=== PATIENT | female | born 1960 | race African-American/Black ===

== ENCOUNTER → 2019-06-18 | Outpatient (CLI) | payer BC ==
--- NOTE | 2019-06-18 14:02 | XCELERA REPORT ---
[address] [place] [facility] [address] Lower Extremity Venous Evaluation Procedure: Color flow and duplex imaging of the veins of the left lower extremity as well as the right Common Femoral vein. Right Sided Venous Evaluation The right common femoral vein is fully compressible. Normal vessel filling wall to wall, compression and augmentation as well as Colour flow down to the infrageniculate veins. Left Sided Venous Evaluation Normal vessel filling wall to wall, compression and augmentation as well as Colour flow down to the infrageniculate veins. Interpretation Summary No duplex evidence of DVT or obstruction in the left lower extremity nor in the right Common Femoral vein. Name: DEANGELO PETERSON Age: 59 yrs Gender: Female : 1960 Patient Status: Outpatient Patient Location: Study Date: 06/18/2019 01:06 PM Reason For Study: LLE PAIN Ordering Physician: ISAIAS WU Performed By: Penny Moncada : ISAIAS WU > Estuardo Price
== END ==
LOC: SP 12:42
PROVIDERS: ATTEND Physician Assistant
DX: M79.605 Pain in left leg (principal); M79.89 Other specified soft tissue disorders
CPT/HCPCS: 93971

== ENCOUNTER 2019-07-30 06:29 | Inpatient (IN) | payer BC ==
[2019-07-30] MEDS ORDERED: METOPROLOL TARTRATE PF/INJ 5 MG/5 ML SDV IV ONE ×2 (06:46→06:48)
[2019-07-30] MEDS ORDERED: ASPIRIN 81 MG TABLET, CHEWABLE PO ONE (06:48)
--- NOTE | 2019-07-30 06:56 | ER Document Report ---
ED General - General Chief Complaint: Breathing Difficulty Stated Complaint: CHEST PAIN Time Seen by Provider: 07/30/19 06:41 Primary Care Provider: ISAIAS WU PA [PHYSICIAN BUSINESS PERFORMANCE SPECIALIST] - Follow up as needed TRAVEL OUTSIDE OF THE [place] IN LAST 30 DAYS: No - HPI Notes: Mrs. Aleman is a 59-year-old female presenting with a chief complaint of palpitations, rapid heart rate shortness of breath and minimal tightness in central chest area without radiation. Patient awakened with symptoms this morning and they are persistent. This lady has a history of hypertension and is followed by Dr. Ramos. She had a previous hospitalization in 2010 for paroxysmal atrial fibrillation. She says she is not taking aspirin or any type of anticoagulant. Non-smoker. No known history of hyperlipidemia. Denies diabetes. Family history negative for CAD. Denies use of alcohol or drugs. Pertinent prior history: Surgery for fibroid uterus about 10 years ago. Postmenopausal. Allergy to penicillin. - Related Data Allergies/Adverse Reactions: Penicillins Allergy (Intermediate, Verified 08/06/11 09:38) Swelling, itching Past Medical History - General Information source: Patient, Relative - Social History Smoking Status: Never Smoker Family History: Reviewed & Not Pertinent Patient has suicidal ideation: No Patient has homicidal ideation: No - Past Medical History Cardiac Medical History: Reports: Hx Hypertension - Controlled with meds Denies: Hx Coronary Artery Disease, Hx Heart Attack Pulmonary Medical History: Denies: Hx Asthma, Hx Bronchitis, Hx COPD, Hx Pneumonia Neurological Medical History: Denies: Hx Cerebrovascular Accident, Hx Seizures Musculoskeletal Medical History: Denies Hx Arthritis Past Surgical History: Reports: Hx Gynecologic Surgery - Uterine fibroids removed - Immunizations Hx Diphtheria, Pertussis, Tetanus Vaccination: Yes Review of Systems - Review of Systems Notes: Constitutional: Negative for fever. HENT: Negative for sore throat. Eyes: Negative for visual changes. Cardiovascular: As per HPI. Respiratory: As per HPI. Gastrointestinal: Negative for abdominal pain, vomiting or diarrhea. Genitourinary: Negative for dysuria. Musculoskeletal: Negative for back pain. Skin: Negative for rash. Neurological: Negative for headaches, weakness or numbness. 10 point ROS negative except as marked above and in HPI. Physical Exam - Vital signs Vitals: Temp Pulse Resp BP Pulse Ox 97.7 F 70 18 114/75 95 07/30/19 06:41 07/30/19 06:41 07/30/19 06:41 07/30/19 06:41 07/30/19 06:41 - Notes Notes: GENERAL: Well-developed well-nourished female approximately stated age who appears anxious. SKIN: Warm and dry. Good turgor no rashes. HEAD: Normocephalic atraumatic. EYES: PERRLA. EOMI. Conjunctivae and sclerae clear. EARS: CANALS AND TMS CLEAR. NOSE: CLEAR. MOUTH: Moist mucosa. Good dentition. No stridor or edema. No drooling. Throat: Clear. NECK: Supple. No masses or thyromegaly. No adenopathy. Carotids 2+ without bruits. No JVD. BACK: Symmetrical without tenderness. CHEST: Respirations unlabored. Breath sounds clear and symmetrical. HEART: Rhythm is rapid and irregularly irregular. No murmur gallop or rub. ABDOMEN: Soft nontender without masses, organomegaly or rebound. Bowel sounds normally active. No bruits. GENITALIA: Deferred. EXTREMITIES: Trace ankle edema bilaterally. No calf tenderness. Cap refill less than 1.5 seconds. Dorsalis pedis and posterior tibial pulses 3+ and symmetrical. NEUROLOGICAL: GCS 15. Alert and oriented x3. Normal gait. Fluent speech. Cranial nerves II through XII intact. Sensorimotor and cerebellar normal. Normal tone. Psychiatric: Anxious. Course - Re-evaluation Re-evalutation: 07/30/19 07:33 Patient was initially given a total of 15 mg of metoprolol and 5 mg increments. Rate came down to about 140. Symptoms unchanged. Chest remains clear. Blood pressure 114/70. I am going to give her 500 cc bolus of normal saline and also 20 mg of diltiazem bolus and a continuous IV infusion of diltiazem 5 mg/h. 07/30/19 08:31 Heart rate is still around 150 with blood pressure 104/65. Patient has had a 20 mg IV bolus of diltiazem about 30 minutes ago and she is now up to 15 mg/h on diltiazem drip. I am going to give her an additional 20 mg of diltiazem IV at this time. 07/30/19 09:15 Patient has received maximal therapy with diltiazem and still has a heart rate of around 140. We are going to give this patient a dose of IV digoxin. Also note that her potassium is marginal at 3.5. I am going to give her some additional potassium IV and also check a magnesium level. 07/30/19 10:39 Mag level is below 2. We will give some supplemental magnesium. Her right is basically unchanged. She no longer has any chest pain or pressure. Generally feels better. Chest is clear. Because of the persistent high heart rate she is going to need ICU admission. This is been discussed with the employment program representative on-call Dr. Wild Ramírez who will evaluate the patient for admission to ICU at this time. Findings and te mmendations are discussed with patient and her family in detail. - Vital Signs Vital signs: Temp Pulse Resp BP Pulse Ox 98.4 F 70 13 111/73 99 07/30/19 07:23 07/30/19 06:41 07/30/19 10:31 07/30/19 10:31 07/30/19 10:31 - Laboratory Result Diagrams: 07/30/19 06:40 07/30/19 06:40 Laboratory results interpreted by me: 07/30/19 07/30/19 07/30/19 06:40 06:40 06:40 WBC 13.5 H RDW 14.2 H Absolute Neuts (auto) 9.8 H Sodium 136.0 L Potassium 3.5 L Glucose 115 H AST 41 H NT-Pro-B Natriuret Pep 3780 H - Diagnostic Test Radiology reviewed: Image reviewed - Portable chest x-ray shows cardiomegaly with no focal infiltrate, pleural effusion or pneumothorax, Reports reviewed Critical Care Note - Critical Care Note Total time excluding time spent on procedures (mins): 105 Comments: Recurrent paroxysmal atrial fibrillation. No acute ST changes noted on EKG. monitor tech. Cardiac labs and chest x-ray requested. TSH requested. Will administer IV beta-jessica for rate control. Anticipate admission. Multiple subsequent interventions including multiple doses of metoprolol, mul tiple doses of diltiazem. IV diltiazem drip with titration. IV digoxin. Supplemental potassium and magnesium IV. ICU admission. Discharge - Discharge Clinical Impression: Atrial fibrillation with rapid ventricular response, Chest pain, Hypokalemia Condition: Fair Disposition: ADMITTED INPATIENT Admitting Provider: Desiree (Camera Repairman) Unit Admitted: ICU Referrals: ISAIAS WU PA [PHYSICIAN BUSINESS PERFORMANCE SPECIALIST] - Follow up as needed
[2019-07-30] MEDS ORDERED: NORMAL SALINE 500 ML IV ONE (07:06)
[2019-07-30 07:12] LABS: ALBUMIN 3.8 g/dL (3.5-5.0); ALKALINE PHOSPHATASE 64 U/L (38-126); ANION GAP 10 (5-19); ASPARTATE AMINO TRANSFERASE 41 U/L (14-36); BILIRUBIN,DIRECT 0.1 mg/dL (0.0-0.4); BILIRUBIN,TOTAL 0.8 mg/dL (0.2-1.3); BLOOD UREA NITROGEN 17 mg/dL (7-20); CALCIUM 9.5 mg/dL (8.4-10.2); CARBON DIOXIDE 25 mmol/L (22-30); CHLORIDE 101 mmol/L (98-107); GLUCOSE 115 mg/dL (75-110); POTASSIUM 3.5 mmol/L (3.6-5.0); TOTAL PROTEIN 6.8 g/dL (6.3-8.2)
[2019-07-30 07:14] LABS: ABSOLUTE BASOPHILS # (AUTO) 0.1 10^3/uL (0.0-0.2); ABSOLUTE EOSINOPHILS # (AUTO) 0.1 10^3/uL (0.0-0.6); ABSOLUTE LYMPHOCYTES (AUTO) 2.3 10^3/uL (0.5-4.7); ABSOLUTE MONOCYTES (AUTO) 1.2 10^3/uL (0.1-1.4); ABSOLUTE NEUT (AUTO) 9.8 10^3/uL (1.7-8.2); BASOPHILS % (AUTO) 0.5 % (0-2); EOSINOPHILS % (AUTO) 0.5 % (0-6); HEMATOCRIT 39.3 % (36.0-47.0); HEMOGLOBIN 13.1 g/dL (12.0-15.5); LYMPHOCYTES % (AUTO) 17.3 % (13-45); MEAN CORPUSCULAR HEMOGLOBIN 30.8 pg (27.0-33.4); MEAN CORPUSCULAR HGB CONC 33.3 g/dL (32.0-36.0); MEAN CORPUSCULAR VOLUME 92 fl (80-97); MONOCYTES % (AUTO) 9.3 % (3-13); PLATELET COUNT 231 10^3/uL (150-450); RED BLOOD COUNT 4.25 10^6/uL (3.72-5.28); RED CELL DISTRIBUTION WIDTH 14.2 % (11.5-14.0); SEGMENTED NEUTROPHILS % (AUTO) 72.4 % (42-78); TOTAL CELLS COUNTED % (AUTO) 100 %; WHITE BLOOD COUNT 13.5 10^3/uL (4.0-10.5)
[2019-07-30 07:24] LABS: NT PRO BNP 3780 pg/mL (<125)
[2019-07-30 07:25] LABS: TROPONIN I < 0.012 ng/mL
[2019-07-30] MEDS ORDERED: DILTIAZEM HCL INJ 25 MG/5 ML VIAL IV ONE ×2 (07:31→08:30)
[2019-07-30] MEDS ORDERED: DILTIAZEM HCL/D5W 125 MG/125 ML RTUINJ IV PRN (07:32)
--- NOTE | 2019-07-30 08:18 | RADIOLOGY REPORT (SQ) ---
EXAM DESCRIPTION: CHEST SINGLE VIEW COMPLETED DATE/TIME: 07/30/2019 7:20 am REASON FOR STUDY: Chest pain COMPARISON: 05/06/2015 EXAM PARAMETERS: NUMBER OF VIEWS: One view. TECHNIQUE: Single frontal radiographic view of the chest acquired. RADIATION DOSE: NA LIMITATIONS: None. FINDINGS: LUNGS AND PLEURA: Bibasilar focal patchy areas of increased parenchymal density, may be o n the basis of infiltrate/atelectasis. No pneumothorax or pleural effusion. MEDIASTINUM AND HILAR STRUCTURES: No masses. Contour normal. HEART AND VASCULAR STRUCTURES: Borderline cardiomegaly, may be in part related to patient positionin g. Normal vasculature. BONES: No acute findings. HARDWARE: None in the chest. OTHER: No other significant finding. IMPRESSION: 1. Bibasilar focal patchy areas increased parenchymal density, may be on the basis of i nfiltrate/atelectasis. 2. Borderline cardiomegaly, may be in part related to patient positioning. TECHNICAL DOCUMENTATION: JOB ID: [id number] [employer]- All Rights Reserved Reading location - IP/workstation name: [email or web address]
[2019-07-30] MEDS ORDERED: DIGOXIN INJ 0.5 MG/2 ML AMPULE IV ONE (09:13)
[2019-07-30] MEDS ORDERED: 1/2 NORMAL SALINE 1,000 ML IV ONE (09:16)
[2019-07-30] MEDS ORDERED: POTASSI CL 20 MEQ/50 ML RIDER 20 MEQ/50 ML RTUPB IV ONE (09:17)
--- NOTE | 2019-07-30 09:43 | EKG REPORT ---
SEVERITY:- ABNORMAL ECG - ATRIAL FIBRILLATION WITH RAPID V-RATE NONSPECIFIC T ABNORMALITIES, DIFFUSE LEADS : Confirmed by: Paul Cameron 30-Jul-2019 09:42:10
[2019-07-30] MEDS ORDERED: MAGNESIUM SULFATE INJ 8 MEQ/2 ML IV ONE (10:30)
[2019-07-30 11:48] LABS: PHOSPHORUS 4.3 mg/dL (2.5-4.5)
[2019-07-30] MEDS: HEPARIN SODIUM,PORCINE/D5W 25,000 UNIT/250 ML RTUINJ IV PRN (11:49)
[2019-07-30 11:57] LABS: INTERNATIONAL RATION (INR) 1.07; PROTHROMBIN TIME 13.9 SEC (11.4-15.4)
[2019-07-30 11:58] LABS: PARTIAL THROMBOPLASTIN TIME 25.2 SEC (23.5-35.8)
[2019-07-30] MEDS ORDERED: HEPARIN SOD (PORCINE) 1,000 UNIT/ML 10 ML VIAL IV ONE (12:30)
--- NOTE | 2019-07-30 12:37 | RADIOLOGY REPORT (SQ) ---
EXAM DESCRIPTION: CT CHEST WITH COMPLETED DATE/TIME: 07/30/2019 12:23 pm REASON FOR STUDY: atrial fibrillation and shortness of breath COMPARISON: Same day radiograph TECHNIQUE: CT scan of the chest performed using helical scanning technique with dynamic intravenous contrast injection. Images reviewed with lung, soft tissue and bone windows. Reconstructed coronal and sagittal MPR and MIP images reviewed. All images stored on PACS. All CT scanners at this facility use dose modulation, iterative reconstruction, and/or weight based d osing when appropriate to reduce radiation dose to as low as reasonably achievable (ALARA). [facility]: Dose Right [facility]: CareDose [facility]: Dose Right [facility]: Teradose 4D [facility]: Fishin' Glue CONTRAST TYPE AND DOSE: contrast/concentration: Isovue 350.00 mg/ml; Total Contrast Delivered: 72.7 ml; Total Saline Delivered: 15.0 ml RENAL FUNCTION: Creatinine 0.75 RADIATION DOSE: CT Rad equipment meets quality standard of care and radiation dose reduction techniq ues were employed. CTDIvol: 21.1 mGy. DLP: 786 mGy-cm. . LIMITATIONS: None. FINDINGS: LUNGS AND PLEURA: Small right pleural effusion. Minimal right lower lobe ground-glass att enuation, likely atelectatic change. No pneumothorax. No suspicious nodules or masses. HILAR AND MEDIASTINAL STRUCTURES: No identified masses or abnormal nodes. HEART AND VASCULAR STRUCTURES: Cardiomegaly. No pericardial effusion. Scattered coronary atheroscle rosis. HARDWARE: None in the chest. UPPER ABDOMEN: Moderate size hiatal hernia. THYROID AND OTHER SOFT TISSUES: No masses. No adenopathy. BONES: No significant finding. OTHER: No other significant finding. IMPRESSION: 1. Trace right pleural effusion with minimal right lower lobe ground-glass opacities, l ikely atelectasis although infectious/ inflammatory component not entirely excluded. 2. Cardiomegaly. 3. Moderate hiatal hernia. TECHNICAL DOCUMENTATION: JOB ID: [id number] Quality ID # [id number]: Final reports with documentation of one or more dose reduction techniques (e.g., Au tomated exposure control, adjustment of the mA and/or kV according to patient size, use of iterative reconstruction technique) 2010 [employer]- All Rights Reserved Reading location - IP/workstation name: [email or web address]
[2019-07-30] MEDS: RINGERS SOLUTION,LACTATED 1,000 ML IV PRN ×2 (13:00→23:30)
--- NOTE | 2019-07-30 13:18 | CRITICAL CARE ADMISSION REPORT ---
HPI Date:: 07/30/19 Time:: 11:16 Reason for ICU Reason:: Atrial fibrillation, rapid ventricular rate, shortness of breath HPI: 59-year-old black female with a history of atrial fibrillation presented to the emergency room with a feeling of fullness in her chest with dyspnea on exertion. In the emergency department she was found to have atrial fibrillation with rapid ventricular response not associated with any hypotension. The emergency room attempted to control the rate at first with a beta-jessica which was not successful. She was given 3 doses without any changes. She then was given 2 boluses of diltiazem and started on a diltiazem drip which she is currently on. This did not control her heart rate as well. She was also given a bolus of digoxin 0.25. She denies overt chest pain. She says she feels weak. She has had no nausea vomiting or diarrhea. She has had no fever cough or sputum production. She denies dysuria, hematuria, melena or hematochezia. He has had no abdominal discomfort. She has had no heat or cold intolerance and no history of thyroid disease. She denies hemoptysis. No use of recreational drugs nor binging of alcohol. This occurred while she was at work. She states she has 1 cup of coffee. She denies any [id number] medications except for Robitussin which she took for congestion in her chest No use of high energy caffeinated drinks She did have some wine but does not endorse an excess amount. Work-up in the emergency room revealed a TSH of approximately 2.6 CBC was unremarkable urinalysis was pending. - Diagnosis/Plan (1) Persistent atrial fibrillation with rapid ventricular response Is this a current diagnosis for this admission?: Yes (2) Paroxysmal atrial fibrillation with rapid ventricular response Is this a current diagnosis for this admission?: Yes (3) Atrial enlargement, bilateral Is this a current diagnosis for this admission?: Yes (4) Atrial fibrillation with rapid ventricular response Is this a current diagnosis for this admission?: Yes (5) Leukocytosis, unspecified Qualifiers: Leukocytosis type: leukemoid reaction Qualified Code(s): D72.823 - Leukemoid reaction Is this a current diagnosis for this admission?: Yes (6) Edema, lower extremity Is this a current diagnosis for this admission?: Yes Plan: Has been ongoing. Suspect right heart failure. Await echo - . Plan Summary: Patient will be admitted to the ICU with continuous hemodynamic monitoring. Will start patient on heparin drip. Patient sent for stat CT scan of chest to rule out PE. None seen. There were mild effusions but no significant findings. If atrial fibrillation is persistent we will reload with digoxin. Obtain official echocardiogram when patient's heart rate has improved. [id number] is: 2 Will determine if there is an infectious cause as well. Obtain urinalysis and urine drug screen. Cardiology consult especially with the refractory atrial fibrillation. Follow-up labs, ABG and response to digoxin loading Past Medical History Cardiac Medical History: Reports: Atrial Fibrillation, Hypertension - Controlled with meds Denies: Congestive Heart Failure, Coronary Artery Disease, DVT, Myocardial Infarction, Peripheral Vascular Disease, Pulmonary Embolism Pulmonary Medical History: Denies: Asthma, Bronchitis, Chronic Obstructive Pulmonary Disease (COPD), Pneumonia, Respiratory Failure, Sleep Apnea EENT Medical History: Reports: None Neurological Medical History: Reports: None Denies: Hemorrhagic CVA, Ischemic CVA, Migraine, Seizures Endocrine Medical History: Reports: Obesity Denies: Diabetes Mellitus Type 1, Diabetes Mellitus Type 2, Hypothyroidism Renal/ Medical History: Reports: None Malignancy Medical History: Reports: None GI Medical History: Reports: None Musculoskeltal Medical History: Reports: Other - torn meniscus Denies: Arthritis Skin Medical History: Reports: None Psychiatric Medical History: Reports: None Traumatic Medical History: Reports: None Hematology: Reports: None Denies: Anemia Infectious Medical History: Reports: None Past Surgical History Past Surgical History: Reports: Other - Right knee meniscus repair Social/Family History - Social History Lives with: Spouse/Significant other Smoking Status: Never Smoker Frequency of Alcohol Use: Occasional Hx Recreational Drug Use: No Drugs: None Hx Prescription Drug Abuse: No - Family History Family History: Hypertension. denies: CAD, COPD, CVA, DM, Malignancy, Thyroid Disfunction - Medication/Allergies Home Medications: Atenolol [Tenormin] 25 mg PO DAILY 08/06/11 Claritin 25 mg PO DAILY 05/06/15 Fluticasone Propionate [Flonase Nasal Cardale 50 Mcg/Cardale 16 gm] 2 spray NASL DAILY 05/06/15 Lisinopril/Hydrochlorothiazide [Lisinopril-Hctz 20-25 mg Tab] 1 each PO DAILY 05/06/15 Vitamin D3 50,000 mg PO MO 05/06/15 Allergies/Adverse Reactions: Penicillins Allergy (Intermediate, Verified 08/06/11 09:38) Swelling, itching Review of Systems Constitutional: PRESENT: fatigue, weakness. ABSENT: anorexia, chills, fever(s), headache(s), night sweats, weight gain, weight loss Eyes: PRESENT: visual disturbances - Occassionally blurry vision. No loss Ears: ABSENT: hearing changes Nose, Mouth, and Throat: ABSENT: headache(s), sore throat Breasts: PRESENT: other - thanh discoloration Cardiovascular: PRESENT: as per HPI, chest pain, dyspnea on exertion, edema. ABSENT: orthropnea, palpitations Respiratory: PRESENT: cough, dyspnea. ABSENT: hemoptysis, sputum Gastrointestinal: ABSENT: abdominal pain, constipation, diarrhea, hematemesis, hematochezia, melena, nausea, vomiting Genitourinary: ABSENT: difficulty urinating, dysuria, hematuria Musculoskeletal: PRESENT: muscle weakness, other - Has bilateral leg edema. Had US of both extremities for DVT--negative. Placed on pressure stockings Integumentary: PRESENT: as per HPI. ABSENT: diaphoresis, rash, wounds Neurological: PRESENT: as per HPI. ABSENT: syncope, tremor(s) Psychiatric: ABSENT: anxiety, depression, homidical ideation, suicidal ideation Endocrine: ABSENT: cold intolerance, heat intolerance, polydipsia, polyuria Hematologic/Lymphatic: ABSENT: easy bleeding, easy bruising Allergic/Immunologic: PRESENT: seasonal rhinorrhea Physical Exam Vital Signs: Temp Pulse Resp BP Pulse Ox 98.4 F 70 13 111/73 99 07/30/19 07:23 07/30/19 06:41 07/30/19 10:31 07/30/19 10:31 07/30/19 10:31 Intake & Output 07/29/19 07/30/19 07/31/19 06:59 06:59 06:59 Intake Total 504 Balance 504 Weight 115.666 kg Weight/Height Weight 115.666 kg Height 5 ft 6 in General appearance: PRESENT: no acute distress, cooperative, morbidly obese, well-developed, well-nourished. ABSENT: mild distress, severe distress Exam: Obese, nontoxic, 59 yo black female, NAD Head exam: PRESENT: atraumatic, normocephalic Eye exam: PRESENT: conjunctiva pink, EOMI, PERRLA. ABSENT: conjunctival injection, nystagmus, scleral icterus Ear exam: PRESENT: normal external ear exam Mouth exam: PRESENT: moist, neck supple, tongue midline Neck exam: PRESENT: full ROM. ABSENT: carotid bruit, JVD, lymphadenopathy, thyromegaly, tracheal deviation Respiratory exam: PRESENT: clear to auscultation reina, unlabored. ABSENT: accessory muscle use, crackles, tachypnea, wheezes Cardiovascular exam: PRESENT: irregular rhythm, tachycardia, other - Bedside critical care echo shows intact EF, tachycardic, no effusion. RA enlargement, RV difficult to evaluate Pulses: PRESENT: +1 pedal pulses bilateral Vascular exam: PRESENT: normal capillary refill GI/Abdominal exam: PRESENT: normal bowel sounds, soft. ABSENT: ascites, distended, guarding, mass, organolmegaly, rebound, tenderness Rectal exam: PRESENT: deferred Extremities exam: PRESENT: pedal edema, +1 edema. ABSENT: calf tenderness Musculoskeletal exam: PRESENT: other - Has edema bilaterally. ABSENT: deformi ty, dislocation Neurological exam: PRESENT: alert, awake, oriented to person, oriented to place, oriented to time, oriented to situation, CN II-XII grossly intact. ABSENT: mo tor sensory deficit, aphasic Psychiatric exam: PRESENT: appropriate affect, normal mood Focused psych exam: ABSENT: pressured speech, psychomotor agitation, restlessness Skin exam: PRESENT: dry, intact, normal color. ABSENT: cyanosis, mottled, pallor, petechiae, rash, urticaria, vesicles Tubes/Lines: ABSENT: Endotracheal Tube, Chest Tube, Central Line, Arterial Catheter, Dialysis catheter, Peg Tube, Nasogastic Tube, Other Laboratory/Radiographs Laboratory Results: 07/30/19 06:40 07/30/19 06:40 07/30/19 07/30/19 07/30/19 06:40 06:40 06:40 WBC 13.5 H RBC 4.25 Hgb 13.1 Hct 39.3 MCV 92 MCH 30.8 MCHC 33.3 RDW 14.2 H Plt Count 231 Seg Neutrophils % 72.4 Sodium 136.0 L Potassium 3.5 L Chloride 101 Carbon Dioxide 25 Anion Gap 10 BUN 17 Creatinine 0.75 Est GFR ( Amer) > 60 Glucose 115 H Calcium 9.5 Magnesium Total Bilirubin 0.8 AST 41 H Alkaline Phosphatase 64 Total Protein 6.8 Albumin 3.8 TSH 2.17 07/30/19 06:40 WBC RBC Hgb Hct MCV MCH MCHC RDW Plt Count Seg Neutrophils % Sodium Potassium Chloride Carbon Dioxide Anion Gap BUN Creatinine Est GFR ( Amer) Glucose Calcium Magnesium 1.8 Total Bilirubin AST Alkaline Phosphatase Total Protein Albumin TSH 07/30/19 06:40 Troponin I < 0.012 NT-Pro-B Natriuret Pep 3780 H Impressions: Chest X-Ray 07/30/19 06:51 IMPRESSION: 1. Bibasilar focal patchy areas increased parenchymal density, may be on the basis of infiltrate/atelectasis. 2. Borderline cardiomegaly, may be in part related to patient positioning. All labs, radiographs, diagnostic studies and EKGs were personally reviewed: Yes In addition, reports of radiographic and diagnostic studies were read: Yes Critical Time Critical Time (minutes): 68 -: The care of a critically ill patient is dynamic. This note represents a static moment in the admission process. orders and treatments may be given simultaneo usly and urgentl, and time is not registration representative of the treatment process. This patient requires Critical Care secondary to life threatening organ or limb dysfunction. Without the need for Critical Care services, the patient is at risk for increased mortality and morbidity. MPOA: Code Status: Full
[2019-07-30] MEDS ORDERED: DEXTROSE 5%-WATER 500 ML with AMIODARONE HCL 900 MG IV PRN ×2 (13:44)
[2019-07-30 13:52] LABS: VENOUS BLOOD BASE EXCESS -0.7 mmol/L; VENOUS BLOOD HCO3 24.9 mmol/L (20-32); VENOUS BLOOD PCO2 44.4 mmHg (35-63); VENOUS BLOOD PH 7.37 (7.30-7.42)
[2019-07-30 14:10] LABS: APPEARANCE,URINE CLEAR; BILIRUBIN,URINE NEGATIVE (NEGATIVE); COLOR,URINE STRAW; GLUCOSE, URINE NEGATIVE (NEGATIVE); KETONES,URINE 20 mg/dL (NEGATIVE); LEUKOCYTE ESTERASE,URINE NEGATIVE (NEGATIVE); NITRITE,URINE NEGATIVE (NEGATIVE); PROTEIN,URINE NEGATIVE (NEGATIVE); URINE SPECIFIC GRAVITY 1.032; UROBILINOGEN,URINE NEGATIVE mg/dL (<2.0)
[2019-07-30] MEDS ORDERED: HEPARIN SOD (PORCINE) 1,000 UNIT/ML 10 ML VIAL IV PRN (14:13)
[2019-07-30] MEDS ORDERED: AMIODARONE HCL 150 MG in DEXTROSE 5%-WATER 100 ML IV ONE (14:30)
[2019-07-30 17:49] LABS: URINE AMPHETAMINES SCREEN NEGATIVE; URINE BARBITURATES SCREEN NEGATIVE; URINE BENZODIAZEPINES SCREEN NEGATIVE; URINE COCAINE SCREEN NEGATIVE; URINE MARIJUANA (THC) SCREEN NEGATIVE; URINE METHADONE SCREEN NEGATIVE; URINE PHENCYCLIDINE SCREEN NEGATIVE
[2019-07-30 18:44] LABS: ANION GAP 10 (5-19); BLOOD UREA NITROGEN 11 mg/dL (7-20); CALCIUM 9.6 mg/dL (8.4-10.2); CARBON DIOXIDE 24 mmol/L (22-30); CHLORIDE 103 mmol/L (98-107); GLUCOSE 89 mg/dL (75-110); POTASSIUM 3.5 mmol/L (3.6-5.0)
--- NOTE | 2019-07-30 22:09 | PDOC CONSULTATION ---
Consultation-Blank Consultation: CARDIOLOGY CONSULTATION by Dr. Charlotte Carpenter on 07/30/2019. REASON FOR CONSULTATION: Atrial fibrillation with uncontrolled ventricular response, rapid heart rate being very difficult to control. CONSULT REQUESTING PHYSICIAN: Dr. Ramírez, critical care courtroom clerk. HISTORY PRESENT ILLNESS: Patient is a 49-year-old Afro-[place] female with known history of hypertension and hyperlipidemia who states since the past 5 days has been having rapid palpitations. She also has been having dyspnea on exertion with shortness of breath at rest. She also has been having some fullness and pressure-like sensation in the chest. She does have a history of hiatal hernia and GERD. She was found to be in atrial fibrillation with rapid ventricular response in the emergency room and multiple medications has not controlled the patient's heart rate on the patient at present is on an amiodarone drip with still the blood pressure being stable with a heart rate still being elevated around 125 to 130 bpm. At present she denies any chest pain or discomfort. There is no shortness of breath on rest on the bed. There is no PND orthopnea. The patient has no prior history of atrial fibrillation. Past Medical History Cardiac Medical History: Reports: Atrial Fibrillation, Hypertension - Controlled with meds Denies: Congestive Heart Failure, Coronary Artery Disease, DVT, Myocardial Infarction, Peripheral Vascular Disease, Pulmonary Embolism Pulmonary Medical History: Denies: Asthma, Bronchitis, Chronic Obstructive Pulmonary Disease (COPD), Pneumonia, Respiratory Failure, Sleep Apnea. The patient states she has had to use sleep studies in the past the last of which was about a year ago and both of these were negative for sleep apnea. EENT Medical History: Reports: None Neurological Medical History: Reports: None Denies: Hemorrhagic CVA, Ischemic CVA, Migraine, Seizures Endocrine Medical History: Reports: Obesity Denies: Diabetes Mellitus Type 1, Diabetes Mellitus Type 2, Hypothyroidism Renal/ Medical History: Reports: None Malignancy Medical History: Reports: None GI Medical History: Reports: None Musculoskeltal Medical History: Reports: Other - torn meniscus Denies: Arthritis Skin Medical History: Reports: None Psychiatric Medical History: Reports: None Traumatic Medical History: Reports: None Hematology: Reports: None Denies: Anemia Infectious Medical History: Reports: None Past Surgical History Past Surgical History: Reports: Other - Right knee meniscus repair Social/Family History - Social History Lives with: Spouse/Significant other Smoking Status: Never Smoker Frequency of Alcohol Use: Occasional Hx Recreational Drug Use: No Drugs: None Hx Prescription Drug Abuse: No - Family History Family History: Hypertension. denies: CAD, COPD, CVA, DM, Malignancy, Thyroid Disfunction - Medication/Allergies Home Medications: Atenolol [Tenormin] 25 mg PO DAILY 08/06/11 Claritin 25 mg PO DAILY 05/06/15 Fluticasone Propionate [Flonase Nasal [place] 50 Mcg/[place] 16 gm] 2 spray NASL DAILY 05/06/15 Lisinopril/Hydrochlorothiazide [Lisinopril-Hctz 20-25 mg Tab] 1 each PO DAILY 05/06/15 Vitamin D3 50,000 mg PO MO 05/06/15 Allergies/Adverse Reactions: Penicillins Allergy (Intermediate, Verified 08/06/11 09:38) Swelling, itching RESUSCITATION STATUS: The patient is a full code. Her is her surrogate healthcare decision maker. Review of Systems Constitutional: PRESENT: fatigue, weakness. ABSENT: anorexia, chills, fever(s), headache(s), night sweats, weight gain, weight loss Eyes: PRESENT: visual disturbances - Occassionally blurry vision. No loss Ears: ABSENT: hearing changes Nose, Mouth, and Throat: ABSENT: headache(s), sore throat Breasts: PRESENT: other - thanh discoloration Cardiovascular: PRESENT: as per HPI, chest pain, dyspnea on exertion, edema. ABSENT: orthropnea, palpitations Respiratory: PRESENT: cough, dyspnea. ABSENT: hemoptysis, sputum Gastrointestinal: ABSENT: abdominal pain, constipation, diarrhea, hematemesis, hematochezia, melena, nausea, vomiting Genitourinary: ABSENT: difficulty urinating, dysuria, hematuria Musculoskeletal: PRESENT: muscle weakness, other - Has bilateral leg edema. Had US of both extremities for DVT--negative. Placed on pressure stockings Integumentary: PRESENT: as per HPI. ABSENT: diaphoresis, rash, wounds Neurological: PRESENT: as per HPI. ABSENT: syncope, tremor(s) Psychiatric: ABSENT: anxiety, depression, homidical ideation, suicidal ideation Endocrine: ABSENT: cold intolerance, heat intolerance, polydipsia, polyuria Hematologic/Lymphatic: ABSENT: easy bleeding, easy bruising Allergic/Immunologic: PRESENT: seasonal rhinorrhea Current Medications Heparin Sodium (Porcine) (Heparin Inj 1,000 Unit/Ml 10 Ml Vial) 0 - 12,000 unit IV .BOLUS PER PROTOCOL PRN; Protocol PRN Reason: RESPOND TO aPTT VALUE Stop: 08/29/19 14:12 Lactated Ringer's (Lactated Ringers 1000 Ml Iv Soln) 1,000 mls @ 100 mls/hr IV CONTINUOUS PRN PRN Reason: THIS MED IS NOT "PRN" Stop: 08/29/19 11:00 Last Admin: 07/30/19 13:00 Dose: 100 mls/hr Documented by: Heparin Sodium/Dextrose (Heparin Rtu 25,000 Unit/250 Ml D5w Premix) 25,000 unit in 250 mls @ 0 mls/hr IV CONTINUOUS PRN; Protocol PRN Reason: THIS MED IS NOT "PRN" Stop: 08/29/19 11:10 Last Admin: 07/30/19 11:49 Dose: 10 mls/hr Documented by: Amiodarone HCl 900 mg/ (Dextrose) 500 mls @ 0 mls/hr IV CONTINUOUS PRN; Protocol PRN Reason: THIS MED IS NOT "PRN" Stop: 08/02/19 13:43 Last Titration: 07/30/19 20:54 Dose: 0.5 mg/min, 16.67 mls/hr Documented by: Sodium Chloride (Saline Flush 2.5 Ml Monoject Prefil Syrin) 2.5 ml IV Q8 SUSIE Stop: 08/29/19 13:59 Last Admin: 07/30/19 14:53 Dose: Not Given Documented by: Discontinued Medications Aspirin (Aspirin 81 Mg Chewable Tablet) 324 mg PO NOW ONE Stop: 07/30/19 06:49 Last Admin: 07/30/19 07:09 Dose: 324 mg Documented by: Digoxin (Lanoxin Inj 0.5 Mg/2 Ml Ampule) 0.25 mg IV NOW ONE Stop: 07/30/19 09:14 Last Admin: 07/30/19 09:29 Dose: 0.25 mg Documented by: Diltiazem HCl (Cardizem Inj 25 Mg/5 Ml Vial) 20 mg IV NOW ONE Stop: 07/30/19 07:32 Last Admin: 07/30/19 07:35 Dose: 20 mg Documented by: Diltiazem HCl (Cardizem Inj 25 Mg/5 Ml Vial) 20 mg IV NOW ONE Stop: 07/30/19 08:31 Last Admin: 07/30/19 08:42 Dose: 20 mg Documented by: Heparin Sodium (Porcine) (Heparin Inj 1,000 Unit/Ml 10 Ml Vial) 4,000 unit IV NOW ONE Stop: 07/30/19 12:31 Last Admin: 07/30/19 11:44 Dose: 4,000 units Documented by: Sodium Chloride (Nacl 0.9% 500 Ml Iv Soln) 500 mls @ 0 mls/hr IV NOW ONE Stop: 07/30/19 07:07 Last Infusion: 07/30/19 08:00 Dose: Infused Documented by: Diltiazem HCl (Cardizem Rtu Inj 125 Mg-D5w 125 Ml Premix) 125 mg in 125 mls @ 0 mls/hr IV CONTINUOUS PRN; Protocol PRN Reason: THIS MED IS NOT "PRN" Stop: 08/29/19 07:31 Last Titration: 07/30/19 08:18 Dose: 15 mls/hr Documented by: Sodium Chloride (Nacl 0.45% 1000 Ml Iv Soln) 1,000 mls @ 125 mls/hr IV NOW ONE Stop: 07/30/19 17:15 Last Infusion: 07/30/19 11:56 Dose: 0 mls/hr Documented by: Potassium Chloride/Water (Potassium Chloride Luis Antonio 20 Meq/50 Ml) 20 meq in 50 mls @ 25 mls/hr IV NOW ONE Stop: 07/30/19 11:16 Last Infusion: 07/30/19 11:45 Dose: Infused Documented by: Amiodarone HCl 150 mg/ (Dextrose) 100 mls @ 600 mls/hr IV NOW ONE; Protocol Stop: 07/30/19 14:39 Last Admin: 07/30/19 14:30 Dose: 600 mls/hr Documented by: Magnesium Sulfate (Magnesium Sulfate Pf/Inj 8 Meq/2 Ml Sdv) 8 meq IV NOW ONE Stop: 07/30/19 10:31 Last Admin: 07/30/19 10:39 Dose: 8 meq Documented by: Metoprolol Tartrate (Lopressor Inj/Pf 5 Mg/5 Ml Sdv) Confirm Administered Dose 5 mg IV .STK-MED ONE Stop: 07/30/19 06:47 Last Admin: 07/30/19 07:05 Dose: Not Given Documented by: Metoprolol Tartrate (Lopressor Inj/Pf 5 Mg/5 Ml Sdv) 15 mg IV NOW ONE Stop: 07/30/19 06:49 Last Admin: 07/30/19 07:15 Dose: 15 mg Documented by: PHYSICAL EXAMINATION: The patient is morbidly obese. At present in no acute distress. Selected Entries 07/30/19 07/30/19 07/30/19 13:00 17:40 17:49 Temperature 98.5 F Temperature Oral Source Pulse Rate 139 H Heart Rate ( Monitors) Respiratory 17 Rate Blood Pressure 123/94 H Blood Pressure 113/88 H [Right Upper Arm] Blood Pressure 103 Mean Blood Pressure 96 Mean [Right Upper Arm] Blood Pressure Sitting Position [Right Upper Arm] O2 Sat by Pulse 99 100 Oximetry Oxygen Delivery Room Air Method ( includes room air) 07/30/19 17:50 Temperature Temperature Source Pulse Rate Heart Rate ( 133 Monitors) Respiratory 22 H Rate Blood Pressure Blood Pressure [Right Upper Arm] Blood Pressure Mean Blood Pressure Mean [Right Upper Arm] Blood Pressure Position [Right Upper Arm] O2 Sat by Pulse Oximetry Oxygen Delivery Method ( includes room air) HEAD: Is atraumatic normocephalic. EYES: Pupils are equal round regular reactive to light and accommodation. There is no clinical pallor. There is no scleral icterus. External ocular movements are normal. EARS: Tympanic membranes are intact. External auditory canals are clear. NOSE: Nasal mucous membranes are not inflamed. There is no deviated nasal septum. MOUTH: Mucous membranes of mouth are moist. Tongue is moist. There is no ulcers. There is no bleeding from the gums. THROAT: There is no redness of the oropharynx. There is no exudates in the throat. SKIN: There is no petechia or ecchymosis. There is no skin rashes or skin lesions. NECK: Is supple. There is no JVD. Carotids are equal there is no bruits. There is no lymphadenopathy. There is no goiter. There is no accessory muscles of respiration in use. Trachea central. LUNGS: There is diminished air entry and prolonged expiration. On percussion there is hyperresonance. There is scattered rhonchi present. There is no rales or wheezing. There is no chest wall tenderness on palpation. HEART: S1-S2 is heard. S1 is of variable intensity. There is no S3 gallop. There is no S4 gallop. There is systolic murmur left sternal border and the apex, without radiation. There is no murmur of aortic stenosis. There is no aortic regurgitation murmur.. There is no rub. ABDOMEN: Is Nontender. There is no hepatosplenomegaly. Bowel sounds are well heard. EXTREMITIES: Femorals are deep. Femorals are slightly diminished. There is no femoral bruits. There is no pedal edema. There is no DVT or cellulitis. Leg pulses are diminished. There is no cyanosis or clubbing. Capillary refill is normal. There is no calf tenderness. GIG TENDER: The patient is conscious awake alert oriented x3 with no focal deficits. PSYCHIATRIC: The patient judgment and insight are intact her affect is normal. Labs- All tests 24 hr 07/30/19 07/30/19 07/30/19 06:40 06:40 06:40 WBC 13.5 H RBC 4.25 Hgb 13.1 Hct 39.3 MCV 92 MCH 30.8 MCHC 33.3 RDW 14.2 H Plt Count 231 Lymph % (Auto) 17.3 [place] % (Auto) 9.3 Eos % (Auto) 0.5 Baso % (Auto) 0.5 Absolute Neuts (auto) 9.8 H Absolute Lymphs (auto) 2.3 Absolute Monos (auto) 1.2 Absolute Eos (auto) 0.1 Absolute Basos (auto) 0.1 Seg Neutrophils % 72.4 PT INR APTT Carbonic Acid HCO3/H2CO3 Ratio ABG pH ABG pCO2 ABG pO2 ABG HCO3 ABG Total CO2 ABG O2 Saturation ABG Base Excess VBG pH VBG pCO2 VBG HCO3 VBG Base Excess FiO2 Sodium 136.0 L Potassium 3.5 L Chloride 101 Carbon Dioxide 25 Anion Gap 10 BUN 17 Creatinine 0.75 Est GFR ( Amer) > 60 Est GFR (MDRD) Non-Af > 60 Glucose 115 H Hemoglobin A1c % Lactic Acid Calcium 9.5 Phosphorus Magnesium Total Bilirubin 0.8 Direct Bilirubin 0.1 Neonat Total Bilirubin Not Reportable Neonat Direct Bilirubin Not Reportable Neonat Indirect Bili Not Reportable AST 41 H ALT 29 Alkaline Phosphatase 64 Creatine Kinase CK-MB (CK-2) Troponin I < 0.012 NT-Pro-B Natriuret Pep 3780 H Total Protein 6.8 Albumin 3.8 TSH Urine Color Urine Appearance Urine pH Ur Specific [place] Urine Protein Urine Glucose (UA) Urine Ketones Urine Blood Urine Nitrite Urine Bilirubin Urine Urobilinogen Ur Leukocyte Esterase Urine WBC (Auto) Urine RBC (Auto) Squamous Epi Cells Auto Urine Mucus (Auto) Urine Ascorbic Acid Urine Opiates Screen Urine Methadone Screen Ur Barbiturates Screen Ur Phencyclidine Scrn Ur Amphetamines Screen U Benzodiazepines Scrn Urine Cocaine Screen U Marijuana (THC) Screen 07/30/19 07/30/19 07/30/19 06:40 06:40 06:40 WBC RBC Hgb Hct MCV MCH MCHC RDW Plt Count Lymph % (Auto) [place] % (Auto) Eos % (Auto) Baso % (Auto) Absolute Neuts (auto) Absolute Lymphs (auto) Absolute Monos (auto) Absolute Eos (auto) Absolute Basos (auto) Seg Neutrophils % PT INR APTT Carbonic Acid HCO3/H2CO3 Ratio ABG pH ABG pCO2 ABG pO2 ABG HCO3 ABG Total CO2 ABG O2 Saturation ABG Base Excess VBG pH VBG pCO2 VBG HCO3 VBG Base Excess FiO2 Sodium Potassium Chloride Carbon Dioxide Anion Gap BUN Creatinine Est GFR ( Amer) Est GFR (MDRD) Non-Af Glucose Hemoglobin A1c % 6.0 Lactic Acid Calcium Phosphorus Magnesium 1.8 Total Bilirubin Direct Bilirubin Neonat Total Bilirubin Neonat Direct Bilirubin Neonat Indirect Bili AST ALT Alkaline Phosphatase Creatine Kinase CK-MB (CK-2) Troponin I NT-Pro-B Natriuret Pep Total Protein Albumin TSH 2.17 Urine Color Urine Appearance Urine pH Ur Specific [place] Urine Protein Urine Glucose (UA) Urine Ketones Urine Blood Urine Nitrite Urine Bilirubin Urine Urobilinogen Ur Leukocyte Esterase Urine WBC (Auto) Urine RBC (Auto) Squamous Epi Cells Auto Urine Mucus (Auto) Urine Ascorbic Acid Urine Opiates Screen Urine Methadone Screen Ur Barbiturates Screen Ur Phencyclidine Scrn Ur Amphetamines Screen U Benzodiazepines Scrn Urine Cocaine Screen U Marijuana (THC) Screen 07/30/19 07/30/19 07/30/19 06:40 06:40 11:30 WBC RBC Hgb Hct MCV MCH MCHC RDW Plt Count Lymph % (Auto) [place] % (Auto) Eos % (Auto) Baso % (Auto) Absolute Neuts (auto) Absolute Lymphs (auto) Absolute Monos (auto) Absolute Eos (auto) Absolute Basos (auto) Seg Neutrophils % PT 13.9 INR 1.07 APTT 25.2 Carbonic Acid HCO3/H2CO3 Ratio ABG pH ABG pCO2 ABG pO2 ABG HCO3 ABG Total CO2 ABG O2 Saturation ABG Base Excess VBG pH VBG pCO2 VBG HCO3 VBG Base Excess FiO2 Sodium Potassium Chloride Carbon Dioxide Anion Gap BUN Creatinine Est GFR ( Amer) Est GFR (MDRD) Non-Af Glucose Hemoglobin A1c % Lactic Acid Calcium Phosphorus 4.3 Magnesium Total Bilirubin Direct Bilirubin Neonat Total Bilirubin Neonat Direct Bilirubin Neonat Indirect Bili AST ALT Alkaline Phosphatase Creatine Kinase 53 CK-MB (CK-2) 1.23 Troponin I NT-Pro-B Natriuret Pep Total Protein Albumin TSH Urine Color Urine Appearance Urine pH Ur Specific [place] Urine Protein Urine Glucose (UA) Urine Ketones Urine Blood Urine Nitrite Urine Bilirubin Urine Urobilinogen Ur Leukocyte Esterase Urine WBC (Auto) Urine RBC (Auto) Squamous Epi Cells Auto Urine Mucus (Auto) Urine Ascorbic Acid Urine Opiates Screen Urine Methadone Screen Ur Barbiturates Screen Ur Phencyclidine Scrn Ur Amphetamines Screen U Benzodiazepines Scrn Urine Cocaine Screen U Marijuana (THC) Screen 07/30/19 07/30/19 07/30/19 11:30 13:11 13:11 WBC RBC Hgb Hct MCV MCH MCHC RDW Plt Count Lymph % (Auto) [place] % (Auto) Eos % (Auto) Baso % (Auto) Absolute Neuts (auto) Absolute Lymphs (auto) Absolute Monos (auto) Absolute Eos (auto) Absolute Basos (auto) Seg Neutrophils % PT INR APTT Carbonic Acid Cancelled HCO3/H2CO3 Ratio Cancelled ABG pH Cancelled ABG pCO2 Cancelled ABG pO2 Cancelled ABG HCO3 Cancelled ABG Total CO2 Cancelled ABG O2 Saturation Cancelled ABG Base Excess Cancelled VBG pH 7.37 VBG pCO2 44.4 VBG HCO3 24.9 VBG Base Excess -0.7 FiO2 Cancelled Sodium Potassium Chloride Carbon Dioxide Anion Gap BUN Creatinine Est GFR ( Amer) Est GFR (MDRD) Non-Af Glucose Hemoglobin A1c % Lactic Acid Calcium Phosphorus Magnesium Total Bilirubin Direct Bilirubin Neonat Total Bilirubin Neonat Direct Bilirubin Neonat Indirect Bili AST ALT Alkaline Phosphatase Creatine Kinase CK-MB (CK-2) Troponin I < 0.012 NT-Pro-B Natriuret Pep Total Protein Albumin TSH Urine Color Urine Appearance Urine pH Ur Specific [place] Urine Protein Urine Glucose (UA) Urine Ketones Urine Blood Urine Nitrite Urine Bilirubin Urine Urobilinogen Ur Leukocyte Esterase Urine WBC (Auto) Urine RBC (Auto) Squamous Epi Cells Auto Urine Mucus (Auto) Urine Ascorbic Acid Urine Opiates Screen Urine Methadone Screen Ur Barbiturates Screen Ur Phencyclidine Scrn Ur Amphetamines Screen U Benzodiazepines Scrn Urine Cocaine Screen U Marijuana (THC) Screen 07/30/19 07/30/19 07/30/19 13:49 14:00 14:00 WBC RBC Hgb Hct MCV MCH MCHC RDW Plt Count Lymph % (Auto) [place] % (Auto) Eos % (Auto) Baso % (Auto) Absolute Neuts (auto) Absolute Lymphs (auto) Absolute Monos (auto) Absolute Eos (auto) Absolute Basos (auto) Seg Neutrophils % PT INR APTT Carbonic Acid HCO3/H2CO3 Ratio ABG pH ABG pCO2 ABG pO2 ABG HCO3 ABG Total CO2 ABG O2 Saturation ABG Base Excess VBG pH VBG pCO2 VBG HCO3 VBG Base Excess FiO2 Sodium Potassium Chloride Carbon Dioxide Anion Gap BUN Creatinine Est GFR ( Amer) Est GFR (MDRD) Non-Af Glucose Hemoglobin A1c % Lactic Acid 1.9 Calcium Phosphorus Magnesium Total Bilirubin Direct Bilirubin Neonat Total Bilirubin Neonat Direct Bilirubin Neonat Indirect Bili AST ALT Alkaline Phosphatase Creatine Kinase CK-MB (CK-2) Troponin I NT-Pro-B Natriuret Pep Total Protein Albumin TSH Urine Color STRAW Urine Appearance CLEAR Urine pH 6.0 Ur Specific [place] 1.032 Urine Protein NEGATIVE Urine Glucose (UA) NEGATIVE Urine Ketones 20 H Urine Blood NEGATIVE Urine Nitrite NEGATIVE Urine Bilirubin NEGATIVE Urine Urobilinogen NEGATIVE Ur Leukocyte Esterase NEGATIVE Urine WBC (Auto) 0 Urine RBC (Auto) 0 Squamous Epi Cells Auto <1 Urine Mucus (Auto) RARE Urine Ascorbic Acid NEGATIVE Urine Opiates Screen NEGATIVE Urine Methadone Screen NEGATIVE Ur Barbiturates Screen NEGATIVE Ur Phencyclidine Scrn NEGATIVE Ur Amphetamines Screen NEGATIVE U Benzodiazepines Scrn NEGATIVE Urine Cocaine Screen NEGATIVE U Marijuana (THC) Screen NEGATIVE 07/30/19 07/30/19 07/30/19 17:57 17:57 17:57 WBC RBC Hgb Hct MCV MCH MCHC RDW Plt Count Lymph % (Auto) [place] % (Auto) Eos % (Auto) Baso % (Auto) Absolute Neuts (auto) Absolute Lymphs (auto) Absolute Monos (auto) Absolute Eos (auto) Absolute Basos (auto) Seg Neutrophils % PT INR APTT Carbonic Acid HCO3/H2CO3 Ratio ABG pH ABG pCO2 ABG pO2 ABG HCO3 ABG Total CO2 ABG O2 Saturation ABG Base Excess VBG pH VBG pCO2 VBG HCO3 VBG Base Excess FiO2 Sodium 136.9 L Potassium 3.5 L Chloride 103 Carbon Dioxide 24 Anion Gap 10 BUN 11 Creatinine 0.56 Est GFR ( Amer) > 60 Est GFR (MDRD) Non-Af > 60 Glucose 89 Hemoglobin A1c % Lactic Acid 1.8 Calcium 9.6 Phosphorus Magnesium 2.1 Total Bilirubin Direct Bilirubin Neonat Total Bilirubin Neonat Direct Bilirubin Neonat Indirect Bili AST ALT Alkaline Phosphatase Creatine Kinase CK-MB (CK-2) Troponin I < 0.012 NT-Pro-B Natriuret Pep Total Protein Albumin TSH Urine Color Urine Appearance Urine pH Ur Specific [place] Urine Protein Urine Glucose (UA) Urine Ketones Urine Blood Urine Nitrite Urine Bilirubin Urine Urobilinogen Ur Leukocyte Esterase Urine WBC (Auto) Urine RBC (Auto) Squamous Epi Cells Auto Urine Mucus (Auto) Urine Ascorbic Acid Urine Opiates Screen Urine Methadone Screen Ur Barbiturates Screen Ur Phencyclidine Scrn Ur Amphetamines Screen U Benzodiazepines Scrn Urine Cocaine Screen U Marijuana (THC) Screen 07/30/19 19:00 WBC RBC Hgb Hct MCV MCH MCHC RDW Plt Count Lymph % (Auto) [place] % (Auto) Eos % (Auto) Baso % (Auto) Absolute Neuts (auto) Absolute Lymphs (auto) Absolute Monos (auto) Absolute Eos (auto) Absolute Basos (auto) Seg Neutrophils % PT INR APTT 60.6 H D Carbonic Acid HCO3/H2CO3 Ratio ABG pH ABG pCO2 ABG pO2 ABG HCO3 ABG Total CO2 ABG O2 Saturation ABG Base Excess VBG pH VBG pCO2 VBG HCO3 VBG Base Excess FiO2 Sodium Potassium Chloride Carbon Dioxide Anion Gap BUN Creatinine Est GFR ( Amer) Est GFR (MDRD) Non-Af Glucose Hemoglobin A1c % Lactic Acid Calcium Phosphorus Magnesium Total Bilirubin Direct Bilirubin Neonat Total Bilirubin Neonat Direct Bilirubin Neonat Indirect Bili AST ALT Alkaline Phosphatase Creatine Kinase CK-MB (CK-2) Troponin I NT-Pro-B Natriuret Pep Total Protein Albumin TSH Urine Color Urine Appearance Urine pH Ur Specific [place] Urine Protein Urine Glucose (UA) Urine Ketones Urine Blood Urine Nitrite Urine Bilirubin Urine Urobilinogen Ur Leukocyte Esterase Urine WBC (Auto) Urine RBC (Auto) Squamous Epi Cells Auto Urine Mucus (Auto) Urine Ascorbic Acid Urine Opiates Screen Urine Methadone Screen Ur Barbiturates Screen Ur Phencyclidine Scrn Ur Amphetamines Screen U Benzodiazepines Scrn Urine Cocaine Screen U Marijuana (THC) Screen Chest CT 07/30/19 00:00 IMPRESSION: 1. Trace right pleural effusion with minimal right lower lobe ground-glass opacities, likely atelectasis although infectious/ inflammatory component not entirely excluded. 2. Cardiomegaly. 3. Moderate hiatal hernia. Chest X-Ray 07/30/19 06:51 IMPRESSION: 1. Bibasilar focal patchy areas increased parenchymal density, may be on the basis of infiltrate/atelectasis. 2. Borderline cardiomegaly, may be in part related to patient positioning. IMPRESSION/RECOMMENDATION: 1. Recent onset of atrial fibrillation with rapid ventricular response. Unable to control with multiple medications. Hence recommend continue the patient on amiodarone, with intermittent IV Lopressor 5 mg every 4 hours as needed. 2. Hypertension 3. Hypokalemia: Mild. Replace potassium. 4. Hiatal hernia/GERD. 5. Morbid obesity. Medications reviewed medication regimen and management plan discussed with courtroom clerk. 60 minutes spent on this patient with more than 50% of time spent under patient care. Will follow with the courtroom clerk.
[2019-07-30] MEDS ORDERED: AMIODARONE HCL INJ 150 MG/3 ML VIAL IV ONE (23:25)
[2019-07-30] MEDS ORDERED: AMIODARONE HCL 300 MG in DEXTROSE 5%-WATER 100 ML IV ONE (23:30)
[2019-07-31 06:02] LABS: ABSOLUTE BASOPHILS # (AUTO) 0.1 10^3/uL (0.0-0.2); ABSOLUTE LYMPHOCYTES (AUTO) 1.9 10^3/uL (0.5-4.7); ABSOLUTE MONOCYTES (AUTO) 0.9 10^3/uL (0.1-1.4); ABSOLUTE NEUT (AUTO) 4.6 10^3/uL (1.7-8.2); BASOPHILS % (AUTO) 0.8 % (0-2); EOSINOPHILS % (AUTO) 0.6 % (0-6); HEMATOCRIT 38.2 % (36.0-47.0); LYMPHOCYTES % (AUTO) 25.5 % (13-45); MEAN CORPUSCULAR HEMOGLOBIN 31.4 pg (27.0-33.4); MEAN CORPUSCULAR HGB CONC 34.1 g/dL (32.0-36.0); MEAN CORPUSCULAR VOLUME 92 fl (80-97); MONOCYTES % (AUTO) 11.4 % (3-13); PLATELET COUNT 205 10^3/uL (150-450); RED BLOOD COUNT 4.15 10^6/uL (3.72-5.28); RED CELL DISTRIBUTION WIDTH 14.2 % (11.5-14.0); SEGMENTED NEUTROPHILS % (AUTO) 61.7 % (42-78); TOTAL CELLS COUNTED % (AUTO) 100 %; WHITE BLOOD COUNT 7.5 10^3/uL (4.0-10.5)
[2019-07-31 06:16] LABS: PROTHROMBIN TIME 14.2 SEC (11.4-15.4)
[2019-07-31 06:17] LABS: PARTIAL THROMBOPLASTIN TIME 65.6 SEC (23.5-35.8)
[2019-07-31 06:22] LABS: ALBUMIN 3.6 g/dL (3.5-5.0); ALKALINE PHOSPHATASE 64 U/L (38-126); ANION GAP 9 (5-19); ASPARTATE AMINO TRANSFERASE 32 U/L (14-36); BILIRUBIN,DIRECT 0.1 mg/dL (0.0-0.4); BILIRUBIN,TOTAL 0.9 mg/dL (0.2-1.3); BLOOD UREA NITROGEN 8 mg/dL (7-20); CALCIUM 9.2 mg/dL (8.4-10.2); CARBON DIOXIDE 26 mmol/L (22-30); CHLORIDE 104 mmol/L (98-107); CHOLESTEROL 158.02 mg/dL (0-200); GLUCOSE 97 mg/dL (75-110); PHOSPHORUS 3.7 mg/dL (2.5-4.5); POTASSIUM 3.4 mmol/L (3.6-5.0); TOTAL PROTEIN 6.5 g/dL (6.3-8.2); TRIGLYCERIDES 84 mg/dL (<150)
[2019-07-31 06:33] LABS: DIRECT LDL 114 mg/dL (<100)
[2019-07-31] MEDS: HEPARIN SODIUM,PORCINE/D5W 25,000 UNIT/250 ML RTUINJ IV PRN (09:35)
[2019-07-31] MEDS: RINGERS SOLUTION,LACTATED 1,000 ML IV PRN (09:36)
[2019-07-31] MEDS ORDERED: POTASSIUM CHLORIDE 10 MEQ TABLET.ER PO ONE (10:36)
[2019-07-31] MEDS ORDERED: APIXABAN 5 MG TABLET PO SCH ×2 (10:45→22:00)
[2019-07-31] MEDS: METOPROLOL TARTRATE 25 MG TABLET PO SCH ×2 (11:12→22:33)
--- NOTE | 2019-07-31 19:00 | Progress Note ---
Provider Note Provider Note: CARDIOLOGY PROGRESS NOTE by Dr. Charlotte Carpenter on 07/31/2019. SUBJECTIVE: The patient feels much better. She is converted to sinus rhythm. She is off amiodarone and is on oral metoprolol. She denies any chest pain or discomfort. There is no PND orthopnea. The patient's heparin has been stopped and the patient has been started on Eliquis 5 mg p.o. twice daily. There is no bleeding on anticoagulation. There is no TIA CVA symptoms. The patient denies any chest pain or discomfort. There is no shortness of breath. There is no PND orthopnea or leg edema. There is no ventricular arrhythmia seen on the monitor. PHYSICAL EXAMINATION: The patient is morbidly obese. In no acute distress she is well-groomed. Selected Entries 07/31/19 07/31/19 07/31/19 12:00 12:04 12:05 Temperature 98.0 F Temperature Oral Source Heart Rate ( 75 Monitors) Respiratory 21 H Rate Blood Pressure 134/79 H Blood Pressure 97 Mean O2 Sat by Pulse 99 Oximetry Room air HEAD: Is atraumatic normocephalic. EYES: Pupils are equal round regular reactive to light and accommodation. There is no clinical pallor. There is no scleral icterus. External ocular movements are normal. EARS: Tympanic membranes are intact. External auditory canals are clear. NOSE: Nasal mucous membranes are not inflamed. There is no deviated nasal septum. MOUTH: Mucous membranes of mouth are moist. Tongue is moist. There is no ulcers. There is no bleeding from the gums. THROAT: There is no redness of the oropharynx. There is no exudates in the throat. SKIN: There is no petechia or ecchymosis. There is no skin rashes or skin lesions. NECK: Is supple. There is no JVD. Carotids are equal there is no bruits. There is no lymphadenopathy. There is no goiter. There is no accessory muscles of respiration in use. Trachea central. LUNGS: There is diminished air entry and prolonged expiration. On percussion there is hyperresonance. There is scattered rhonchi present. There is no rales or wheezing. There is no chest wall tenderness on palpation. HEA RT: S1-S2 is heard. S1 is of v all of normal intensity. There is no S3 gallop. There is no S4 gallop. There is systolic murmur left sternal border and the apex, without radiation. There is no murmur of aortic stenosis. . There is no aortic regurgitation murmur.. There is no rub. ABDOMEN: Is Nontender. There is no hepatosplenomegaly. Bowel sounds are well heard. EXTREMITIES: Femorals are deep. Femorals are slightly diminished. There is no femoral bruits. There is no pedal edema. There is no DVT or cellulitis. Leg pulses are diminished. There is no cyanosis or clubbing. Capillary refill is normal. There is no calf tenderness. POLICE SERVICE TECHNICIAN: The patient is conscious awake alert oriented x3 with no focal deficits. PSYCHIATRIC: The patient judgment and insight are intact her affect is normal. The patient's echo shows normal left ventricular ejection fraction. There is no wall motion abnormality. There is no significant valvular disease. Labs- All tests 24 hr 07/30/19 07/30/19 07/31/19 17:57 19:00 00:42 WBC RBC Hgb Hct MCV MCH MCHC RDW Plt Count Lymph % (Auto) Cross % (Auto) Eos % (Auto) Baso % (Auto) Absolute Neuts (auto) Absolute Lymphs (auto) Absolute Monos (auto) Absolute Eos (auto) Absolute Basos (auto) Seg Neutrophils % PT INR APTT 60.6 H D Sodium Potassium Chloride Carbon Dioxide Anion Gap BUN Creatinine Est GFR ( Amer) Est GFR (MDRD) Non-Af Glucose Calcium Phosphorus Magnesium Total Bilirubin Direct Bilirubin Neonat Total Bilirubin Neonat Direct Bilirubin Neonat Indirect Bili AST ALT Alkaline Phosphatase Troponin I < 0.012 < 0.012 NT-Pro-B Natriuret Pep Total Protein Albumin Triglycerides Cholesterol LDL Cholesterol Direct VLDL Cholesterol HDL Cholesterol 07/31/19 07/31/19 07/31/19 05:42 05:42 05:42 WBC 7.5 RBC 4.15 Hgb 13.0 Hct 38.2 MCV 92 MCH 31.4 MCHC 34.1 RDW 14.2 H Plt Count 205 Lymph % (Auto) 25.5 Cross % (Auto) 11.4 Eos % (Auto) 0.6 Baso % (Auto) 0.8 Absolute Neuts (auto) 4.6 Absolute Lymphs (auto) 1.9 Absolute Monos (auto) 0.9 Absolute Eos (auto) 0.0 Absolute Basos (auto) 0.1 Seg Neutrophils % 61.7 PT 14.2 INR 1.10 APTT 65.6 H Sodium 138.8 Potassium 3.4 L Chloride 104 Carbon Dioxide 26 Anion Gap 9 BUN 8 Creatinine 0.59 Est GFR ( Amer) > 60 Est GFR (MDRD) Non-Af > 60 Glucose 97 Calcium 9.2 Phosphorus 3.7 Magnesium 1.9 Total Bilirubin 0.9 Direct Bilirubin 0.1 Neonat Total Bilirubin Not Reportable Neonat Direct Bilirubin Not Reportable Neonat Indirect Bili Not Reportable AST 32 ALT 27 Alkaline Phosphatase 64 Troponin I NT-Pro-B Natriuret Pep Total Protein 6.5 Albumin 3.6 Triglycerides 84 Cholesterol 158.02 LDL Cholesterol Direct 114 H VLDL Cholesterol 17.0 HDL Cholesterol 34 L 07/31/19 05:42 WBC RBC Hgb Hct MCV MCH MCHC RDW Plt Count Lymph % (Auto) Cross % (Auto) Eos % (Auto) Baso % (Auto) Absolute Neuts (auto) Absolute Lymphs (auto) Absolute Monos (auto) Absolute Eos (auto) Absolute Basos (auto) Seg Neutrophils % PT INR APTT Sodium Potassium Chloride Carbon Dioxide Anion Gap BUN Creatinine Est GFR ( Amer) Est GFR (MDRD) Non-Af Glucose Calcium Phosphorus Magnesium Total Bilirubin Direct Bilirubin Neonat Total Bilirubin Neonat Direct Bilirubin Neonat Indirect Bili AST ALT Alkaline Phosphatase Troponin I NT-Pro-B Natriuret Pep 1690 H Total Protein Albumin Triglycerides Cholesterol LDL Cholesterol Direct VLDL Cholesterol HDL Cholesterol Chest CT 07/30/19 00:00 IMPRESSION: 1. Trace right pleural effusion with minimal right lower lobe ground-glass opacities, likely atelectasis although infectious/ inflammatory component not entirely excluded. 2. Cardiomegaly. 3. Moderate hiatal hernia. Chest X-Ray 07/30/19 06:51 IMPRESSION: 1. Bibasilar focal patchy areas increased parenchymal density, may be on the basis of infiltrate/atelectasis. 2. Borderline cardiomegaly, may be in part related to patient positioning. IMPRESSION/RECOMMENDATION: 1. Paroxysmal atrial fibrillation: Patient now in sinus rhythm. Continue beta- jessica and Eliquis. Will increase beta-jessica as tolerated. 2. Hypertension 3. Hypokalemia: Mild. Replace potassium. In view of the patient's hypertension and low potassium recheck the patient's serum aldosterone levels. 4. Hiatal hernia/GERD. 5. Morbid obesity. Medications reviewed. Medication regimen and management plan discussed with the attending physician. Medical decision making is of moderate to high complexity in view of the need to change medications. 640 minutes spent on this patient more than 50% of time spent direct patient care. Will follow.
--- NOTE | 2019-07-31 21:11 | PDOC CRITICAL CARE PROG REPORT ---
General Date:: 07/31/19 ICU Day:: 2 Ventilator Day:: 0 Hospital Day:: 2 Events in the past 12 to 24 Hours:: Patient's tachycardia was initially difficult to control but is now improved and she has a rate less than 100. She has no neurological complaints, she does have a slight headache which is typical for her and notable at this time of year. Review of systems relevant to events:: Nursing has not noted any fever hypotension or neurological deficits. She is tolerating diet. Reason for ICU Addmission:: Atrial fibrillation, rapid ventricular rate, shortness of breath - Medications: Medications reviewed and adjusted accordingly: Yes Vasopressors:: None Sedation:: None Physical Exam Vital Signs: Temp Pulse Resp BP Pulse Ox 98.1 F 102 H 24 H 152/92 H 94 07/31/19 20:27 07/31/19 20:27 07/31/19 20:27 07/31/19 20:27 07/31/19 20:27 Intake & Output 07/30/19 07/31/19 08/01/19 06:59 06:59 06:59 Intake Total 2055 1513 Output Total 1450 200 Balance 605 1313 Weight 115.666 kg 122.2 kg Weight/Height Weight 122.2 kg Height 5 ft 6 in General appearance: PRESENT: no acute distress, cooperative, morbidly obese Exam: Pleasant nontoxic ill 59-year-old black female no active distress awake alert oriented x3 Eye exam: PRESENT: conjunctiva pink, EOMI, PERRLA. ABSENT: conjunctival injection, scleral icterus Ear exam: PRESENT: normal external ear exam Mouth exam: PRESENT: moist, neck supple Teeth exam: ABSENT: edentulous, poor dentation Neck exam: ABSENT: carotid bruit, JVD, lymphadenopathy, thyromegaly Respiratory exam: PRESENT: clear to auscultation reina, unlabored. ABSENT: accessory muscle use, rales, rhonchi, wheezes Cardiovascular exam: PRESENT: irregular rhythm, +S1, +S2. ABSENT: tachycardia Pulses: PRESENT: normal dorsalis pedis pul Vascular exam: PRESENT: normal capillary refill. ABSENT: pallor GI/Abdominal exam: PRESENT: normal bowel sounds, soft. ABSENT: ascites, distended, guarding, mass, organolmegaly, rebound, tenderness Rectal exam: PRESENT: deferred Extremities exam: PRESENT: pedal edema. ABSENT: tenderness Musculoskeletal exam: ABSENT: deformity, dislocation Neurological exam: PRESENT: alert, awake, oriented to person, oriented to place, oriented to time, oriented to situation, CN II-XII grossly intact. ABSENT: motor sensory deficit Psychiatric exam: PRESENT: appropriate affect, normal mood. ABSENT: homicidal ideation, suicidal ideation Skin exam: PRESENT: dry, intact, warm. ABSENT: cyanosis, rash Tubes/Lines: ABSENT: Endotracheal Tube, Chest Tube, Central Line, Arterial Catheter, Dialysis catheter, Peg Tube, Nasogastic Tube, Other Laboratory/Radiographs Laboratory Results: 07/31/19 05:42 07/31/19 05:42 07/31/19 07/31/19 05:42 05:42 WBC 7.5 RBC 4.15 Hgb 13.0 Hct 38.2 MCV 92 MCH 31.4 MCHC 34.1 RDW 14.2 H Plt Count 205 Seg Neutrophils % 61.7 Sodium 138.8 Potassium 3.4 L Chloride 104 Carbon Dioxide 26 Anion Gap 9 BUN 8 Creatinine 0.59 Est GFR ( Amer) > 60 Glucose 97 Calcium 9.2 Phosphorus 3.7 Magnesium 1.9 Total Bilirubin 0.9 AST 32 Alkaline Phosphatase 64 Total Protein 6.5 Albumin 3.6 Triglycerides 84 Cholesterol 158.02 LDL Cholesterol Direct 114 H VLDL Cholesterol 17.0 HDL Cholesterol 34 L 07/30/19 07/30/19 07/30/19 06:40 06:40 06:40 Creatine Kinase 53 CK-MB (CK-2) 1.23 Troponin I < 0.012 NT-Pro-B Natriuret Pep 3780 H 07/30/19 07/30/19 07/31/19 11:30 17:57 00:42 Creatine Kinase CK-MB (CK-2) Troponin I < 0.012 < 0.012 < 0.012 NT-Pro-B Natriuret Pep 07/31/19 05:42 Creatine Kinase CK-MB (CK-2) Troponin I NT-Pro-B Natriuret Pep 1690 H Impressions: Chest CT 07/30/19 00:00 IMPRESSION: 1. Trace right pleural effusion with minimal right lower lobe ground-glass opacities, likely atelectasis although infectious/ inflammatory component not entirely excluded. 2. Cardiomegaly. 3. Moderate hiatal hernia. Chest X-Ray 07/30/19 06:51 IMPRESSION: 1. Bibasilar focal patchy areas increased parenchymal density, may be on the basis of infiltrate/atelectasis. 2. Borderline cardiomegaly, may be in part related to patient positioning. All labs, radiographs, diagnostic studies and EKGs were personally reviewed: Yes In addition, reports of radiographic and diagnostic studies were read: Yes Assessment and Plan - Diagnosis (1) Persistent atrial fibrillation with rapid ventricular response Is this a current diagnosis for this admission?: Yes Plan: Improved. Will start beta jessica at higher dose. Discontinue amiodarone. Discussed with Cardiology Will need anticoagulation with [id number] score of 2 (2) Paroxysmal atrial fibrillation with rapid ventricular response Is this a current diagnosis for this admission?: Yes (3) Atrial enlargement, bilateral Is this a current diagnosis for this admission?: Yes (4) Atrial fibrillation with rapid ventricular response Is this a current diagnosis for this admission?: Yes (5) Leukocytosis, unspecified Qualifiers: Leukocytosis type: leukemoid reaction Qualified Code(s): D72.823 - Leukemo id reaction Is this a current diagnosis for this admission?: Yes (6) Edema, lower extremity Is this a current diagnosis for this admission?: Yes Plan Summary: Patient has improved and her heart rate is now controlled. She still has persistent atrial fibrillation and will require anticoagulation. She initially refused this however we discussed the risk based on her chads score. Discussed the case with cardiology as well and they are in agreement with us restarting her beta-jessica at a higher dose and discontinuing the amiodarone Patient is suitable for downgrade from the ICU and have discussed this with Dr. Ramos, her PCP who is gladly accepted follow-up care. Of note patient has chronic lymphedema of the lower extremities. A CT scan of the abdomen and pelvis may be warranted Critical Time Critical Time (minutes): 0 - 9923 Level of Care: MEDICAL Anticipated discharge: Home Within: within 48 hours -: 1. The care of a critical patient is a dynamic process. This note is a merchandising representative synopsis but static in nature. The timeframe for treatments given in order is not necessary the actual time these treatments may have been done. 2. This patient requires critical care secondary to ongoing requirements for therapy not offered or safe outside the critical care environment. Transfer to a lower level of care with altered life or limb morbidity and mortality. 3. Multidisciplinary rounds completed. 4. ABCDE bundle addressed. 5. MPOA:
[2019-07-31] MEDS: APIXABAN 5 MG TABLET PO SCH (22:33)
[2019-07-31] MEDS ORDERED: CETIRIZINE 10 MG TABLET PO ONE (23:00)
[2019-07-31] MEDS ORDERED: DEXTROSE 50%-WATER SYRINGE 25 GM/50 ML DOSE IV PRN (23:30)
[2019-07-31] MEDS ORDERED: DEXTROSE 40% GEL 15 GM TUBE PO PRN (23:30)
[2019-07-31] MEDS ORDERED: GLUCAGON,HUMAN RECOMB 1 MG INJ IM PRN (23:30)
[2019-07-31] MEDS ORDERED: DEXTROSE 50%-WATER SYRINGE 12.5 GM/25 ML DOSE IV PRN (23:30)
[2019-07-31] MEDS ORDERED: DEXTROSE 40% GEL 15 GM TUBE X 2 PO PRN (23:30)
[2019-07-31] MEDS ORDERED: INSULIN LISPRO 100 UNIT/ML 3 ML VIAL SUBCUT ONE (23:30)
--- NOTE | 2019-08-01 00:34 | EKG REPORT ---
SEVERITY:- OTHERWISE NORMAL ECG - SINUS RHYTHM ATRIAL PREMATURE COMPLEX : Confirmed by: Charlotte Carpenter MD 01-Aug-2019 00:33:37
--- NOTE | 2019-08-01 00:34 | EKG REPORT ---
SEVERITY:- ABNORMAL ECG - SINUS RHYTHM PROBABLE ANTEROSEPTAL INFARCT, AGE INDETERM BORDERLINE T ABNORMALITIES, INFERIOR LEADS LATERAL LEADS ARE ALSO INVOLVED : Confirmed by: Charlotte Carpenter MD 01-Aug-2019 00:33:43
[2019-08-01 06:22] LABS: ABSOLUTE LYMPHOCYTES (AUTO) 1.6 10^3/uL (0.5-4.7); ABSOLUTE MONOCYTES (AUTO) 1.1 10^3/uL (0.1-1.4); ABSOLUTE NEUT (AUTO) 6.2 10^3/uL (1.7-8.2); BASOPHILS % (AUTO) 0.5 % (0-2); EOSINOPHILS % (AUTO) 0.4 % (0-6); HEMATOCRIT 34.2 % (36.0-47.0); HEMOGLOBIN 11.8 g/dL (12.0-15.5); MEAN CORPUSCULAR HEMOGLOBIN 31.4 pg (27.0-33.4); MEAN CORPUSCULAR HGB CONC 34.5 g/dL (32.0-36.0); MEAN CORPUSCULAR VOLUME 91 fl (80-97); MONOCYTES % (AUTO) 12.4 % (3-13); PLATELET COUNT 198 10^3/uL (150-450); RED BLOOD COUNT 3.75 10^6/uL (3.72-5.28); RED CELL DISTRIBUTION WIDTH 14.2 % (11.5-14.0); SEGMENTED NEUTROPHILS % (AUTO) 68.7 % (42-78); TOTAL CELLS COUNTED % (AUTO) 100 %; WHITE BLOOD COUNT 9.1 10^3/uL (4.0-10.5)
[2019-08-01 06:32] LABS: INTERNATIONAL RATION (INR) 1.49; PROTHROMBIN TIME 18.2 SEC (11.4-15.4)
[2019-08-01 06:43] LABS: PHOSPHORUS 3.8 mg/dL (2.5-4.5)
--- NOTE | 2019-08-01 06:53 | PDOC PROGRESS REPORT ---
Subjective Progress Note for:: 08/01/19 Subjective:: Patient was admitted for the atrial fibrillation with rapid ventricular response with refractory to the many medications in patients put in the ICU start on amiodarone drips and high dose of the beta-jessica and seen by Dr. GALINDO. Patient CT of the chest was no acute findings Patient's other blood work is all stable Patient's discontinues the amiodarone and Cipro to the ICU yesterday evening to the telemetry bed currently on a beta-jessica holding the heart rate below 100 without any problems Patient's denied any chest pain denied any shortness of the breath Patient has some nasal congestions and allergy symptoms Patient is denied any smoking no alcohol no substance drug abuse Patient denied history of any blood clot Patient have a history of the paroxysmal tachycardia seen by the [facility] Dr. GALINDO in 2013 have a stress test echo was done was all normal again seen by Dr. Cameron 2017 stress test echo was done Patient is otherwise very anxious to go home Reason For Visit: ATRIAL FIBRILLATION WITH RAPID VENTRICULAR RESPONS Physical Exam Vital Signs: Temp Pulse Resp BP Pulse Ox 98.4 F 89 24 H 139/76 H 97 08/01/19 03:42 08/01/19 03:42 08/01/19 03:42 08/01/19 03:42 08/01/19 03:42 Intake & Output 07/30/19 07/31/19 08/01/19 06:59 06:59 06:59 Intake Total 2055 1513 Output Total 1450 200 Balance 605 1313 Weight 115.666 kg 122.2 kg General appearance: PRESENT: no acute distress, well-developed, well-nourished Head exam: PRESENT: atraumatic, normocephalic Eye exam: PRESENT: conjunctiva pink, EOMI, PERRLA. ABSENT: scleral icterus Ear exam: PRESENT: normal external ear exam Mouth exam: PRESENT: moist, tongue midline Neck exam: PRESENT: full ROM. ABSENT: carotid bruit, JVD, lymphadenopathy, thyromegaly Respiratory exam: PRESENT: clear to auscultation reina Cardiovascular exam: PRESENT: RRR. ABSENT: diastolic murmur, rubs, systolic murmur Pulses: PRESENT: normal dorsalis pedis pul, +2 pedal pulses bilateral Vascular exam: PRESENT: normal capillary refill GI/Abdominal exam: PRESENT: normal bowel sounds, soft. ABSENT: distended, gu arding, mass, organolmegaly, rebound, tenderness Rectal exam: PRESENT: deferred Neurological exam: PRESENT: alert, awake, oriented to person, oriented to place, oriented to time, oriented to situation, CN II-XII grossly intact. ABSENT: motor sensory deficit Psychiatric exam: PRESENT: appropriate affect, normal mood. ABSENT: homicidal ideation, suicidal ideation Skin exam: PRESENT: dry, intact, warm. ABSENT: cyanosis, rash Results Laboratory Results: 08/01/19 05:12 08/01/19 08/01/19 05:12 05:12 WBC 9.1 RBC 3.75 Hgb 11.8 L Hct 34.2 L MCV 91 MCH 31.4 MCHC 34.5 RDW 14.2 H Plt Count 198 Seg Neutrophils % 68.7 Phosphorus 3.8 Magnesium 1.8 07/30/19 07/30/19 07/30/19 06:40 06:40 06:40 Creatine Kinase 53 CK-MB (CK-2) 1.23 Troponin I < 0.012 NT-Pro-B Natriuret Pep 3780 H 07/30/19 07/30/19 07/31/19 11:30 17:57 00:42 Creatine Kinase CK-MB (CK-2) Troponin I < 0.012 < 0.012 < 0.012 NT-Pro-B Natriuret Pep 07/31/19 05:42 Creatine Kinase CK-MB (CK-2) Troponin I NT-Pro-B Natriuret Pep 1690 H Impressions: Chest CT 07/30/19 00:00 IMPRESSION: 1. Trace right pleural effusion with minimal right lower lobe ground-glass opacities, likely atelectasis although infectious/ inflammatory component not entirely excluded. 2. Cardiomegaly. 3. Moderate hiatal hernia. Chest X-Ray 07/30/19 06:51 IMPRESSION: 1. Bibasilar focal patchy areas increased parenchymal density, may be on the basis of infiltrate/atelectasis. 2. Borderline cardiomegaly, may be in part related to patient positioning. 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 Cameron follow with the cardiology Dr. GALINDO (3) Edema, lower extremity Is this a current diagnosis for this admission?: Yes Plan: We will get the CT abdomen and pelvis most likely chronic lymphedema as per discussed with the patient will also get ultrasound for the lower extremity (4) Impaired fasting glucose Is this a current diagnosis for this admission?: Yes Plan: This is a low-carb diet - Time Time Spent with patient: 15-24 minutes Level of Care: IMCU Medications reviewed and adjusted accordingly: Yes Anticipated discharge: Home Within: within 24 hours - Inpatient Certification Based on my medical assessment, after consideration of the patient's comorbidities, presenting symptoms, or acuity I expect that the services needed warrant INPATIENT care.: Yes I certify that my determination is in accordance with my understanding of Medicare's requirements for reasonable and necessary INPATIENT services [42 CFR 412.3e].: Yes Post Hospital Care: D/C Evaluation Analyst Documentation - Plan Summary Plan Summary: Get the lower extremity ultrasound CT abdomen and pelvis Physical therapy evaluations Follow-up with the cardiology for echocardiograms Patient is remained stable next 24 hours with the walking the heart rate stable discharge home we will discuss with the cardiology about further EP study
[2019-08-01 07:08] LABS: ANION GAP 9 (5-19); BLOOD UREA NITROGEN 6 mg/dL (7-20); CALCIUM 9.2 mg/dL (8.4-10.2); CARBON DIOXIDE 25 mmol/L (22-30); CHLORIDE 104 mmol/L (98-107); GLUCOSE 91 mg/dL (75-110); POTASSIUM 3.9 mmol/L (3.6-5.0)
[2019-08-01] MEDS: INSULIN LISPRO 100 UNIT/ML 3 ML VIAL SUBCUT SCH ×4 (07:45→22:11)
--- NOTE | 2019-08-01 09:01 | RADIOLOGY REPORT (SQ) ---
EXAM DESCRIPTION: CT ABD/PELVIS NO ORAL OR IV COMPLETED DATE/TIME: 08/01/2019 8:06 am REASON FOR STUDY: chronic edema leg/abd distention COMPARISON: CT of the chest with contrast from 07/30/2019. TECHNIQUE: CT scan of the abdomen and pelvis performed without intravenous or oral contrast. Images reviewed with lung, soft tissue, and bone windows. Reconstructed coronal and sagittal MPR images revi ewed. All images stored on PACS. All CT scanners at this facility use dose modulation, iterative reconstruction, and/or weight based d osing when appropriate to reduce radiation dose to as low as reasonably achievable (ALARA). [facility]: Dose Right [facility]: CareDose [facility]: Dose Right [facility]: Teradose 4D [facility]: [employer] RADIATION DOSE: CT Rad equipment meets quality standard of care and radiation dose reduction techniq ues were employed. CTDIvol: 29.4 mGy. DLP: 1597 mGy-cm.mGy. LIMITATIONS: None. FINDINGS: LOWER CHEST: Bilateral pleural effusions that have increased in size from 07/30/2019. Mode rate hiatal hernia NON-CONTRASTED LIVER, SPLEEN, ADRENALS: Evaluation is limited due to the absence of intravenous contr ast. The morphology of the liver is non cirrhotic. The low attenuation of hepatic parenchyma is sug gestive of hepatic steatosis. The spleen is normal in size. There are several accessory splenules a nterior and medial to the spleen. The nodular enlargement of the left adrenal gland is nonspecific a nd could represent adenomatous hyperplasia. There is no adrenal mass. PANCREAS: No acute abnormality. GALLBLADDER: The high attenuation within the gallbladder lumen could represent vicarious excretion of contrast or a combination of sludge/ cholelithiasis. There is no associated gallbladder wall thicke john, pericholecystic fluid, or biliary ductal dilatation. RIGHT KIDNEY AND URETER: Evaluation is limited due to the absence of intravenous contrast. There is no hydronephrosis, nephrolithiasis, hydroureter or ureterolithiasis. LEFT KIDNEY AND URETER: Evaluation is limited due to the absence of intravenous contrast. There is n o hydronephrosis, nephrolithiasis, hydroureter or ureterolithiasis. AORTA AND RETROPERITONEUM: No aneurysm of the abdominal aorta. No retroperitoneal adenopathy, hemorr daisy or mass. BOWEL AND PERITONEAL CAVITY: Colonic diverticulosis without diverticulitis. There is no bowel obstru ction, bowel wall thickening, or pericolonic/ perienteric inflammation. There is no mesenteric adeno carole or mesenteric/ peritoneal mass. APPENDIX: Normal. PELVIS, BLADDER, AND ABDOMINAL WALL:Fibroid uterus. The urinary bladder is normal in size. There is diastasis of the rectus sheath and a fat containing umbilical hernia. BONES: No acute findings. OTHER: Mild anasarca. IMPRESSION: 1. No acute intra-abdominal abnormality. 2. Other secondary findings including a moderate hiatal hernia, colonic diverticulosis without diver ticulitis, mild anasarca and probable hepatic steatosis. COMMENT: Quality ID # [id number]: Final reports with documentation of one or more dose reduction techniques (e.g., Automated exposure control, adjustment of the mA and/or kV according to patient size, use of iterative reconstruction technique) TECHNICAL DOCUMENTATION: JOB ID: [id number] [employer]- All Rights Reserved Reading location - IP/workstation name: [email or web address]
[2019-08-01] MEDS: METOPROLOL TARTRATE 25 MG TABLET PO SCH (09:44)
[2019-08-01] MEDS: APIXABAN 5 MG TABLET PO SCH ×2 (09:44→22:08)
[2019-08-01] MEDS: FLUTICASONE NASAL SPRAY 50 MCG/SPRY 120 SPRAY/16 GM NASL SCH (09:44)
[2019-08-01] MEDS: CETIRIZINE 10 MG TABLET PO SCH (09:44)
[2019-08-01] MEDS: ACETAMINOPHEN 325 MG TABLET PO PRN (09:45)
[2019-08-01] MEDS ORDERED: METOPROLOL TARTRATE 25 MG TABLET PO ONE (11:00)
[2019-08-01] MEDS ORDERED: FUROSEMIDE 40 MG TABLET PO ONE (11:39)
[2019-08-01] MEDS ORDERED: POTASSIUM CHLORIDE 10 MEQ TABLET.ER PO ONE (11:39)
--- NOTE | 2019-08-01 11:39 | Progress Note ---
Provider Note Provider Note: Cardiology PROGRESS NOTE by Dr. Charlotte Hu on 08/01/2019. SUBJECTIVE: The patient denies chest pain or discomfort. There is no shortness of breath. She states that she intermittently has some wheezing without shortness of breath. There is no bleeding on Eliquis. The patient remains in sinus rhythm. She is on metoprolol will increase the metoprolol. If the patient has recurrence of atrial fibrillation then we will place the patient back on amiodarone intravenously. There is no TIA CVA symptoms. There is no ventricular arrhythmia seen on the monitor. The patient's CT scan shows a pleural effusion. The patient did receive a lot of IV fluids. Hence we will give the patient's Lasix and potassium for 1 dose. PHYSICAL EXAMINATION: The patient morbidly obese. In no acute distress. She is well-groomed. Selected Entries 08/01/19 12:31 Temperature 98.2 F Temperature Oral Source Pulse Rate 88 Respiratory 15 Rate Blood Pressure 133/85 H Blood Pressure 101 Mean BP Location Right Arm BP Position Supine O2 Sat by Pulse 100 Oximetry Oxygen Delivery Room Air Method HEAD: Is atraumatic normocephalic. EYES: Pupils are equal round regular reactive to light and accommodation. There is no clinical pallor. There is no scleral icterus. External ocular movements are normal. EARS: Tympanic membranes are intact. External auditory canals are clear. NOSE: Nasal mucous membranes are not inflamed. There is no deviated nasal septum. MOUTH: Mucous membranes of mouth are moist. Tongue is moist. There is no ulcers. There is no bleeding from the gums. THROAT: There is no redness of the oropharynx. There is no exudates in the throat. SKIN: There is no petechia or ecchymosis. There is no skin rashes or skin lesions. NECK: Is supple. There is no JVD. Carotids are equal there is no bruits. There is no lymphadenopathy. There is no goiter. There is no accessory muscles of respiration in use. Trachea central. LUNGS: There is diminished air entry and prolonged expiration. On percussion there is hyperresonance. There is scattered rhonchi present. There is no rales or wheezing. There is no chest wall tenderness on palpation. HEART: S1-S2 is heard. S1 is of v all of normal intensity. There is no S3 gallop. There is no S4 gallop. There is systolic murmur left sternal border and the apex, without radiation. There is no murmur of aortic stenosis. . There is no aortic regurgitation murmur.. There is no rub. ABDOMEN: Is Nontender. There is no hepatosplenomegaly. Bowel sounds are well heard. EXTREMITIES: Femorals are deep. Femorals are slightly diminished. There is no femoral bruits. There is no pedal edema. There is no DVT or cellulitis. Leg pulses are diminished. There is no cyanosis or clubbing. Capillary refill is normal. There is no calf tenderness. 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 PSYCHIATRIC: The patient judgment and insight are intact her affect is normal. Labs- All tests 24 hr 08/01/19 08/01/19 08/01/19 05:12 05:12 05:12 WBC 9.1 RBC 3.75 Hgb 11.8 L Hct 34.2 L MCV 91 MCH 31.4 MCHC 34.5 RDW 14.2 H Plt Count 198 Lymph % (Auto) 18.0 [place] % (Auto) 12.4 Eos % (Auto) 0.4 Baso % (Auto) 0.5 Absolute Neuts (auto) 6.2 Absolute Lymphs (auto) 1.6 Absolute Monos (auto) 1.1 Absolute Eos (auto) 0.0 Absolute Basos (auto) 0.0 Seg Neutrophils % 68.7 PT 18.2 H INR 1.49 Sodium Potassium Chloride Carbon Dioxide Anion Gap BUN Creatinine Est GFR ( Amer) Est GFR (MDRD) Non-Af Glucose Calcium Phosphorus 3.8 Magnesium 1.8 08/01/19 05:12 WBC RBC Hgb Hct MCV MCH MCHC RDW Plt Count Lymph % (Auto) [place] % (Auto) Eos % (Auto) Baso % (Auto) Absolute Neuts (auto) Absolute Lymphs (auto) Absolute Monos (auto) Absolute Eos (auto) Absolute Basos (auto) Seg Neutrophils % PT INR Sodium 137.9 Potassium 3.9 Chloride 104 Carbon Dioxide 25 Anion Gap 9 BUN 6 L Creatinine 0.59 Est GFR ( Amer) > 60 Est GFR (MDRD) Non-Af > 60 Glucose 91 Calcium 9.[address] 07/30/19 00:00 IMPRESSION: 1. Trace right pleural effusion with minimal right lower lobe ground-glass opacities, likely atelectasis although infectious/ inflammatory component not entirely excluded. 2. Cardiomegaly. 3. Moderate hiatal hernia. Chest X-Ray 07/30/19 06:51 IMPRESSION: 1. Bibasilar focal patchy areas increased parenchymal density, may be on the basis of infiltrate/atelectasis. 2. Borderline cardiomegaly, may be in part related to patient positioning. Abdomen/Pelvis CT 08/01/19 00:00 IMPRESSION: 1. No acute intra-abdominal abnormality. 2. Other secondary findings including a moderate hiatal hernia, colonic diverticulosis without diverticulitis, mild anasarca and probable hepatic steatosis. Echocardiogram: The patient has severe pulmonary hypertension. Hence will proceed with collagen vascular disease work-up IMPRESSION/RECOMMENDATION: 1. Paroxysmal atrial fibrillation: Patient now in sinus rhythm. Continue beta- jessica and Eliquis. Will increase beta-jessica as tolerated. 2. Hypertension 3. Severe pulmonary hypertension: We will stop the patient's Lopressor and start the patient on Cardizem. We will start a collagen vascular disease work- up 4. Hypokalemia: Mild. Replace potassium. In view of the patient's hy pertension and low potassium recheck the patient's serum aldosterone levels. 5. Hiatal hernia/GERD. 5. Morbid obesity. Medications reviewed. Management plan and medical regimen discussed with attending provider on the case. Medical decision making is of high complexity. 40 minutes spent on this patient more than 50% of time spent in direct patient care. Will follow.
--- NOTE | 2019-08-01 11:44 | EKG REPORT ---
SEVERITY:- BORDERLINE ECG - LOW VOLTAGE IN FRONTAL LEADS SINUS RHYTHM WITH PAC's. : Confirmed by: Charlotte Carpenter MD 01-Aug-2019 11:43:38
[2019-08-01] MEDS: DEXTROSE 5%-WATER 500 ML with AMIODARONE HCL 900 MG IV PRN ×4 (16:11→21:30)
[2019-08-01] MEDS ORDERED: METOPROLOL TARTRATE PF/INJ 5 MG/5 ML SDV IV ONE (18:45)
[2019-08-01] MEDS ORDERED: METOPROLOL TARTRATE 25 MG TABLET PO SCH (22:00)
[2019-08-01] MEDS ORDERED: DILTIAZEM HCL 30 MG TABLET PO ONE (22:00)
--- NOTE | 2019-08-02 00:16 | XCELERA REPORT ---
[address] [address] Transthoracic Echocardiogram Report Name: DEANGELO PETERSON Age: 59 yrs Gender: Female : 1960 Patient Status: Inpatient Patient Location: ICU^611^A Study Date: 07/31/2019 03:39 PM Height: 66 in Weight: 269 lb BSA: 2.3 m2 Procedure: A two-dimensional transthoracic echocardiogram with color flow and Doppler was performed. Study Quality: Fair. Reason For Study: atrial fibrillation, pulmonary hypertension History: atrial fibrillation, pulmonary hypertension. Ordering Physician: NEHEMIAH AMOR Performed By: Kimberlyn Dai Interpretation Summary The left ventricle is normal in size. There is normal left ventricular wall thickness. LV EF is 60% Left ventricular systolic function is normal. The left ventricular wall motion is normal. There is no thrombus. No defenite ASD,VSD,or PFO seen. Not well seen,but suspect mild RV enlargemEnt. The right atrium is borderline dilated. The left atrium is mildly dilated. There is no evidence of mitral valve prolapse. There is no vegetation seen on the mitral valve. There is no mitral valve stenosis. There is a mild amount of mitral regurgitation There is no aortic valvular vegetation. There is no aortic valve stenosis There is no LVOT obstruction. No aortic regurgitation is present. There is no tricuspid stenosis. There is a moderate amount of tricuspid regurgitation There is servere pulmonary hypertension by echo RVS is 62 to 67 mm of Hg , with RA mean of 5 to 10. There is no pulmonic valvular stenosis. There is no pulmonic valvular regurgitation. The aortic root is normal size. The inferior vena cava appeared normal and decreased > 50% with respiration (RAP 5-10 mmHg) Very small effusion behind the RA,No tamponade. MMode/2D Measurements & Calculations RVDd: 2.8 cm LVIDd: 4.9 cm FS: 31.9 % Ao root diam: 2.9 cm IVSd: 1.0 cm LVIDs: 3.3 cm EDV(Teich): 111.4 ml Ao root area: 6.4 cm2 LVPWd: 0.96 cm ESV(Teich): 44.7 ml LA dimension: 4.2 cm EF(Teich): 59.9 % Doppler Measurements & Calculations MV E max linda: MV P1/2t max linda: Ao V2 max: LV V1 max P.8 cm/sec 94.3 cm/sec 98.9 cm/sec 3.8 mmHg MV A max linda: MV P1/2t: 46.1 msec Ao max P.9 mmHg LV V1 max: 40.0 cm/sec MVA(P1/2t): 4.8 cm2 97.2 cm/sec MV E/A: 2.4 MV dec slope: 599.0 cm/sec2 MV dec time: 0.14 sec PA V2 max: TR max linda: MV P1/2t-pr_phl: 85.9 cm/sec 376.4 cm/sec 46.1 msec PA max P.0 mmHgTR max P.7 mmHg Left Ventricle The left ventricle is normal in size. There is normal left ventricular wall thickness. LV EF is 60%. Left ventricular systolic function is normal. LV diastolic function could not be adequately assessed due to atrial fibrilation. The left ventricular wall motion is normal. There is no thrombus. No defenite ASD,VSD,or PFO seen. Right Ventricle Not well seen,but suspect mild RV enlargemEnt. Atria The right atrium is borderline dilated. The left atrium is mildly dilated. Mitral Valve There is no evidence of mitral valve prolapse. There is no vegetation seen on the mitral valve. There is no mitral valve stenosis. There is a mild amount of mitral regurgitation. Aortic Valve There is no aortic valvular vegetation. There is no aortic valve stenosis. There is no LVOT obstruction. No aortic regurgitation is present. Tricuspid Valve There is no tricuspid stenosis. There is a moderate amount of tricuspid regurgitation. There is servere pulmonary hypertension by echo. RVS is 62 to 67 mm of Hg , with RA mean of 5 to 10. Pulmonic Valve There is no pulmonic valvular stenosis. There is no pulmonic valvular regurgitation. Great Vessels The aortic root is normal size. The inferior vena cava appeared normal and decreased > 50% with respiration (RAP 5-10 mmHg). Effusions Very small effusion behind the RA,No tamponade. : NEHEMIAH AMOR Lakshmi
--- NOTE | 2019-08-02 01:02 | RADIOLOGY REPORT (SQ) ---
CLINICAL HISTORY: edema lower ext COMPARISON: None. 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 Visualized calf veins are patent. IMPRESSION: No DVT.
[2019-08-02 05:59] LABS: ABSOLUTE EOSINOPHILS # (AUTO) 0.1 10^3/uL (0.0-0.6); ABSOLUTE LYMPHOCYTES (AUTO) 1.8 10^3/uL (0.5-4.7); ABSOLUTE MONOCYTES (AUTO) 1.4 10^3/uL (0.1-1.4); ABSOLUTE NEUT (AUTO) 6.2 10^3/uL (1.7-8.2); BASOPHILS % (AUTO) 0.4 % (0-2); EOSINOPHILS % (AUTO) 0.5 % (0-6); HEMATOCRIT 33.1 % (36.0-47.0); HEMOGLOBIN 11.3 g/dL (12.0-15.5); LYMPHOCYTES % (AUTO) 19.4 % (13-45); MEAN CORPUSCULAR HEMOGLOBIN 31.2 pg (27.0-33.4); MEAN CORPUSCULAR VOLUME 92 fl (80-97); MONOCYTES % (AUTO) 14.5 % (3-13); PLATELET COUNT 200 10^3/uL (150-450); RED BLOOD COUNT 3.62 10^6/uL (3.72-5.28); RED CELL DISTRIBUTION WIDTH 14.4 % (11.5-14.0); SEGMENTED NEUTROPHILS % (AUTO) 65.2 % (42-78); TOTAL CELLS COUNTED % (AUTO) 100 %; WHITE BLOOD COUNT 9.5 10^3/uL (4.0-10.5)
[2019-08-02 06:07] LABS: INTERNATIONAL RATION (INR) 1.53; PROTHROMBIN TIME 18.5 SEC (11.4-15.4)
[2019-08-02 06:08] LABS: PARTIAL THROMBOPLASTIN TIME 36.4 SEC (23.5-35.8)
[2019-08-02 06:24] LABS: PHOSPHORUS 3.4 mg/dL (2.5-4.5)
[2019-08-02 06:32] LABS: ERYTHROCYTE SEDIMENTATION RATE 33 mm/hr (0-30)
--- NOTE | 2019-08-02 08:35 | PDOC PROGRESS REPORT ---
Subjective Progress Note for:: 08/02/19 Subjective:: Patient is currently doing fair Since heart rate goes up yesterday required amiodarone drip Also received the Cardizem Patient's echocardiogram suggested severe pulmonary hypertension's Patient's venous Doppler lower extremities negative I think swelling most likely from the pulmonary hypertension's Patient CT abdomen pelvis is negative for any acute finding Patient is denied any chest pain no short of breath Patient's CT chest was no acute finding Is already on Eliquis right now Patient had a sleep study done last year was negative Reason For Visit: ATRIAL FIBRILLATION WITH RAPID VENTRICULAR RESPONS Physical Exam Vital Signs: Temp Pulse Resp BP Pulse Ox 98.7 F 83 16 118/65 95 08/02/19 07:13 08/02/19 07:13 08/02/19 07:13 08/02/19 07:13 08/02/19 07:13 Intake & Output 08/01/19 08/02/19 08/03/19 06:59 06:59 06:59 Intake Total 1513 677 Output Total 200 Balance 1313 677 Weight 121.5 kg 121.7 kg General appearance: PRESENT: no acute distress, well-developed, well-nourished Head exam: PRESENT: atraumatic, normocephalic Eye exam: PRESENT: conjunctiva pink, EOMI, PERRLA. ABSENT: scleral icterus Ear exam: PRESENT: normal external ear exam Mouth exam: PRESENT: moist, tongue midline Neck exam: PRESENT: full ROM. ABSENT: carotid bruit, JVD, lymphadenopathy, thyromegaly Respiratory exam: PRESENT: clear to auscultation reina Cardiovascular exam: PRESENT: RRR. ABSENT: diastolic murmur, rubs, systolic murmur Pulses: PRESENT: normal dorsalis pedis pul, +2 pedal pulses bilateral Vascular exam: PRESENT: normal capillary refill GI/Abdominal exam: PRESENT: normal bowel sounds, soft. ABSENT: distended, guarding, mass, organolmegaly, rebound, tenderness Rectal exam: PRESENT: deferred Musculoskeletal exam: PRESENT: ambulatory Neurological exam: PRESENT: alert, awake, oriented to person, oriented to place, oriented to time, oriented to situation, CN II-XII grossly intact. ABSENT: motor sensory deficit Psychiatric exam: PRESENT: appropriate affect, normal mood. ABSENT: homicidal ideation, suicidal ideation Skin exam: PRESENT: dry, intact, warm. ABSENT: cyanosis, rash Results Laboratory Results: 08/02/19 05:03 08/01/19 05:12 08/02/19 08/02/19 05:03 05:03 WBC 9.5 RBC 3.62 L Hgb 11.3 L Hct 33.1 L MCV 92 MCH 31.2 MCHC 34.0 RDW 14.4 H Plt Count 200 Seg Neutrophils % 65.2 Phosphorus 3.4 Magnesium 1.8 C-Reactive Protein 43.0 H 07/30/19 07/30/19 07/30/19 06:40 06:40 06:40 Creatine Kinase 53 CK-MB (CK-2) 1.23 Troponin I < 0.012 NT-Pro-B Natriuret Pep 3780 H 07/30/19 07/30/19 07/31/19 11:30 17:57 00:42 Creatine Kinase CK-MB (CK-2) Troponin I < 0.012 < 0.012 < 0.012 NT-Pro-B Natriuret Pep 07/31/19 05:42 Creatine Kinase CK-MB (CK-2) Troponin I NT-Pro-B Natriuret Pep 1690 H Impressions: Chest CT 07/30/19 00:00 IMPRESSION: 1. Trace right pleural effusion with minimal right lower lobe ground-glass opacities, likely atelectasis although infectious/ inflammatory component not entirely excluded. 2. Cardiomegaly. 3. Moderate hiatal hernia. Chest X-Ray 07/30/19 06:51 IMPRESSION: 1. Bibasilar focal patchy areas increased parenchymal density, may be on the basis of infiltrate/atelectasis. 2. Borderline cardiomegaly, may be in part related to patient positioning. Abdomen/Pelvis CT 08/01/19 00:00 IMPRESSION: 1. No acute intra-abdominal abnormality. 2. Other secondary findings including a moderate hiatal hernia, colonic diverticulosis without diverticulitis, mild anasarca and probable hepatic steatosis. Venous Doppler Study 08/01/19 00:00 IMPRESSION: No DVT. Assessment & Plan - Diagnosis (1) Atrial fibrillation with rapid ventricular response Is this a current diagnosis for this admission?: Yes Plan: Currently on a amiodarone drip Dr. GALINDO is going to start the Cardizem (2) Atrial enlargement, bilateral Is this a current diagnosis for this admission?: Yes Plan: Currently echocardiogram suggest the pulmonary hypertension's (3) Edema, lower extremity Is this a current diagnosis for this admission?: Yes Plan: Likely due to the pulmonary hypertension's (4) Impaired fasting glucose Is this a current diagnosis for this admission?: Yes Plan: This is a low-carb diet (5) Severe pulmonary arterial systolic hypertension Is this a current diagnosis for this admission?: Yes Plan: Follow-up with the cardiology may be a get a benefit to do the pulmonary hypertension's clinic patient is already on Eliquis - Time Time Spent with patient: 25-34 minutes Level of Care: IMCU Medications reviewed and adjusted accordingly: Yes Anticipated discharge: Home with Homehealth Within: Other - Plan Summary Plan Summary: Continues to current medicationsDiscussed with the patient about the all the test report discussed with the coordinate care with the Dr. Carpenter and the nursing staff
[2019-08-02] MEDS: INSULIN LISPRO 100 UNIT/ML 3 ML VIAL SUBCUT SCH ×3 (08:36→21:00)
[2019-08-02] MEDS: APIXABAN 5 MG TABLET PO SCH ×2 (09:04→21:09)
[2019-08-02] MEDS: CETIRIZINE 10 MG TABLET PO SCH (09:04)
[2019-08-02] MEDS: FLUTICASONE NASAL SPRAY 50 MCG/SPRY 120 SPRAY/16 GM NASL SCH (09:04)
[2019-08-02] MEDS: DILTIAZEM HCL 120 MG CAP.SR.24H PO SCH ×2 (09:08→21:08)
[2019-08-02] MEDS ORDERED: METOPROLOL TARTRATE 25 MG TABLET PO SCH (10:00)
[2019-08-02] MEDS: DILTIAZEM HCL/D5W 125 MG/125 ML RTUINJ IV PRN ×2 (10:00→19:58)
[2019-08-02] MEDS ORDERED: DILTIAZEM HCL INJ 25 MG/5 ML VIAL ONE (10:01)
[2019-08-02] MEDS ORDERED: DILTIAZEM HCL/D5W 125 MG/125 ML RTUINJ IV ONE (10:55)
[2019-08-02] MEDS: ACETAMINOPHEN 325 MG TABLET PO PRN (11:12)
[2019-08-02] MEDS: DEXTROSE 5%-WATER 500 ML with AMIODARONE HCL 900 MG IV PRN ×2 (11:30)
[2019-08-02] MEDS ORDERED: DIGOXIN INJ 0.5 MG/2 ML AMPULE ONE (12:42)
[2019-08-02] MEDS ORDERED: METOPROLOL TARTRATE PF/INJ 5 MG/5 ML SDV IV ONE (16:00)
--- NOTE | 2019-08-02 16:40 | RADIOLOGY REPORT (SQ) ---
EXAM DESCRIPTION: CTA CHEST COMPLETED DATE/TIME: 08/02/2019 4:03 pm REASON FOR STUDY: chest pain/sob COMPARISON: Two-view chest 08/06/2011 CT chest 07/30/2019 TECHNIQUE: CT scan of the chest performed using helical scanning technique with dynamic intravenous contrast injection. Images reviewed with lung, soft tissue and bone windows. Reconstructed coronal and sagittal MPR images reviewed. Additional 3 dimensional post-processing performed to develop Maximal Intensity Projection images (VT P). All images stored on PACS. All CT scanners at this facility use dose modulation, iterative reconstruction, and/or weight based d osing when appropriate to reduce radiation dose to as low as reasonably achievable (ALARA). [facility]: Dose Right [facility]: CareDose [facility]: Dose Right [facility]: Teradose 4D [facility]: [place] CONTRAST TYPE AND DOSE: contrast/concentration: Isovue 350.00 mg/ml; Total Contrast Delivered: 66.0 ml; Total Saline Delivered: 55.0 ml Contrast bolus optimized for the pulmonary arteries. Not diagnostic for the aorta. RENAL FUNCTION: Creatinine 0.6 RADIATION DOSE: CT Rad equipment meets quality standard of care and radiation dose reduction techniq ues were employed. CTDIvol: 15.6 - 18.8 mGy. DLP: 645 mGy-cm. . LIMITATIONS: None. FINDINGS: LUNGS AND PLEURA: In the medial aspect left upper lobe axial image 23/, at 2 x 1.5 x 2 c m bulla or bleb is present with debris. This has a thin barely perceptible wall. This likely repre sents a benign postinflammatory finding. No focal acute infiltrates. There are trace bilateral pleural effusions with dependent atelectasis in the right and left lower lo bes. This is increased compared to 07/30/2019. AORTA AND GREAT VESSELS: No aneurysm. Contrast bolus not optimized for the aorta. HEART: No pericardial effusion. No significant coronary artery calcifications. PULMONARY ARTERIES: No emboli visualized in the main pulmonary arteries or the segmental branches. HILAR AND MEDIASTINAL STRUCTURES: No identified masses or abnormal nodes. HARDWARE: None in the chest. UPPER ABDOMEN: There is a moderate size retrocardiac hiatal hernia containing the stomach fundus an G E junction. THYROID AND OTHER SOFT TISSUES: No masses. No adenopathy. BONES: No acute or significant finding. 3D MIPS: Confirm above findings. OTHER: No other significant finding. IMPRESSION: No CT angio evidence of acute pulmonary emboli. Trace bilateral pleural effusions with bibasilar atelectasis. Probably benign postinflammatory thin walled cavity with debris in the medial left upper lobe COMMENT: Quality ID # [id number]: Final reports with documentation of one or more dose reduction techniques (e.g., Automated exposure control, adjustment of the mA and/or kV according to patient size, use of iterative reconstruction technique) TECHNICAL DOCUMENTATION: JOB ID: [id number] [employer]- All Rights Reserved Reading location - IP/workstation name: [email or web address]-
--- NOTE | 2019-08-02 19:13 | EKG REPORT ---
SEVERITY:- ABNORMAL ECG - A-FLUTTER W/ PREDOM 2:1 AV BLOCK, A-RATE 294 NONSPECIFIC REPOL ABNORMALITY, DIFFUSE LEADS : Confirmed by: Charlotte Carpenter MD 02-Aug-2019 19:12:39
--- NOTE | 2019-08-02 19:22 | Progress Note ---
Provider Note Provider Note: CARDIOLOGY PROGRESS NOTE by Dr. Charlotte Hu on 08/02/2019. SUBJECTIVE: Since the patient remained in sinus rhythm the patient's amiodarone drip was discontinued and the patient was placed on Cardizem CD 120 mg p.o. every 12 hours. Subsequently patient went back into atrial fibrillation with rapid ventricular response and which continued to be uncontrolled even with a maximum dose of 15 mg of Cardizem infusion per hour. Hence the patient's amiodarone has been restarted. The patient denies any chest pain or discomfort. Her CT scan does not show any infection but shows a cavity with postinflammatory changes. Hence after discussion with the attending provider Dr. Ramos it is determined to treat the patient both for infection and for possible collagen vascular disease with steroids, under the cover of antibiotics. There is no bleeding on Eliquis. There is no TIA CVA symptoms. PHYSICAL EXAMINATION: The patient is morbidly obese. In no acute distress. Selected Entries 08/02/19 08/02/19 08/02/19 07:13 15:40 16:00 Heart Rate ( 126 Monitors) Respiratory 16 Rate Blood Pressure 118/65 121/98 H Blood Pressure 82 Mean O2 Sat by Pulse 95 Oximetry Oxygen Delivery Room Air Method HEAD: Is atraumatic normocephalic. EYES: Pupils are equal round regular reactive to light and accommodation. There is no clinical pallor. There is no scleral icterus. External ocular movements are normal. EARS: Tympanic membranes are intact. External auditory canals are clear. NOSE: Nasal mucous membranes are not inflamed. There is no deviated nasal septum. MOUTH: Mucous membranes of mouth are moist. Tongue is moist. There is no ulcers. There is no bleeding from the gums. THROAT: There is no redness of the oropharynx. There is no exudates in the throat. SKIN: There is no petechia or ecchymosis. There is no skin rashes or skin lesions. NECK: Is supple. There is no JVD. Carotids are equal there is no bruits. There is no lymphadenopathy. There is no goiter. There is no accessory muscles of respiration in use. Trachea central. LUNGS: There is diminished air entry and prolonged expiration. On percussion there is hyperresonance. There is scattered rhonchi present. There is no rales or wheezing. There is no chest wall tenderness on palpation. HEART: S1-S2 is heard. S1 is of v all of normal intensity. There is no S3 gallop. There is no S4 gallop. There is systolic murmur left sternal border and the apex, without radiation. There is no murmur of aortic stenosis. . There is no aortic regurgitation murmur.. There is no rub. ABDOMEN: Is Nontender. There is no hepatosplenomegaly. Bowel sounds are well heard. EXTREMITIES: Femorals are deep. Femorals are slightly diminished. There is no femoral bruits. There is no pedal edema. There is no DVT or cellulitis. Leg pulses are diminished. There is no cyanosis or clubbing. Capillary refill is normal. There is no calf tenderness. 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 PSYCHIATRIC: The patient judgment and in sight are intact her affect is normal. Labs- All tests 24 hr 08/01/19 08/02/19 08/02/19 22:19 05:03 05:03 WBC 9.5 RBC 3.62 L Hgb 11.3 L Hct 33.1 L MCV 92 MCH 31.2 MCHC 34.0 RDW 14.4 H Plt Count 200 Lymph % (Auto) 19.4 [place] % (Auto) 14.5 H Eos % (Auto) 0.5 Baso % (Auto) 0.4 Absolute Neuts (auto) 6.2 Absolute Lymphs (auto) 1.8 Absolute Monos (auto) 1.4 Absolute Eos (auto) 0.1 Absolute Basos (auto) 0.0 Seg Neutrophils % 65.2 ESR 33 H PT 18.5 H INR 1.53 APTT 36.4 H POC Glucose 111 H Phosphorus Magnesium C-Reactive Protein Rheumatoid Factor 08/02/19 08/02/19 08/02/19 05:03 05:03 07:13 WBC RBC Hgb Hct MCV MCH MCHC RDW Plt Count Lymph % (Auto) [place] % (Auto) Eos % (Auto) Baso % (Auto) Absolute Neuts (auto) Absolute Lymphs (auto) Absolute Monos (auto) Absolute Eos (auto) Absolute Basos (auto) Seg Neutrophils % ESR PT INR APTT POC Glucose 88 Phosphorus 3.4 Magnesium 1.8 C-Reactive Protein 43.0 H Rheumatoid Factor NEGATIVE Chest CT 07/30/19 00:00 IMPRESSION: 1. Trace right pleural effusion with minimal right lower lobe ground-glass opacities, likely atelectasis although infectious/ inflammatory component not entirely excluded. 2. Cardiomegaly. 3. Moderate hiatal hernia. Chest X-Ray 07/30/19 06:51 IMPRESSION: 1. Bibasilar focal patchy areas increased parenchymal density, may be on the basis of infiltrate/atelectasis. 2. Borderline cardiomegaly, may be in part related to patient positioning. Abdomen/Pelvis CT 08/01/19 00:00 IMPRESSION: 1. No acute intra-abdominal abnormality. 2. Other secondary findings including a moderate hiatal hernia, colonic diverticulosis without diverticulitis, mild anasarca and probable hepatic steatosis. Venous Doppler Study 08/01/19 00:00 IMPRESSION: No DVT. Chest/Abdomen CTA 08/02/19 00:00 IMPRESSION: No CT angio evidence of acute pulmonary emboli. Trace bilateral pleural effusions with bibasilar atelectasis. Probably benign postinflammatory thin walled cavity with debris in the medial left upper lobe IMPRESSION/RECOMMENDATION: 1. Recurrent atrial fibrillation without rapid ventricular response. In spite of amiodarone drip and Cardizem drip the patient continues to be with still a very high ventricular response to the atrial fibrillation. As discussed with Dr. Ramos the patient has been started on antibiotics and as well as steroids. 2. Hypertension 3. Severe pulmonary hypertension: We will stop the patient's Lopressor and start the patient on Cardizem. We will start a collagen vascular disease work- up 4. Hypokalemia: Mild. Replace potassium. In view of the patient's hypertension and low potassium recheck the patient's serum aldosterone levels. 5. Hiatal hernia/GERD. 5. Morbid obesity. Medications reviewed. Medication adjusted. Medical management plan and medical regime discussed with Dr. Ramos in detail. Medical decision making is of high complexity. 40 minutes spent on this patient more than 50% of time spent in direct patient care.
[2019-08-02] MEDS: METHYLPREDNISOLONE INJ 40 MG/1 ML SDV IV SCH (21:08)
[2019-08-02] MEDS ORDERED: DOXYCYCLINE HYCLATE 100 MG TABLET PO SCH (22:00)
[2019-08-03] MEDS: DILTIAZEM HCL/D5W 125 MG/125 ML RTUINJ IV PRN ×3 (04:16→22:02)
[2019-08-03] MEDS ORDERED: CALCIUM CARBONATE 500 MG TAB.CHEW PO PRN (04:22)
[2019-08-03 05:48] LABS: ANION GAP 10 (5-19); BLOOD UREA NITROGEN 5 mg/dL (7-20); CALCIUM 9.5 mg/dL (8.4-10.2); CARBON DIOXIDE 24 mmol/L (22-30); CHLORIDE 103 mmol/L (98-107); GLUCOSE 161 mg/dL (75-110)
[2019-08-03] MEDS: INSULIN LISPRO 100 UNIT/ML 3 ML VIAL SUBCUT SCH ×4 (08:26→22:20)
[2019-08-03] MEDS: FLUTICASONE NASAL SPRAY 50 MCG/SPRY 120 SPRAY/16 GM NASL SCH (09:04)
[2019-08-03] MEDS: CETIRIZINE 10 MG TABLET PO SCH (09:04)
[2019-08-03] MEDS: APIXABAN 5 MG TABLET PO SCH ×2 (09:04→20:59)
[2019-08-03] MEDS: DILTIAZEM HCL 120 MG CAP.SR.24H PO SCH ×2 (09:04→20:59)
[2019-08-03] MEDS: METHYLPREDNISOLONE INJ 40 MG/1 ML SDV IV SCH ×2 (09:04→21:00)
[2019-08-03] MEDS ORDERED: DIGOXIN INJ 0.5 MG/2 ML AMPULE IV ONE (11:00)
--- NOTE | 2019-08-03 11:30 | PDOC TRANSFER SUMMARY ---
General Admission Date/PCP: 07/30/19 11:15 SALLY MARTIN MD Transfer Date: 08/03/19 Accepting Facility: [facility] Resuscitation Status: Full Code - Transfer Diagnosis (1) Atrial fibrillation with rapid ventricular response Is this a current diagnosis for this admission?: Yes Diagnosis Summary: Refractory atrial fibrillation's patient is already on amiodarone drips Cardizem's already try the beta-jessica already on Eliquis still not under cont rol as per discussed with the Dr. Carpenter cardiology is referred to the [facility] for further evaluations discussed with the patient and the and the bedside (2) Atrial enlargement, bilateral Is this a current diagnosis for this admission?: Yes (3) Edema, lower extremity Is this a current diagnosis for this admission?: Yes (4) Impaired fasting glucose Is this a current diagnosis for this admission?: Yes (5) Severe pulmonary arterial systolic hypertension Is this a current diagnosis for this admission?: Yes Diagnosis Summary: Referred to the tertiary center for further evaluations - Transfer Medications Home Medications: Atenolol [Tenormin] 25 mg PO DAILY 07/30/19 Diclofenac Sodium [Voltaren] 4 gm TP DAILYP PRN 07/30/19 Ibuprofen [Motrin 800 mg Tablet] 800 mg PO BID 07/30/19 Lisinopril/Hydrochlorothiazide [Lisinopril-Hctz 20-25 mg Tab] 1 each PO DAILY 07/30/19 Transfer Medications: Current Medications Acetaminophen (Tylenol 325 Mg Tablet) 650 mg PO Q4HP PRN PRN Reason: FOR PAIN OR TEMP Stop: 08/31/19 06:41 Last Admin: 08/02/19 11:12 Dose: 650 mg Documented by: Apixaban (Eliquis 5 Mg Tablet) 5 mg PO Q12 SUSIE Stop: 08/30/19 21:59 Last Admin: 08/03/19 09:04 Dose: 5 mg Documented by: Calcium Carbonate (Tums Chewable 500 Mg Tab.Chew) 500 mg PO Q4HP PRN PRN Reason: INDIGESTION Stop: 09/02/19 04:21 Last Admin: 08/03/19 04:40 Dose: 500 mg Documented by: Dextrose (Dextrose Inj 50% Syringe (25 Gm/50 Ml)) 12.5 gm IV PRN PRN; Protocol PRN Reason: FOR BG 50-69 IN ALERT PATIENT Stop: 08/30/19 23:29 Dextrose (Dextrose Inj 50% Syringe (25 Gm/50 Ml)) 25 gm IV PRN PRN; Protocol Stop: 08/30/19 23:29 Diltiazem HCl (Cardizem Cd 120 Mg Capsule) 120 mg PO Q12 [facility] Stop: 09/01/19 09:59 Last Admin: 08/03/19 09:04 Dose: 120 mg Documented by: Fluticasone Propionate (Flonase Nasal [place] 50 Mcg/[place] 16 Gm) 1 spray NASL DAILY [facility] Stop: 08/31/19 09:59 Last Admin: 08/03/19 09:04 Dose: 1 spr Documented by: Glucagon (Glucagen Inj 1 Mg Vial) 1 mg IM PRN PRN; Protocol PRN Reason: EVALUATE FOR BG < 70 Stop: 08/30/19 23:29 Glucose (Glutose 40% Gel 15 Gm Tube) 15 gm PO PRN PRN; Protocol PRN Reason: FOR BG 50-69 IN ALERT PATIENT Stop: 08/30/19 23:29 Glucose (Glutose 40% Gel 15 Gm Tube) 30 gm PO PRN PRN; Protocol PRN Reason: FOR BG < 50 IN ALERT PATIENT Stop: 08/30/19 23:29 Diltiazem HCl (Cardizem Rtu Inj 125 Mg-D5w 125 Ml Premix) 125 mg in 125 mls @ 10 mls/hr IV CONTINUOUS PRN; Protocol PRN Reason: THIS MED IS NOT "PRN" Stop: 09/01/19 10:58 Last Admin: 08/03/19 04:16 Dose: 15 mg/hr, 15 mls/hr Documented by: Amiodarone HCl 900 mg/ (Dextrose) 500 mls @ 0 mls/hr IV CONTINUOUS PRN; Protocol PRN Reason: THIS MED IS NOT "PRN" Stop: 08/05/19 13:38 Last Admin: 08/02/19 11:30 Dose: 16.6 ml/hr, 16.6 mls/hr Documented by: Insulin Human Lispro (Humalog Insulin 100 Unit/1 Ml 3 Ml Vial) 0 - 12 unit SUBCUT ACHS [facility]; Protocol Stop: 08/31/19 07:59 Last Admin: 08/03/19 08:26 Dose: Not Given Documented by: Methylprednisolone Sodium Succinate (Solu-Medrol Inj/Pf 40 Mg/1 Ml Sdv) 40 mg IV Q12 [facility] Stop: 09/01/19 21:59 Last Admin: 08/03/19 09:04 Dose: 40 mg Documented by: Sodium Chloride (Saline Flush 2.5 Ml Monoject Prefil Syrin) 2.5 ml IV Q8 [facility] Stop: 08/29/19 13:59 Last Admin: 08/03/19 08:38 Dose: Not Given Documented by: - Allergies Allergies/Adverse Reactions: Penicillins Allergy (Intermediate, Verified 08/06/11 09:38) Swelling, itching Hospital Course Hospital Course: This is a 59-year-old female admitting in the hospitals for the rapid ventricula r response with A. fib patient initially put in the intensive care unit because but not responding the initial ER treatments patient was put on a Cardizem drip amiodarone drips and started on high-dose beta-jessica patient's response transferred to the IMCU Patient seen by the cardiology and followed by cardiology adjust the medications but patient's heart rate is still refractory to go up patient CT scan of the chest was done was negative for PE also patient have ultrasound for the lower extremities also negative Patient's echocardiogram suggested severe pulmonary hypertension's As per detailed discussed with the patient and the never had any sleep study done in the past patient at this point given the maximum medical treatments patient heart rate is still not coming down discussed with the cardiology and suggest he will talk to the [facility] Physical Exam Vital Signs: Temp Pulse Resp BP Pulse Ox 98.0 F 154 H 18 145/90 H 93 08/03/19 07:27 08/03/19 10:00 08/03/19 07:27 08/03/19 10:00 08/03/19 07:27 Pulse Oximeter Nocturnal Start: 08/02/19 18:08 Freq: RTQ4 Status: Active Protocol: Document 08/03/19 03:40 CMI (Rec: 08/03/19 04:17 CMI [id number]) Nocturnal Pulse Oximetry Equipment Usage Equipment Standby Continuous SpO2 Machine # 13 Other RN called stated that CPOX has alarmed all night, alarms were adjusted but pulse ox would still alarm. Pt has not had any rest due to the alarms . Nocturnal study not completed will attemp again tonight Intake & Output 08/02/19 08/03/19 08/04/19 06:59 06:59 06:59 Intake Total 677 1930 125 Balance 677 1930 125 Weight 121.7 kg 121 kg General appearance: PRESENT: no acute distress, well-developed, well-nourished Head exam: PRESENT: atraumatic, normocephalic Eye exam: PRESENT: conjunctiva pink, EOMI, PERRLA. ABSENT: scleral icterus Ear exam: PRESENT: normal external ear exam Mouth exam: PRESENT: moist, tongue midline Neck exam: ABSENT: carotid bruit, JVD, lymphadenopathy, thyromegaly Respiratory exam: PRESENT: clear to auscultation reina. ABSENT: rales, rhonchi, wheezes Cardiovascular exam: PRESENT: RRR. ABSENT: diastolic murmur, rubs, systolic murmur Pulses: PRESENT: normal dorsalis pedis pul Vascular exam: PRESENT: normal capillary refill GI/Abdominal exam: PRESENT: normal bowel sounds, soft. ABSENT: distended, guarding, mass, organolmegaly, rebound, tenderness Rectal exam: PRESENT: deferred Extremities exam: PRESENT: full ROM. ABSENT: calf tenderness, clubbing, pedal edema Neurological exam: PRESENT: alert, awake, oriented to person, oriented to place, oriented to time, oriented to situation, CN II-XII grossly intact. ABSENT: motor sensory deficit Psychiatric exam: PRESENT: appropriate affect, normal mood. ABSENT: homicidal ideation, suicidal ideation Skin exam: PRESENT: dry, intact, warm. ABSENT: cyanosis, rash Results Laboratory Results: 08/02/19 05:03 08/03/19 04:31 08/03/19 04:31 Sodium 137.0 Potassium 4.0 Chloride 103 Carbon Dioxide 24 Anion Gap 10 BUN 5 L Creatinine 0.51 L Est GFR ( Amer) > 60 Glucose 161 H Calcium 9.5 07/30/19 07/30/19 07/30/19 06:40 06:40 06:40 Creatine Kinase 53 CK-MB (CK-2) 1.23 Troponin I < 0.012 NT-Pro-B Natriuret Pep 3780 H 07/30/19 07/30/19 07/31/19 11:30 17:57 00:42 Creatine Kinase CK-MB (CK-2) Troponin I < 0.012 < 0.012 < 0.012 NT-Pro-B Natriuret Pep 07/31/19 05:42 Creatine Kinase CK-MB (CK-2) Troponin I NT-Pro-B Natriuret Pep 1690 H Impressions: Chest CT 07/30/19 00:00 IMPRESSION: 1. Trace right pleural effusion with minimal right lower lobe ground-glass opacities, likely atelectasis although infectious/ inflammatory component not entirely excluded. 2. Cardiomegaly. 3. Moderate hiatal hernia. Chest X-Ray 07/30/19 06:51 IMPRESSION: 1. Bibasilar focal patchy areas increased parenchymal density, may be on the basis of infiltrate/atelectasis. 2. Borderline cardiomegaly, may be in part related to patient positioning. Abdomen/Pelvis CT 08/01/19 00:00 IMPRESSION: 1. No acute intra-abdominal abnormality. 2. Other secondary findings including a moderate hiatal hernia, colonic diverticulosis without diverticulitis, mild anasarca and probable hepatic steatosis. Venous Doppler Study 08/01/19 00:00 IMPRESSION: No DVT. Chest/Abdomen CTA 08/02/19 00:00 IMPRESSION: No CT angio evidence of acute pulmonary emboli. Trace bilateral pleural effusions with bibasilar atelectasis. Probably benign postinflammatory thin walled cavity with debris in the medial left upper lobe Plan Time Spent: Greater than 30 Minutes - Dr. Kwan was going to talk to the [place] [facility] and patient is going to transport discussed with the patient and the on the bedside Already put a consult for pulmonary to further evaluate his to underlying any other etiology about the pulmonary hypertension's
[2019-08-03] MEDS ORDERED: METOPROLOL TARTRATE PF/INJ 5 MG/5 ML SDV IV ONE ×2 (12:15→22:00)
--- NOTE | 2019-08-03 18:37 | Progress Note ---
Provider Note Provider Note: CARDIOLOGY PROGRESS NOTE by Dr. Charlotte Carpenter on 08/03/2019. SUBJECTIVE: The patient although asymptomatic continues to be in atrial fibrillation with uncontrolled/rapid ventricular response. She is on amiodarone infusion and also is on 15 mg/h of Cardizem infusion she also received intermittent doses of Lopressor IV and also digoxin IV. In spite of this the patient continues to be in rapid atrial fibrillation. She denies any chest pain or discomfort she feels palpitations but there is no PND orthopnea or shortness of breath. There is no TIA CVA symptoms. There is no bleeding on Eliquis. PHYSICAL EXAMINATION: The patient is morbidly obese, in spite of a rapid ventricular response to atrial fibrillation she remains comfortable. Selected Entries 08/03/19 08/03/19 08/03/19 11:35 12:00 14:00 Temperature 98.3 F Temperature Oral Source Pulse Rate 139 H 136 H Respiratory 18 Rate Blood Pressure 148/101 H BP Location Right Arm BP Position Supine O2 Sat by Pulse 94 Oximetry Oxygen Delivery Room Air Method HEAD: Is atraumatic normocephalic. EYES: Pupils are equal round regular reactive to light and accommodation. There is no clinical pallor. There is no scleral icterus. External ocular movements are normal. EARS: Tympanic membranes are intact. External auditory canals are clear. NOSE: Nasal mucous membranes are not inflamed. There is no deviated nasal septum. MOUTH: Mucous membranes of mouth are moist. Tongue is moist. There is no ulcers. There is no bleeding from the gums. THROAT: There is no redness of the oropharynx. There is no exudates in the throat. SKIN: There is no petechia or ecchymosis. There is no skin rashes or skin lesions. NECK: Is supple. There is no JVD. Carotids are equal there is no bruits. There is no lymphadenopathy. There is no goiter. There is no accessory muscles of respiration in use. Trachea central. LUNGS: There is diminished air entry and prolonged expiration. On percussion there is hyperresonance. There is scattered rhonchi present. There is no rales or wheezing. There is no chest wall tenderness on palpation. HEART: S1-S2 is heard. S1 is of v all of normal intensity. There is no S3 gallop. There is no S4 gallop. There is systolic murmur left sternal border and the apex, without radiation. There is no murmur of aortic stenosis. . There is no aortic regurgitation murmur.. There is no rub. ABDOMEN: Is Nontender. There is no hepatosplenomegaly. Bowel sounds are well heard. EXTREMITIES: Femorals are deep. Femorals are slightly diminished. There is no femoral bruits. There is no pedal edema. There is no DVT or cellulitis. Leg p ulses are diminished. There is no cyanosis or clubbing. Capillary refill is normal. There is no calf tenderness. BREASTFEEDING EDUCATOR: The patient is conscious awake alert oriented x3 with no focal deficits. PSYCHIATRIC: The patient judgment and insight are intact her affect is normal. Labs- All tests 24 hr 08/03/19 08/03/19 08/03/19 04:31 07:23 11:34 Sodium 137.0 Potassium 4.0 Chloride 103 Carbon Dioxide 24 Anion Gap 10 BUN 5 L Creatinine 0.51 L Est GFR ( Amer) > 60 Est GFR (MDRD) Non-Af > 60 Glucose 161 H POC Glucose 152 H 156 H Calcium 9.5 08/03/19 15:53 Sodium Potassium Chloride Carbon Dioxide Anion Gap BUN Creatinine Est GFR ( Amer) Est GFR (MDRD) Non-Af Glucose POC Glucose [address] 07/30/19 00:00 IMPRESSION: 1. Trace right pleural effusion with minimal right lower lobe ground-glass opacities, likely atelectasis although infectious/ inflammatory component not entirely excluded. 2. Cardiomegaly. 3. Moderate hiatal hernia. Chest X-Ray 07/30/19 06:51 IMPRESSION: 1. Bibasilar focal patchy areas increased parenchymal density, may be on the basis of infiltrate/atelectasis. 2. Borderline cardiomegaly, may be in part related to patient positioning. Abdomen/Pelvis CT 08/01/19 00:00 IMPRESSION: 1. No acute intra-abdominal abnormality. 2. Other secondary findings including a moderate hiatal hernia, colonic diverticulosis without diverticulitis, mild anasarca and probable hepatic steatosis. Venous Doppler Study 08/01/19 00:00 IMPRESSION: No DVT. Chest/Abdomen CTA 08/02/19 00:00 IMPRESSION: No CT angio evidence of acute pulmonary emboli. Trace bilateral pleural effusions with bibasilar atelectasis. Probably benign postinflammatory thin walled cavity with debris in the medial left upper lobe IMPRESSION/RECOMMENDATION: 1. Recurrent atrial fibrillation without rapid ventricular response. In spite of amiodarone drip and Cardizem drip the patient continues to be with still a very high ventricular response to the atrial fibrillation. As discussed with Dr. Ramos the patient has been started on antibiotics and as well as steroids. 2. Hypertension 3. Severe pulmonary hypertension: We will stop the patient's Lopressor and start the patient on Cardizem. We will start a collagen vascular disease work- up. Her RA factor is negative. Aldosterone and other collagen vascular work-up labs are awaited. 4. Hiatal hernia/GERD. 5. Morbid obesity. Medications reviewed. Medications adjusted. Medical management plan discussed in detail with the patient and the patient's family and with Dr. Ramos. In view of the patient's resistant rapid ventricular response to atrial fibrillation it was decided to transfer the patient to a tertiary care center, and Dr. Mari senior financial reporting analyst from [place] was contacted and the case was discussed in entirety. He has accepted the patient. The patient is awaiting a bed. The patient will be transferred to [facility], in [place] for further management of her atrial fibrillation. 50 minutes spent on this patient more than 50% of time spent in direct patient care medical decision making is high complexity. Will sign off since the patient being transferred to [facility]. The patient will follow-up with me after she is discharged from [facility].
[2019-08-03] MEDS: DEXTROSE 5%-WATER 500 ML with AMIODARONE HCL 900 MG IV PRN ×2 (22:02)
[2019-08-04 05:40] LABS: ANION GAP 11 (5-19); BLOOD UREA NITROGEN 7 mg/dL (7-20); CARBON DIOXIDE 25 mmol/L (22-30); CHLORIDE 101 mmol/L (98-107); GLUCOSE 153 mg/dL (75-110); POTASSIUM 4.2 mmol/L (3.6-5.0)
[2019-08-04] MEDS: DILTIAZEM HCL/D5W 125 MG/125 ML RTUINJ IV PRN ×2 (06:23→15:51)
[2019-08-04] MEDS: INSULIN LISPRO 100 UNIT/ML 3 ML VIAL SUBCUT SCH ×3 (08:02→16:21)
[2019-08-04] MEDS: METHYLPREDNISOLONE INJ 40 MG/1 ML SDV IV SCH (09:46)
[2019-08-04] MEDS: APIXABAN 5 MG TABLET PO SCH (09:46)
[2019-08-04] MEDS: DILTIAZEM HCL 120 MG CAP.SR.24H PO SCH (09:46)
[2019-08-04] MEDS: FLUTICASONE NASAL SPRAY 50 MCG/SPRY 120 SPRAY/16 GM NASL SCH (09:50)
--- NOTE | 2019-08-04 15:37 | Progress Note ---
Provider Note Provider Note: CARDIOLOGY PROGRESS NOTE by Dr. Charlotte Carpenter on 08/04/2019. SUBJECTIVE: The patient continues to be in atrial fibrillation with rapid ventricular response. She now states that when she walks to the bathroom and comes back she feels short of breath. She also has occasional episodes of wheezing but no cough. She denies any PND orthopnea or leg edema. There is no chest pain or discomfort. There is no mental arrhythmia seen on the monitor. I did speak to Dr. Avrey the paste mixer in [place] and the case was discussed thoroughly with her. They have made out of bed and the patient is awaiting transport to go to [place]. There is no bleeding on Eliquis. There is no TIA CVA symptoms. PHYSICAL EXAMINATION: The patient's morbidly obese. At rest at present in no acute distress. Selected Entries 08/04/19 08/04/19 08/04/19 11:41 11:50 12:00 Temperature 97.8 F Temperature Oral Source Pulse Rate 140 H Heart Rate ( 134 Monitors) Respiratory 18 Rate Blood Pressure 130/92 H Blood Pressure 108 Mean BP Location Right Arm O2 Sat by Pulse 94 Oximetry Oxygen Delivery Room Air Method 08/04/19 13:00 Temperature Temperature Source Pulse Rate 150 H Heart Rate ( Monitors) Respiratory Rate Blood Pressure 138/84 H Blood Pressure Mean BP Location O2 Sat by Pulse Oximetry Oxygen Delivery Method HEAD: Is atraumatic normocephalic. EYES: Pupils are equal round regular reactive to light and accommodation. There is no clinical pallor. There is no scleral icterus. External ocular movements are normal. EARS: Tympanic membranes are intact. External auditory canals are clear. NOSE: Nasal mucous membranes are not inflamed. There is no deviated nasal septum. MOUTH: Mucous membranes of mouth are moist. Tongue is moist. There is no ulcers. There is no bleeding from the gums. THROAT: There is no redness of the oropharynx. There is no exudates in the throat. SKIN: There is no petechia or ecchymosis. There is no skin rashes or skin lesions. NECK: Is supple. There is no JVD. Carotids are equal there is no bruits. There is no lymphadenopathy. There is no goiter. There is no accessory muscles of respiration in use. Trachea central. LUNGS: There is diminished air entry and prolonged expiration. On percussion there is hyperresonance. There is scattered rhonchi present. There is no rales or wheezing. There is no chest wall tenderness on palpation. HEART: S1-S2 is heard. S1 is of v all of normal intensity. There is no S3 gallop. There is no S4 gallop. There is systolic murmur left sternal border and the apex, without radiation. There is no murmur of aortic stenosis. . There is no aortic regurgitation murmur.. There is no rub. ABDOMEN: Is Nontender. There is no hepatosplenomegaly. Bowel sounds are well heard. EXTREMITIES: Femorals are deep. Femorals are slightly diminished. There is no femoral bruits. There is no pedal edema. There is no DVT or cellulitis. Leg pulses are diminished. There is no cyanosis or clubbing. Capillary refill is normal. There is no calf tenderness. RN ORTHO: The patient is conscious awake alert oriented x3 with no focal deficits. PSYCHIATRIC: The patient judgment and insight are intact her affect is normal. 08/02/19 05:03 08/04/19 04:43 MCV 92 fl (80-97) 08/02/19 05:03 MCH 31.2 pg (27.0-33.4) 08/02/19 05:03 MCHC 34.0 g/dL (32.0-36.0) 08/02/19 05:03 RDW 14.4 % (11.5-14.0) H 08/02/19 05:03 Seg Neutrophils % 65.2 % (42-78) 08/02/19 05:03 Carbonic Acid Cancelled 07/30/19 13:11 HCO3/H2CO3 Ratio Cancelled 07/30/19 13:11 ABG pH Cancelled 07/30/19 13:11 ABG pCO2 Cancelled 07/30/19 13:11 ABG pO2 Cancelled 07/30/19 13:11 ABG HCO3 Cancelled 07/30/19 13:11 ABG O2 Saturation Cancelled 07/30/19 13:11 ABG Base Excess Cancelled 07/30/19 13:11 VBG pH 7.37 (7.30-7.42) 07/30/19 13:11 VBG pCO2 44.4 mmHg (35-63) 07/30/19 13:11 VBG HCO3 24.9 mmol/L (20-32) 07/30/19 13:11 VBG Base Excess -0.7 mmol/L 07/30/19 13:11 FiO2 Cancelled 07/30/19 13:11 Chloride 101 mmol/L (98-107) 08/04/19 04:43 Carbon Dioxide 25 mmol/L (22-30) 08/04/19 04:43 Anion Gap 11 (5-19) 08/04/19 04:43 Est GFR ( Amer) > 60 (>60) 08/04/19 04:43 Glucose 153 mg/dL (75-110) H 08/04/19 04:43 Lactic Acid 1.8 mmol/L (0.7-2.1) 07/30/19 17:57 Calcium 10.0 mg/dL (8.4-10.2) 08/04/19 04:43 Phosphorus 3.4 mg/dL (2.5-4.5) 08/02/19 05:03 Magnesium 1.8 mg/dL (1.6-2.3) 08/02/19 05:03 Total Bilirubin 0.9 mg/dL (0.2-1.3) 07/31/19 05:42 AST 32 U/L (14-36) 07/31/19 05:42 Alkaline Phosphatase 64 U/L (38-126) 07/31/19 05:42 C-Reactive Protein 43.0 mg/L (<10.0) H 08/02/19 05:03 Total Protein 6.5 g/dL (6.3-8.2) 07/31/19 05:42 Albumin 3.6 g/dL (3.5-5.0) 07/31/19 05:42 Triglycerides 84 mg/dL (<150) 07/31/19 05:42 Cholesterol 158.02 mg/dL (0-200) 07/31/19 05:42 LDL Cholesterol Direct 114 mg/dL (<100) H 07/31/19 05:42 VLDL Cholesterol 17.0 mg/dL (10-31) 07/31/19 05:42 HDL Cholesterol 34 mg/dL (>40) L 07/31/19 05:42 TSH 2.17 uIU/mL (0.47-4.68) 07/30/19 06:40 Urine Color STRAW 07/30/19 14:00 Urine Appearance CLEAR 07/30/19 14:00 Urine pH 6.0 (5.0-9.0) 07/30/19 14:00 Ur Specific Warren 1.032 07/30/19 14:00 Urine Protein NEGATIVE mg/dL (NEGATIVE) 07/30/19 14:00 Urine Glucose (UA) NEGATIVE mg/dL (NEGATIVE) 07/30/19 14:00 Urine Ketones 20 mg/dL (NEGATIVE) H 07/30/19 14:00 Urine Blood NEGATIVE (NEGATIVE) 07/30/19 14:00 Urine Nitrite NEGATIVE (NEGATIVE) 07/30/19 14:00 Ur Leukocyte Esterase NEGATIVE (NEGATIVE) 07/30/19 14:00 Urine WBC (Auto) 0 /HPF 07/30/19 14:00 Urine RBC (Auto) 0 /HPF 07/30/19 14:00 07/30/19 13:49 Blood Blood Culture - Final NO GROWTH IN 5 DAYS 07/30/19 11:30 Blood Blood Culture - Final NO GROWTH IN 5 DAYS 07/30/19 07/30/19 07/30/19 06:40 06:40 06:40 Creatine Kinase 53 CK-MB (CK-2) 1.23 Troponin I < 0.012 NT-Pro-B Natriuret Pep 3780 H 07/30/19 07/30/19 07/31/19 11:30 17:57 00:42 Creatine Kinase CK-MB (CK-2) Troponin I < 0.012 < 0.012 < 0.012 NT-Pro-B Natriuret Pep 07/31/19 05:42 Creatine Kinase CK-MB (CK-2) Troponin I NT-Pro-B Natriuret Pep [address] 07/30/19 00:00 IMPRESSION: 1. Trace right pleural effusion with minimal right lower lobe ground-glass opacities, likely atelectasis although infectious/ inflammatory component not entirely excluded. 2. Cardiomegaly. 3. Moderate hiatal hernia. Chest X-Ray 07/30/19 06:51 IMPRESSION: 1. Bibasilar focal patchy areas increased parenchymal density, may be on the basis of infiltrate/atelectasis. 2. Borderline cardiomegaly, may be in part related to patient positioning. Abdomen/Pelvis CT 08/01/19 00:00 IMPRESSION: 1. No acute intra-abdominal abnormality. 2. Other secondary findings including a moderate hiatal hernia, colonic diverticulosis without diverticulitis, mild anasarca and probable hepatic steatosis. Venous Doppler Study 08/01/19 00:00 IMPRESSION: No DVT. The results of the SHAILA, DNA are awaited. As also the serum aldosterone level is elevated. Chest/Abdomen CTA 08/02/19 00:00 IMPRESSION: No CT angio evidence of acute pulmonary emboli. Trace bilateral pleural effusions with bibasilar atelectasis. Probably benign postinflammatory thin walled cavity with debris in the medial left upper lobe Medications reviewed. Medication regimen and management plan discussed with attending physician. Medical decision making is of high complexity. 40 minutes spent on this patient with more than 50% of time spent in direct patient care. Will sign off since the patient be transferred to [facility], in [place]. As per the patient's wishes she will follow-up with me after she is discharged from [place]. IMPRESSION/RECOMMENDATION: 1. Recurrent atrial fibrillation without rapid ventricular response. In spite of amiodarone drip and Cardizem drip the patient continues to be with still a v patria high ventricular response to the atrial fibrillation. As discussed with Dr. Ramos the patient has been started on antibiotics and as well as steroids. 2. Hypertension 3. Severe pulmonary hypertension: We will stop the patient's Lopressor and start the patient on Cardizem. We will start a collagen vascular disease work- up 4. Hypokalemia: Mild. Replace potassium. In view of the patient's hypertension and low potassium recheck the patient's serum aldosterone levels. 5. Hiatal hernia/GERD. 5. Morbid obesity.
[2019-08-04 17:05] VITALS: BP 138/96
== END 2019-08-04 16:56 | disposition short-term general hospital (02) | DRG 309 ==
LOC: ER 06:29 → EH 11:15 → ICU 12:30 → 3S 07-31 17:00
PROVIDERS: ADMIT Family Medicine; ATTEND Family Medicine
DX: I48.19 Other persistent atrial fibrillation (principal); Z68.41 Body mass index [BMI] 40.0-44.9, adult; I11.9 Hypertensive heart disease without heart failure; I27.20 Pulmonary hypertension, unspecified; R73.02 Impaired glucose tolerance (oral); E78.5 Hyperlipidemia, unspecified; K21.9 Gastro-esophageal reflux disease without esophagitis; K44.9 Diaphragmatic hernia without obstruction or gangrene; M62.81 Muscle weakness (generalized); D72.823 Leukemoid reaction; H53.8 Other visual disturbances; E66.01 Morbid (severe) obesity due to excess calories; E87.6 Hypokalemia; R60.9 Edema, unspecified; Z79.01 Long term (current) use of anticoagulants; Z88.0 Allergy status to penicillin
CPT/HCPCS: 36415; 71045; 71260; 71275; 74176; 80048; 80053; 80061; 80307; 81001; 82088; 82550; 82553; 82803; 82962; 83036; 83605; 83735; 83880; 84100; 84443; 84484; 85025; 85610; 85652; 85730; 86038; 86140; 86225; 86430; 87040; 93005; 93010; 93306; 93970; 94762; 96361; 96365; 96366; 96367; 96375; 96376; 99285; 99291; J0282; J1160; J1644; J2920; J3475; J3480; J3490; J7040; J7060; J7120

== ENCOUNTER → 2019-08-20 | Outpatient (CLI) | payer BC ==
[2019-08-20 11:00] LABS: ABSOLUTE BASOPHILS # (AUTO) 0.1 10^3/uL (0.0-0.2); ABSOLUTE EOSINOPHILS # (AUTO) 0.1 10^3/uL (0.0-0.6); ABSOLUTE LYMPHOCYTES (AUTO) 1.4 10^3/uL (0.5-4.7); ABSOLUTE NEUT (AUTO) 5.1 10^3/uL (1.7-8.2); EOSINOPHILS % (AUTO) 1.3 % (0-6); HEMOGLOBIN 12.3 g/dL (12.0-15.5); LYMPHOCYTES % (AUTO) 17.6 % (13-45); MEAN CORPUSCULAR HEMOGLOBIN 31.5 pg (27.0-33.4); MEAN CORPUSCULAR HGB CONC 34.1 g/dL (32.0-36.0); MEAN CORPUSCULAR VOLUME 92 fl (80-97); MONOCYTES % (AUTO) 13.3 % (3-13); PLATELET COUNT 231 10^3/uL (150-450); RED BLOOD COUNT 3.91 10^6/uL (3.72-5.28); RED CELL DISTRIBUTION WIDTH 14.7 % (11.5-14.0); SEGMENTED NEUTROPHILS % (AUTO) 66.8 % (42-78); TOTAL CELLS COUNTED % (AUTO) 100 %; WHITE BLOOD COUNT 7.7 10^3/uL (4.0-10.5)
--- NOTE | 2019-08-20 11:07 | RADIOLOGY REPORT (SQ) ---
EXAM DESCRIPTION: CHEST 2 VIEWS COMPLETED DATE/TIME: 08/20/2019 10:50 am REASON FOR STUDY: SHORTNESS OF BREATH COMPARISON: 07/30/2019 EXAM PARAMETERS: NUMBER OF VIEWS: two views TECHNIQUE: Digital Frontal and Lateral radiographic views of the chest acquired. RADIATION DOSE: NA LIMITATIONS: none FINDINGS: LUNGS AND PLEURA: Minimal blunting of costophrenic angles. MEDIASTINUM AND HILAR STRUCTURES: Small paraesophageal hernia. HEART AND VASCULAR STRUCTURES: Heart normal size. No evidence for failure. BONES: No acute findings. HARDWARE: None in the chest. OTHER: No other significant finding. IMPRESSION: Minimal pleural effusions. Small paraesophageal hernia. TECHNICAL DOCUMENTATION: JOB ID: [id number] [employer]- All Rights Reserved Reading location - IP/workstation name: [email or web address]
[2019-08-20 11:29] LABS: ALKALINE PHOSPHATASE 61 U/L (38-126); ANION GAP 9 (5-19); ASPARTATE AMINO TRANSFERASE 25 U/L (14-36); BILIRUBIN,DIRECT 0.2 mg/dL (0.0-0.4); BILIRUBIN,TOTAL 0.9 mg/dL (0.2-1.3); BLOOD UREA NITROGEN 6 mg/dL (7-20); CALCIUM 9.6 mg/dL (8.4-10.2); CARBON DIOXIDE 26 mmol/L (22-30); CHLORIDE 105 mmol/L (98-107); GLUCOSE 96 mg/dL (75-110); POTASSIUM 4.2 mmol/L (3.6-5.0); TOTAL PROTEIN 7.3 g/dL (6.3-8.2)
== END ==
LOC: RAD 10:22
PROVIDERS: ATTEND Physician Assistant
DX: J90 Pleural effusion, not elsewhere classified (principal); K44.9 Diaphragmatic hernia without obstruction or gangrene; R06.02 Shortness of breath
CPT/HCPCS: 36415; 71046; 80053; 83735; 85025

== ENCOUNTER → 2019-08-24 | Outpatient (CLI) | payer BC ==
[2019-08-24 14:57] LABS: ALBUMIN 3.8 g/dL (3.5-5.0); ALKALINE PHOSPHATASE 53 U/L (38-126); ANION GAP 8 (5-19); ASPARTATE AMINO TRANSFERASE 24 U/L (14-36); BILIRUBIN,DIRECT 0.4 mg/dL (0.0-0.4); BILIRUBIN,TOTAL 0.9 mg/dL (0.2-1.3); BLOOD UREA NITROGEN 4 mg/dL (7-20); CALCIUM 9.6 mg/dL (8.4-10.2); CARBON DIOXIDE 28 mmol/L (22-30); CHLORIDE 105 mmol/L (98-107); GLUCOSE 97 mg/dL (75-110); POTASSIUM 4.8 mmol/L (3.6-5.0); TOTAL PROTEIN 6.8 g/dL (6.3-8.2)
[2019-08-24 15:14] LABS: FREE T3 3.02 pg/mL (2.77-5.27); FREE T4 (FREE THYROXINE) 1.99 ng/dL (0.78-2.19)
[2019-08-24 15:28] LABS: THYROID STIMULATING HORMONE 1.94 uIU/mL (0.47-4.68)
== END ==
LOC: OD 14:15
PROVIDERS: ATTEND Specialist
DX: I10 Essential (primary) hypertension (principal); R00.2 Palpitations; I36.1 Nonrheumatic tricuspid (valve) insufficiency; K21.9 Gastro-esophageal reflux disease without esophagitis; R06.00 Dyspnea, unspecified; Z79.899 Other long term (current) drug therapy; E78.49 Other hyperlipidemia; I48.0 Paroxysmal atrial fibrillation
CPT/HCPCS: 36415; 80048; 80076; 84439; 84443; 84481

== ENCOUNTER 2019-08-27 13:20 | Emergency (ER) | payer BC ==
--- NOTE | 2019-08-27 15:13 | ER Document Report ---
ED Medical Screen (RME) - General Chief Complaint: Abnormal Lab Results Stated Complaint: ABDOMINAL PAIN Time Seen by Provider: 08/27/19 15:05 Primary Care Provider: MARY MAX PA [Primary Care Provider] - Follow up as needed Mode of Arrival: Ambulatory Information source: Patient Notes: This 59-year-old female with history of A. fib congestive heart failure presents emergency department with bilateral leg swelling shortness of breath reports she has had it for over a month. She was treated here in [facility] ER last month and sent to [facility]. She reports she has had the symptoms since then. She was seen by her primary care provider today labs have been done chest x-ray was completed, patient reports her provider sent her here for treatment. I have greeted and performed a rapid initial assessment of this patient. A comprehensive ED assessment and evaluation of the patient, analysis of test results and completion of the medical decision making process will be conducted by additional ED providers. TRAVEL OUTSIDE OF THE [place] IN LAST 30 DAYS: No - Related Data Allergies/Adverse Reactions: Penicillins Allergy (Intermediate, Verified 08/27/19 14:50) Swelling, itching Past Medical History - Past Medical History Cardiac Medical History: Reports: Hx Atrial Fibrillation, Hx Hypertension - Controlled with meds Denies: Hx Congestive Heart Failure, Hx Coronary Artery Disease, Hx DVT, Hx Heart Attack, Hx Peripheral Vascular Disease, Hx Pulmonary Embolism Pulmonary Medical History: Denies: Hx Asthma, Hx Bronchitis, Hx COPD, Hx Pneumonia, Hx Respiratory Failure, Hx Sleep Apnea Neurological Medical History: Denies: Hx Cerebrovascular Accident, Hx Migraine, Hx Seizures Endocrine Medical History: Denies: Hx Diabetes Mellitus Type 1, Hx Diabetes Mellitus Type 2, Hx Hypothyroidism Musculoskeltal Medical History: Denies Hx Arthritis Past Surgical History: Reports: Hx Gynecologic Surgery - Uterine fibroids removed, Other - Right knee meniscus repair - Immunizations Hx Diphtheria, Pertussis, Tetanus Vaccination: Yes Physical Exam - Vital signs Vitals: Temp Pulse Resp BP Pulse Ox 98.0 F 59 L 16 174/98 H 98 08/27/19 13:39 08/27/19 13:39 08/27/19 13:39 08/27/19 13:39 08/27/19 13:39 Course - Vital Signs Vital signs: Temp Pulse Resp BP Pulse Ox 98.0 F 59 L 16 174/98 H 98 08/27/19 13:39 08/27/19 13:39 08/27/19 13:39 08/27/19 13:39 08/27/19 13:39 Doctor's Discharge - Discharge Referrals: MARY MAX PA [Primary Care Provider] - Follow up as needed
[2019-08-27 16:35] LABS: APPEARANCE,URINE SLIGHTLY-CLOUDY; BILIRUBIN,URINE NEGATIVE (NEGATIVE); COLOR,URINE YELLOW; GLUCOSE, URINE NEGATIVE (NEGATIVE); KETONES,URINE TRACE mg/dL (NEGATIVE); LEUKOCYTE ESTERASE,URINE MODERATE (NEGATIVE); NITRITE,URINE NEGATIVE (NEGATIVE); PROTEIN,URINE 30 mg/dL (NEGATIVE); URINE SPECIFIC GRAVITY 1.012; UROBILINOGEN,URINE NEGATIVE mg/dL (<2.0)
[2019-08-27] MEDS ORDERED: FUROSEMIDE INJ/PF 40 MG/4 ML SDV IV ONE (18:28)
--- NOTE | 2019-08-27 18:35 | ER Document Report ---
ED General - General Chief Complaint: Feet Swelling Stated Complaint: ABDOMINAL PAIN Time Seen by Provider: 08/27/19 15:05 Primary Care Provider: MARY MAX PA [NO LOCAL MD] - Follow up as needed Mode of Arrival: Ambulatory Notes: 59-year-old female presents emergency department complaining of increasing shortness of breath, dyspnea on exertion and leg swelling for the past month. Denies any chest pain, denies any cough. Denies any history of CHF, pulmonary embolism or DVT. Admits to history of atrial fibrillation and is taking Eliquis as directed. Has not skipped any doses. Patient went to her primary care physician's office today and had blood work performed, d-dimer was found to be elevated as was her proBNP and she was sent here for further work-up. Primary care physician is Dr. Ramos. TRAVEL OUTSIDE OF THE [place] IN LAST 30 DAYS: No - Related Data Allergies/Adverse Reactions: Penicillins Allergy (Intermediate, Verified 08/27/19 14:50) Swelling, itching Past Medical History - General Information source: Patient - Social History Smoking Status: Former Smoker Frequency of alcohol use: Occasional Drug Abuse: None Family History: Hypertension. denies: CAD, COPD, CVA, DM, Malignancy, Thyroid Disfunction Patient has suicidal ideation: No Patient has homicidal ideation: No - Past Medical History Cardiac Medical History: Reports: Hx Atrial Fibrillation, Hx Hypertension - Controlled with meds Denies: Hx Congestive Heart Failure, Hx Coronary Artery Disease, Hx DVT, Hx Heart Attack, Hx Peripheral Vascular Disease, Hx Pulmonary Embolism Pulmonary Medical History: Denies: Hx Asthma, Hx Bronchitis, Hx COPD, Hx Pneumonia, Hx Respiratory Failure, Hx Sleep Apnea Neurological Medical History: Denies: Hx Cerebrovascular Accident, Hx Migraine, Hx Seizures Endocrine Medical History: Denies: Hx Diabetes Mellitus Type 1, Hx Diabetes Mellitus Type 2, Hx Hypothyroidism Musculoskeletal Medical History: Denies Hx Arthritis Past Surgical History: Reports: Hx Gynecologic Surgery - Uterine fibroids removed, Other - Right knee meniscus repair - Immunizations Hx Diphtheria, Pertussis, Tetanus Vaccination: Yes Review of Systems - Review of Systems Constitutional: No symptoms reported EENT: No symptoms reported Cardiovascular: See HPI, Dyspnea. denies: Chest pain Respiratory: See HPI Musculoskeletal: See HPI -: Yes All other systems reviewed and negative Physical Exam - Vital signs Vitals: Temp Pulse Resp BP Pulse Ox 98.0 F 59 L 16 174/98 H 98 08/27/19 13:39 08/27/19 13:39 08/27/19 13:39 08/27/19 13:39 08/27/19 13:39 Interpretation: Hypertensive - Notes Notes: GENERAL: Alert, interacts well. No acute distress. HEAD: Normocephalic, atraumatic EYES: Pupils equal, round and reactive to light, extraocular movements intact. ENT: Oral mucosa moist, tongue midline. NECK: Full range of motion, supple, trachea midline. LUNGS: Trace crackles at the bases, no wheezes, no rhonchi, no respiratory distress. HEART: Regular rate and rhythm, no murmurs, gallops, rubs. ABDOMEN: Soft, nontender, nondistended, bowel sounds present in all 4 quadrants. EXTREMITIES: Moves all 4 extremities spontaneously, 3+ pitting edema to the level of the knee, radial and dorsalis pedis pulses 2/4 bilaterally. No cyanosis. NEUROLOGICAL: Alert and oriented x3, normal speech, biceps and patellar DTRs 2+ bilaterally. PSYCH: Normal mood, normal affect. SKIN: Warm, Dry, no rashes or lesions noted. Course - Re-evaluation Re-evalutation: 08/27/19 21:37 CBC unremarkable, d-dimer elevated at 1.78, ordered by outpatient physician, CMP unremarkable, proBNP elevated at 1560, this is actually slightly lower than it has been on her past 2 visits, urinalysis shows moderate leukocyte esterase but 7 squamous epithelial cells and only 11 WBCs, suspect contamination. Chest x- ray shows mild cardiomegaly with mild interstitial prominence probably due to interstitial edema, faint atelectasis in the lung bases with small pleural effusions. CT angiogram of the chest was ordered based off of her elevated d- dimer as an outpatient. CT of the chest did not reveal any pulmonary embolism but it did show pulmonary hypertension. Patient was surprised to hear that she has pulmonary hypertension however she is followed by Dr. Hampton, discussed with Dr. Hauser who states that she is known to have pulmonary hypertension and he has discussed this with the patient on several occasions. He recommends starting Lasix 20 mg for the edema in her legs and trace edema seen on the chest x-ray. He will follow-up with her as scheduled later this week. Patient is not hypoxic or tachypneic. No indication for admission at this time. 08/27/19 21:38 - Vital Signs Vital signs: Temp Pulse Resp BP Pulse Ox 97.7 F 63 18 162/84 H 97 08/27/19 20:41 08/27/19 20:41 08/27/19 20:41 08/27/19 20:41 08/27/19 20:41 - Laboratory Laboratory results interpreted by me: 08/27/19 15:45 Urine Protein 30 H Urine Ketones TRACE H Ur Leukocyte Esterase MODERATE H - EKG Interpretation by Me Additional EKG results interpreted by me: 08/27/19 21:38 EKG shows sinus rhythm at a rate of 68, slight left axis deviation, normal intervals, no ST segment elevations or depressions, there are T wave inversions noted in V2, V3, V4, ST segment flattening in 3, aVF, V5 per my interpretation. Discharge - Discharge Clinical Impression: Severe pulmonary arterial systolic hypertension, Edema, lower extremity Condition: Stable Disposition: HOME, SELF-CARE Additional Instructions: I have discussed her case with Dr. Hampton. He states that you actually had to echocardiograms in [facility]. He does not think you need another one before you follow-up with him later this week. He would like you to start taking the Lasix 20 mg once a day, this is the fluid pill that we discussed. Please return to the emergency department for any new or concerning symptoms. Prescriptions: Furosemide [Lasix 20 mg Tablet] 20 mg PO QAM #30 tablet Referrals: MICHELLE HAMPTON MD [ACTIVE STAFF] - Follow up as needed SALLY RAMOS MD [Primary Care Provider] - Follow up as needed
[2019-08-27 20:42] VITALS: BP 162/84
--- NOTE | 2019-08-27 21:09 | RADIOLOGY REPORT (SQ) ---
EXAM DESCRIPTION: CLINICAL HISTORY: 59 years, Female, SOB, positive d-dimer COMPARISON: Chest x-ray from today. CT chest 08/02/2019. TECHNIQUE: Axial images through the chest were performed after the administration of intravenous contrast using a pulmonary embolus protocol. MIPS were performed. This exam was performed according to our departmental dose-optimization program which includes use of Automated Exposure Control, adjustment of the mA and/or kV according to patient size and/or use of iterative reconstruction technique. FINDINGS: Moderately large 3.7 cm main pulmonary artery. Measurement was 3.5 cm on previous study. No evidence for pulmonary embolus. Aorta is unremarkable. Mild cardiomegaly. Tiny pericardial effusion increased since 08/02/2019. Small mediastinal lymph nodes. No suspicious adenopathy. Moderate hiatal hernia appears less distended compared to recent study. [id number] bilateral pleural effusions increased since previous study. Bilateral lower lobe atelectasis unchanged. Thin wall cystic structure in the left upper lobe medially containing minimal fecal material is unchanged. Limited images of the upper abdomen suggest mild fatty liver.. Moderate hiatal hernia small bilateral pleural effusions greater on the right. Associated with compressive atelectasis also greater on the right. No significant change. IMPRESSION: 1. No evidence for acute pulmonary embolus. 2. Enlarged main pulmonary artery suggestive of pulmonary hypertension and minimally larger since 08/02/2019. Cardiomegaly slightly more obvious and there is a new a small pericardial effusion. 3. Bilateral [id number] pleural effusions have increased. Compressive atelectasis is unchanged. 4. Incidental cystic structure in the left upper lung medially with thin wasserman and some soft tissue contents unchanged and more likely related to previous infection. 5. Mild fatty liver.
--- NOTE | 2019-08-27 21:56 | EKG REPORT ---
SEVERITY:- ABNORMAL ECG - SINUS RHYTHM BORDERLINE T ABNORMALITIES, ANT-LAT LEADS : Confirmed by: Ruperto Grande MD 27-Aug-2019 21:55:51
== END 2019-08-27 21:49 | disposition home or self-care (01) ==
LOC: ER 13:20
DX: I27.21 Secondary pulmonary arterial hypertension (principal); R06.02 Shortness of breath; R60.9 Edema, unspecified; J90 Pleural effusion, not elsewhere classified; J98.11 Atelectasis; I11.9 Hypertensive heart disease without heart failure; I48.91 Unspecified atrial fibrillation; Z79.01 Long term (current) use of anticoagulants; Z88.0 Allergy status to penicillin; Z87.891 Personal history of nicotine dependence
CPT/HCPCS: 93005; 99285; 81001; 71275; 93010; J1940

== ENCOUNTER → 2019-09-19 | Outpatient (CLI) | payer BC ==
--- NOTE | 2019-09-21 11:34 | Pulmonary Function Test ---
Pulmonary Function Test Date of Procedure:: 09/19/19 INDICATION:: Dyspnea Referring Provider: Dr.Lakshmi Carpenter Glass Technician: Mami Nazario, ALLERGIST/MD, STUDENT RECORDS SPECIALIST - Report Spirometry: Spirometry: pre-FVC: 3.26 L 100% pre-FEV:1 2.55 L 97% pre-FEV1/FVC %: 78 predicted: 82 [id number]%: 1.74 L 63% Lung Volume: Total lung capacity: 4.86 L 92% Vital capacity: 3.26 L 100% Inspiratory capacity: 2.58 L FRC N2: 2.27 L 100% ERV: 0.47 L RV: 1.59 L 79% RV/TLC %:: 33 predicted 38 Diffusion Capactity: DLCO: 21.7 79% DLCO/VA: 4.79 122% Impression: Minimal obstructive ventilatory defect confirmed by the decreased flow in the FEF 25-75%. No restrictive ventilatory defect. No hyperinflation or air trapping. Borderline decrease in diffusion capacity.
== END ==
LOC: RT 09:37
PROVIDERS: ATTEND Specialist
DX: Z79.899 Other long term (current) drug therapy (principal); R06.00 Dyspnea, unspecified
CPT/HCPCS: 94010; 94727; 94729

== ENCOUNTER 2019-09-20 13:18 | Emergency (ER) | payer BC ==
--- NOTE | 2019-09-20 14:01 | ER Document Report ---
ED Medical Screen (RME) - General Chief Complaint: Headache Stated Complaint: HEADACHE Time Seen by Provider: 09/20/19 13:52 Primary Care Provider: SALLY MARTIN MD [Primary Care Provider] - Follow up as needed Mode of Arrival: Ambulatory Information source: Patient Notes: 59-year-old female patient sent over from Dr. Martin's office requesting a head CT. Patient reports she is been having a severe headache for 1 week now with some mental confusion and difficulty putting her thoughts together. She denies any unilateral weakness. No slurred speech. Denies history of stroke. Exam: Face symmetric. Extraocular motions intact. Pupils are 2 mm and equally reactive. Normal speech, normal gait. 5 out of 5 strength in both the distal and proximal upper and lower extremities bilaterally. Sensation is grossly intact throughout. I have greeted and performed a rapid initial assessment of this patient. A comprehensive ED assessment and evaluation of the patient, analysis of test results and completion of the medical decision making process will be conducted by additional ED providers. I have specifically instructed the patient or family members with the patient to immediately return to any nursing staff should anything change in the patient's condition or with their chief complaint. TRAVEL OUTSIDE OF THE [place] IN LAST 30 DAYS: No - Related Data Allergies/Adverse Reactions: Penicillins Allergy (Intermediate, Verified 08/27/19 14:50) Swelling, itching Past Medical History - Social History Frequency of alcohol use: None Drug Abuse: None - Past Medical History Cardiac Medical History: Reports: Hx Atrial Fibrillation, Hx Hypertension - Controlled with meds Denies: Hx Congestive Heart Failure, Hx Coronary Artery Disease, Hx DVT, Hx Heart Attack, Hx Peripheral Vascular Disease, Hx Pulmonary Embolism Pulmonary Medical History: Denies: Hx Asthma, Hx Bronchitis, Hx COPD, Hx Pneumonia, Hx Respiratory Failure, Hx Sleep Apnea Neurological Medical History: Denies: Hx Cerebrovascular Accident, Hx Migraine, Hx Seizures Endocrine Medical History: Denies: Hx Diabetes Mellitus Type 1, Hx Diabetes Mellitus Type 2, Hx Hypothyroidism Musculoskeltal Medical History: Denies Hx Arthritis Past Surgical History: Reports: Hx Gynecologic Surgery - Uterine fibroids removed, Other - Right knee meniscus repair - Immunizations Hx Diphtheria, Pertussis, Tetanus Vaccination: Yes Physical Exam - Vital signs Vitals: Temp Pulse Resp BP Pulse Ox 98.2 F 57 L 18 164/93 H 100 09/20/19 13:32 09/20/19 13:32 09/20/19 13:32 09/20/19 13:32 09/20/19 13:32 Course - Vital Signs Vital signs: Temp Pulse Resp BP Pulse Ox 98.2 F 57 L 18 164/93 H 100 09/20/19 13:32 09/20/19 13:32 09/20/19 13:32 09/20/19 13:32 09/20/19 13:32 Doctor's Discharge - Discharge Referrals: SALLY MARTIN MD [Primary Care Provider] - Follow up as needed
--- NOTE | 2019-09-20 14:14 | RADIOLOGY REPORT (SQ) ---
EXAM DESCRIPTION: CHEST SINGLE VIEW COMPLETED DATE/TIME: 09/20/2019 2:05 pm REASON FOR STUDY: confusion, headache COMPARISON: 08/27/2019. EXAM PARAMETERS: NUMBER OF VIEWS: One view. TECHNIQUE: Single frontal radiographic view of the chest acquired. RADIATION DOSE: NA LIMITATIONS: None. FINDINGS: LUNGS AND PLEURA: No opacities, masses or pneumothorax. No pleural effusion. MEDIASTINUM AND HILAR STRUCTURES: No masses. Contour normal. HEART AND VASCULAR STRUCTURES: Heart upper limits of normal in size. Normal vasculature. BONES: No acute findings. HARDWARE: None in the chest. OTHER: No other significant finding. IMPRESSION: NO ACUTE RADIOGRAPHIC FINDING IN THE CHEST. TECHNICAL DOCUMENTATION: JOB ID: [id number] [employer]- All Rights Reserved Reading location - IP/workstation name: [email or web address]
--- NOTE | 2019-09-20 14:28 | RADIOLOGY REPORT (SQ) ---
EXAM DESCRIPTION: CT HEAD WITHOUT COMPLETED DATE/TIME: 09/20/2019 2:13 pm REASON FOR STUDY: confusion, headache COMPARISON: None. TECHNIQUE: Axial images acquired through the brain without intravenous contrast. Images reviewed wi th bone, brain and subdural windows. Additional sagittal and coronal reconstructions were generated. Images stored on PACS. All CT scanners at this facility use dose modulation, iterative reconstruction, and/or weight based d osing when appropriate to reduce radiation dose to as low as reasonably achievable (ALARA). [facility]: Dose Right [facility]: CareDose [facility]: Dose Right [facility]: Teradose 4D [facility]: [employer] RADIATION DOSE: CT Rad equipment meets quality standard of care and radiation dose reduction techniq ues were employed. CTDIvol: 53.2 mGy. DLP: 991 mGy-cm. mGy. LIMITATIONS: None. FINDINGS: VENTRICLES: Normal size and contour. CEREBRUM: No masses. No hemorrhage. No midline shift. No evidence for acute infarction. Normal gra y/white matter differentiation. No areas of low density in the white matter. CEREBELLUM: No masses. No hemorrhage. No alteration of density. No evidence for acute infarction. EXTRAAXIAL SPACES: No fluid collections. No masses. ORBITS AND GLOBE: No intra- or extraconal masses. Normal contour of globe without masses. CALVARIUM: No fracture. PARANASAL SINUSES: No fluid or mucosal thickening. SOFT TISSUES: No mass or hematoma. OTHER: No other significant finding. IMPRESSION: NORMAL BRAIN CT WITHOUT CONTRAST. EVIDENCE OF ACUTE STROKE: NO. COMMENT: Quality ID # [id number]: Final reports with documentation of one or more dose reduction techniques (e.g., Automated exposure control, adjustment of the mA and/or kV according to patient size, use of iterative reconstruction technique) TECHNICAL DOCUMENTATION: JOB ID: [id number] [employer]- All Rights Reserved Reading location - IP/workstation name: [email or web address]
[2019-09-20 16:04] LABS: ABSOLUTE LYMPHOCYTES (AUTO) 1.4 10^3/uL (0.5-4.7); BASOPHILS % (AUTO) 0.7 % (0-2); EOSINOPHILS % (AUTO) 0.5 % (0-6); HEMATOCRIT 42.4 % (36.0-47.0); LYMPHOCYTES % (AUTO) 21.3 % (13-45); MEAN CORPUSCULAR VOLUME 91 fl (80-97); MONOCYTES % (AUTO) 16.1 % (3-13); PLATELET COUNT 244 10^3/uL (150-450); RED BLOOD COUNT 4.67 10^6/uL (3.72-5.28); RED CELL DISTRIBUTION WIDTH 14.7 % (11.5-14.0); SEGMENTED NEUTROPHILS % (AUTO) 61.4 % (42-78); TOTAL CELLS COUNTED % (AUTO) 100 %; WHITE BLOOD COUNT 6.5 10^3/uL (4.0-10.5)
[2019-09-20 16:06] LABS: PROTHROMBIN TIME 16.3 SEC (11.4-15.4)
[2019-09-20 16:07] LABS: PARTIAL THROMBOPLASTIN TIME 32.9 SEC (23.5-35.8)
--- NOTE | 2019-09-20 17:28 | ER Document Report ---
ED General - General Chief Complaint: Headache Stated Complaint: HEADACHE Time Seen by Provider: 09/20/19 13:52 Primary Care Provider: SALLY MARTIN MD [Primary Care Provider] - Follow up as needed Mode of Arrival: Ambulatory Notes: 59 year old female sent in by Dr. Martin's office due to a headache for the past 3 to 4 days. Patient states that she has had a slowly worsening headache that is both frontal and posterior described as a pressure for the past 3 to 4 days associated with rhinorrhea and a sensation of fullness. Patient also states that she has been confused. When questioned about the confusion she states it is more of a depression. States that several days ago she felt like she might not want to live anymore. States she has been feeling depressed since she was diagnosed with atrial fibrillation and started on a plethora of medications including Eliquis approximately 1 month ago. Has no plan to commit suicide, has no history of depression. Has no history of suicidal ideation. States that she does not intend to kill herself at this time. Has already disclosed to her that she had been feeling depressed and like maybe she did not want to live anymore when she first felt that way. Patient states her main cause of anxiety and depression is the recent diagnosis of atrial fibrillation. She is worried she may have a stroke. TRAVEL OUTSIDE OF THE [place] IN LAST 30 DAYS: No - HPI Relieved by: Other - Tylenol - Related Data Allergies/Adverse Reactions: Penicillins Allergy (Intermediate, Verified 08/27/19 14:50) Swelling, itching Past Medical History - General Information source: Patient - Social History Smoking Status: Never Smoker Frequency of alcohol use: None Drug Abuse: None Family History: Hypertension. denies: CAD, COPD, CVA, DM, Malignancy, Thyroid D isfunction Patient has suicidal ideation: No Patient has homicidal ideation: No - Past Medical History Cardiac Medical History: Reports: Hx Atrial Fibrillation, Hx Hypertension - Controlled with meds Denies: Hx Congestive Heart Failure, Hx Coronary Artery Disease, Hx DVT, Hx Heart Attack, Hx Peripheral Vascular Disease, Hx Pulmonary Embolism Pulmonary Medical History: Denies: Hx Asthma, Hx Bronchitis, Hx COPD, Hx Pneumonia, Hx Respiratory Failure, Hx Sleep Apnea Neurological Medical History: Denies: Hx Cerebrovascular Accident, Hx Migraine, Hx Seizures Endocrine Medical History: Denies: Hx Diabetes Mellitus Type 1, Hx Diabetes Mellitus Type 2, Hx Hypothyroidism Musculoskeletal Medical History: Denies Hx Arthritis Past Surgical History: Reports: Hx Gynecologic Surgery - Uterine fibroids removed, Other - Right knee meniscus repair - Immunizations Hx Diphtheria, Pertussis, Tetanus Vaccination: Yes Review of Systems - Review of Systems Constitutional: See HPI - Depressed. EENT: See HPI, Nose congestion, Nose discharge, Sinus pressure Cardiovascular: No symptoms reported Respiratory: No symptoms reported Neurological/Psychological: See HPI, Depression, Headaches -: Yes All other systems reviewed and negative Physical Exam - Vital signs Vitals: Temp Pulse Resp BP Pulse Ox 98.2 F 57 L 18 164/93 H 100 09/20/19 13:32 09/20/19 13:32 09/20/19 13:32 09/20/19 13:32 09/20/19 13:32 Interpretation: Hypertensive, Bradycardic - Notes Notes: GENERAL: Alert, interacts well. No acute distress. HEAD: Normocephalic, atraumatic EYES: Pupils equal, round and reactive to light, extraocular movements intact. ENT: Oral mucosa moist, tongue midline. Nares patent, no nasal septal hematoma, TMs intact. Scarring noted to the bilateral TM's, small clear fluid on the left. NECK: Full range of motion, supple, trachea midline. No nuchal rigidity. LUNGS: Clear to auscultation bilaterally, no wheezes, rales or rhonchi, no respiratory distress. HEART: Regular rate and rhythm, no murmurs, gallops, rubs. Currently not in atrial fibrillation. ABDOMEN: Soft, nontender, nondistended, bowel sounds present in all 4 quadrants. EXTREMITIES: Moves all 4 extremities spontaneously, no edema, radial and dorsalis pedis pulses 2/4 bilaterally. No cyanosis. NEUROLOGICAL: Alert and oriented x3, normal speech, cranial nerves II through XII grossly intact, biceps and patellar DTRs 2+ bilaterally. Finger-nose and [id number] testing intact. 5 out of 5 muscle strength in all 4 extremities. Sensation intact. PSYCH: Somewhat depressed, not crying. SKIN: Warm, Dry, normal turgor, no rashes or lesions noted. Course - Re-evaluation Re-evalutation: 09/20/19 18:18 CBC unremarkable, INR slightly prolonged, CMP unremarkable, troponin and CK CK- MB negative Chest X-Ray 09/20/19 13:55 IMPRESSION: NO ACUTE RADIOGRAPHIC FINDING IN THE CHEST. Head CT 09/20/19 13:55 IMPRESSION: NORMAL BRAIN CT WITHOUT CONTRAST. EVIDENCE OF ACUTE STROKE: NO. Doubt stroke or subarachnoid hemorrhage particularly since this was very slow in onset and patient has no neurologic deficits. No evidence of subarachnoid hemorrhage. No indication for lumbar puncture. Discussed with patient that she does feel safe at home, does not think she is going to hurt herself if she goes home, discussed with that he also feels like she is safe to go home as she has been very honest with him since she started feeling depressed. Discussed that patient's risk of stroke in the next year is only 2.2% according to the CHADSVASC score and she is quite reassured by this. Patient admits that she thinks she is depressed over several new diagnoses and she did not realize that her risk was only 2.2%. Patient is agreeable to being started on an antidepressant and also to being referred to a counselor for outpatient therapy. Patient's headache is treated with Toradol, Compazine and Benadryl and she was also advised on nasal saline rinses to help with some of the sinus congestion as she does describe rhinorrhea. On physical examination I found very minimal evidence of any sinusitis, certainly no evidence of acute bacterial sinusitis. No indication for antibiotics. No real role for decongestants in this patient given her atrial fibrillation history. - Vital Signs Vital signs: Temp Pulse Resp BP Pulse Ox 98.2 F 74 20 150/74 H 97 09/20/19 13:32 09/20/19 18:36 09/20/19 19:01 09/20/19 19:01 09/20/19 19:01 - Laboratory Result Diagrams: 09/20/19 15:50 09/20/19 17:24 Laboratory results interpreted by me: 09/20/19 09/20/19 15:50 15:50 RDW 14.7 H Towns % (Auto) 16.1 H PT 16.3 H - EKG Interpretation by Me Additional EKG results interpreted by me: 09/20/19 17:28 EKG shows sinus rhythm at a rate of 66, slight left axis deviation, normal intervals, no ST segment elevations or depressions, isolated T wave inversions noted in V2 per my interpretation. Discharge - Discharge Clinical Impression: Situational depression Headache Qualifiers: Headache type: unspecified Headache chronicity pattern: acute headache Intractability: intractable Qualified Code(s): R51 - Headache Atrial fibrillation Qualifiers: Atrial fibrillation type: paroxysmal Qualified Code(s): I48.0 - Paroxysmal atrial fibrillation Condition: Stable Disposition: HOME, SELF-CARE Additional Instructions: Today your headache did not show any signs of stroke or bleeding in your brain. We treated you with a one-time dose of Toradol as well as Compazine and Benadryl. There is no sign of bacterial sinus infection on your CAT scan today. You do have symptoms of some sinus congestion however so please use nasal saline rinses such as a NetiPot or NeilMed Sinus Rinses. Please use nasal steroid such as Nasonex 1 squirt per nostril twice a day to decrease inflammation and swelling. Coricidin HBP is the only yyxw-yok-gkxssad decongestant that is safe for you to use with your atrial fibrillation and your high blood pressure. Today we discussed your feelings of depression and agreed that you would start on an antidepressant and see a counselor as an outpatient. I have provided you with the names of several outpatient counselors as well as a 30-day prescription for antidepressants. Please try the antidepressants for at least 1 month to allow them to truly work. If you start feeling like you want to kill yourself please return to the emergency department immediately. Prescriptions: Citalopram Hydrobromide [Celexa 20 mg Tablet] 20 mg PO DAILY #30 tablet Referrals: SALLY MARTIN MD [Primary Care Provider] - Follow up as needed
[2019-09-20 17:52] LABS: ALBUMIN 4.2 g/dL (3.5-5.0); ALKALINE PHOSPHATASE 63 U/L (38-126); ANION GAP 7 (5-19); ASPARTATE AMINO TRANSFERASE 25 U/L (14-36); BILIRUBIN,TOTAL 0.9 mg/dL (0.2-1.3); BLOOD UREA NITROGEN 7 mg/dL (7-20); CARBON DIOXIDE 30 mmol/L (22-30); CHLORIDE 101 mmol/L (98-107); CREATINE KINASE 40 U/L (30-135); GLUCOSE 90 mg/dL (75-110); POTASSIUM 4.4 mmol/L (3.6-5.0); TOTAL PROTEIN 7.1 g/dL (6.3-8.2)
[2019-09-20] MEDS ORDERED: PROCHLORPERAZINE EDISYLATE INJ 10 MG/2 ML VIAL IV ONE (17:56)
[2019-09-20] MEDS ORDERED: KETOROLAC TROMETHAMINE INJ/PF 30 MG/1 ML SDV IV ONE (17:56)
[2019-09-20] MEDS ORDERED: DIPHENHYDRAMINE HCL 50 MG/ML VIAL IV ONE (17:56)
[2019-09-20 18:04] LABS: CREATINE KINASE MB 0.48 ng/mL (<4.55)
[2019-09-20 18:05] LABS: TROPONIN I < 0.012 ng/mL
--- NOTE | 2019-09-20 18:24 | EKG REPORT ---
SEVERITY:- BORDERLINE ECG - SINUS RHYTHM ATRIAL PREMATURE COMPLEX : Confirmed by: Ruperto Grande MD 20-Sep-2019 18:23:46
[2019-09-20 19:11] VITALS: BP 150/74
== END 2019-09-20 19:57 | disposition home or self-care (01) ==
LOC: ER 13:18
DX: F32.9 Major depressive disorder, single episode, unspecified (principal); R51 Headache; R09.81 Nasal congestion; I10 Essential (primary) hypertension; J34.89 Other specified disorders of nose and nasal sinuses; I48.0 Paroxysmal atrial fibrillation; Z79.01 Long term (current) use of anticoagulants; Z88.0 Allergy status to penicillin
CPT/HCPCS: 93005; 99284; 96374; 96375; 36415; 82553; 82962; 82550; 85025; 85610; 85730; 80053; 84484; 71045; 70450; 93010; J1200; J1885; J0780

== ENCOUNTER 2019-09-24 19:41 | Emergency (ER) | payer BC ==
--- NOTE | 2019-09-24 22:38 | ER Document Report ---
ED Medical Screen (RME) - General Chief Complaint: Anxiety Stated Complaint: BLOOD PRESSURE ISSUES Time Seen by Provider: 09/24/19 22:29 Primary Care Provider: SALLY MARTIN MD [Primary Care Provider] - Follow up as needed TRAVEL OUTSIDE OF THE [place] IN LAST 30 DAYS: No - HPI Notes: 09/24/19 22:36 59-year-old female to the emergency department with complaints of elevated blood pressure tonight. She states that she had a blood pressure of 190 systolic. She states that she got very very nervous and panicky. She states that she felt like her head was full and she had a little bit of blurry vision as well. She states she was seen earlier in the week here for headache and was diagnosed with a sinusitis. She started to take the antibiotics tonight and that is when she s tarted to notice that her blood pressure was elevated. She states that she takes several blood pressure medicines. She states that she took her nighttime blood pressure medicine already tonight. She also reports intermittent episodes of depression. She states sometimes she feels like she cannot go on. She states that sometimes she feels like she is having harmful thoughts but denies any plan. She states that she does not feel that way tonight. I performed a brief medical screening exam on the patient and determined that she will need further evaluation and management by main type provider. I have ordered labs to help expedite in her care. - Related Data Allergies/Adverse Reactions: Penicillins Allergy (Intermediate, Verified 08/27/19 14:50) Swelling, itching Home Medications: amiodarone 200 mg qday. eliquis 10 mg qday. metoprolol 50 mg qday. magesium oxide. atorvastatin. doxcycline. zyrtec. flonase Past Medical History - Past Medical History Cardiac Medical History: Reports: Hx Atrial Fibrillation, Hx Hypertension - Controlled with meds Denies: Hx Congestive Heart Failure, Hx Coronary Artery Disease, Hx DVT, Hx Heart Attack, Hx Peripheral Vascular Disease, Hx Pulmonary Embolism Pulmonary Medical History: Denies: Hx Asthma, Hx Bronchitis, Hx COPD, Hx Pneumonia, Hx Respiratory Failure, Hx Sleep Apnea Neurological Medical History: Denies: Hx Cerebrovascular Accident, Hx Migraine, Hx Seizures Endocrine Medical History: Denies: Hx Diabetes Mellitus Type 1, Hx Diabetes Mellitus Type 2, Hx Hypothyroidism Musculoskeltal Medical History: Denies Hx Arthritis Past Surgical History: Reports: Hx Gynecologic Surgery - Uterine fibroids removed, Other - Right knee meniscus repair - Immunizations Hx Diphtheria, Pertussis, Tetanus Vaccination: Yes Physical Exam - Vital signs Vitals: Temp Pulse Resp BP Pulse Ox 98.4 F 62 16 190/82 H 100 09/24/19 19:52 09/24/19 19:52 09/24/19 19:52 09/24/19 19:52 09/24/19 19:52 Course - Vital Signs Vital signs: Temp Pulse Resp BP Pulse Ox 98.4 F 62 16 190/82 H 100 09/24/19 19:52 09/24/19 19:52 09/24/19 19:52 09/24/19 19:52 09/24/19 19:52 Doctor's Discharge - Discharge Referrals: SALLY MARTIN MD [Primary Care Provider] - Follow up as needed
[2019-09-24 23:20] LABS: ABSOLUTE BASOPHILS # (AUTO) 0.1 10^3/uL (0.0-0.2); ABSOLUTE EOSINOPHILS # (AUTO) 0.1 10^3/uL (0.0-0.6); ABSOLUTE LYMPHOCYTES (AUTO) 1.6 10^3/uL (0.5-4.7); ABSOLUTE MONOCYTES (AUTO) 1.4 10^3/uL (0.1-1.4); ABSOLUTE NEUT (AUTO) 9.8 10^3/uL (1.7-8.2); BASOPHILS % (AUTO) 0.6 % (0-2); EOSINOPHILS % (AUTO) 0.4 % (0-6); HEMATOCRIT 42.4 % (36.0-47.0); LYMPHOCYTES % (AUTO) 12.8 % (13-45); MEAN CORPUSCULAR HGB CONC 33.1 g/dL (32.0-36.0); MEAN CORPUSCULAR VOLUME 91 fl (80-97); MONOCYTES % (AUTO) 10.6 % (3-13); PLATELET COUNT 248 10^3/uL (150-450); RED BLOOD COUNT 4.67 10^6/uL (3.72-5.28); RED CELL DISTRIBUTION WIDTH 14.6 % (11.5-14.0); SEGMENTED NEUTROPHILS % (AUTO) 75.6 % (42-78); TOTAL CELLS COUNTED % (AUTO) 100 %; WHITE BLOOD COUNT 12.9 10^3/uL (4.0-10.5)
[2019-09-24 23:38] LABS: ALBUMIN 4.4 g/dL (3.5-5.0); ALKALINE PHOSPHATASE 75 U/L (38-126); ANION GAP 11 (5-19); ASPARTATE AMINO TRANSFERASE 27 U/L (14-36); BILIRUBIN,DIRECT 0.3 mg/dL (0.0-0.4); BILIRUBIN,TOTAL 0.7 mg/dL (0.2-1.3); BLOOD UREA NITROGEN 5 mg/dL (7-20); CALCIUM 10.5 mg/dL (8.4-10.2); CARBON DIOXIDE 29 mmol/L (22-30); CHLORIDE 99 mmol/L (98-107); GLUCOSE 104 mg/dL (75-110); POTASSIUM 4.5 mmol/L (3.6-5.0); TOTAL PROTEIN 7.7 g/dL (6.3-8.2)
--- NOTE | 2019-09-25 00:43 | ER Document Report ---
ED General - General Chief Complaint: Anxiety Stated Complaint: BLOOD PRESSURE ISSUES Time Seen by Provider: 09/24/19 22:29 Primary Care Provider: SALLY MARTIN MD [Primary Care Provider] - Follow up as needed Notes: Patient is a 59-year-old female who presents to the emergency department with fullness in her head. Patient has felt this way for a while. She was recently diagnosed with a sinus infection was placed on doxycycline. She is only taken 1 day of doxycycline. She is also on Flonase, but only places 1 spray to each nostril a day. She started the saline rinses today. Patient was also seen 3 days ago in the emergency department for similar symptoms. She was ordered Celexa, but due to the patient being on amiodarone, the pharmacy did not fill her prescription. Patient also has a history of atrial fibrillation. She is currently on blood thinners. TRAVEL OUTSIDE OF THE [place] IN LAST 30 DAYS: No - Related Data Allergies/Adverse Reactions: Penicillins Allergy (Intermediate, Verified 08/27/19 14:50) Swelling, itching Home Medications: amiodarone 200 mg qday. eliquis 10 mg qday. metoprolol 50 mg qday. magesium oxide. atorvastatin. doxcycline. zyrtec. flonase Past Medical History - Social History Smoking Status: Never Smoker Family History: Hypertension. denies: CAD, COPD, CVA, DM, Malignancy, Thyroid Disfunction Patient has suicidal ideation: Yes Patient has homicidal ideation: No - Past Medical History Cardiac Medical History: Reports: Hx Atrial Fibrillation, Hx Hypertension - Controlled with meds Denies: Hx Congestive Heart Failure, Hx Coronary Artery Disease, Hx DVT, Hx Heart Attack, Hx Peripheral Vascular Disease, Hx Pulmonary Embolism Pulmonary Medical History: Denies: Hx Asthma, Hx Bronchitis, Hx COPD, Hx Pneumonia, Hx Respiratory Failure, Hx Sleep Apnea Neurological Medical History: Denies: Hx Cerebrovascular Accident, Hx Migraine, Hx Seizures Endocrine Medical History: Denies: Hx Diabetes Mellitus Type 1, Hx Diabetes Mellitus Type 2, Hx Hypothyroidism Musculoskeletal Medical History: Denies Hx Arthritis Past Surgical History: Reports: Hx Gynecologic Surgery - Uterine fibroids removed, Other - Right knee meniscus repair - Immunizations Hx Diphtheria, Pertussis, Tetanus Vaccination: Yes Review of Systems - Review of Systems Notes: REVIEW OF SYSTEMS: CONSTITUTIONAL : Denies recent illness. Denies recent unintentional weight loss. Denies fever, chills, or sweats. EENT: Denies eye, ear, throat, or mouth pain, discharge, or symptoms. See HPI. CARDIOVASCULAR: Denies chest pain. RESPIRATORY: Denies shortness of breath, cough, congestion, difficulty breathing, or wheezing. GASTROINTESTINAL: Denies nausea, vomiting, and diarrhea. Denies abdominal pain. Denies constipation. GENITOURINARY: Denies difficulty urinating, burning, blood in urine, urgency or frequency. MUSCULOSKELETAL: Denies neck and back pain. Denies joint pain or swelling. SKIN: Denies rash, itchiness, or lesions HEMATOLOGIC : Denies easy bruising or bleeding. LYMPHATIC: Denies swollen, painful, enlarged glands. NEUROLOGICAL: Denies no numbness or tingling denies weakness. Denies headache. Denies alteration in speech. See HPI. PSYCHIATRIC: Denies stress, anxiety, alteration in sleep patterns, or depression. All other systems reviewed and negative. Physical Exam - Vital signs Vitals: Temp Pulse Resp BP Pulse Ox 98.4 F 62 16 190/82 H 100 09/24/19 19:52 09/24/19 19:52 09/24/19 19:52 09/24/19 19:52 09/24/19 19:52 - Notes Notes: PHYSICAL EXAMINATION: GENERAL: Appears well, healthy, well-nourished, no acute distress. HEAD: Normocephalic, atraumatic. EYES: PERRL, conjunctiva normal, all extraocular movements intact, sclera nonicteric ENT: Moist mucous membranes. Tympanic membranes injected bilaterally. NECK: Supple, no noticeable swelling, redness, rash. Normal range of motion. LUNGS: Equal breath sounds bilaterally and clear to auscultation. No wheezes rales or rhonchi. CARDIOVASCULAR: S1-S2, regular rate, regular rhythm. Radial pulses 2+, normal. ABDOMEN: Normoactive bowel sounds. Soft, nontender, no guarding, no rebound tenderness, and no masses palpated. EXTREMITIES: Normal strength and range of motion, no pitting or edema. No cyanosis. NEUROLOGICAL: Moves all extremities upon command. Strength 5/5 in all extremities. PSYCH: Normal mood, normal affect. SKIN: Warm, dry. No rash, lesions, ulcerations noted. Normal skin turgor. Course - Re-evaluation Re-evalutation: 09/25/19 00:39 Hematology shows a white blood cell count of 12,900. No shift. This is most likely due to her sinus infection. She also has otitis media bilaterally noted on physical exam. Chemistries show a calcium of 10.5. Encouraged the patient to drink plenty of fluids.I did an extensive chart review and her CT of the head the other day was unremarkable. I offered another head CT and the patient refused. Patient has only been on doxycycline for 1 day. I explained to her that she has not been on doxycycline long enough for her sinus infection and that I would like her to continue her doxycycline and I also told her that it may take a few days for her to start feeling better. I also advised her to continue nasal rinses and spray 2 sprays of Flonase in her nasal passages. She is in agreement with this plan. Follow-up precautions were given. Verbal discharge instructions were given to the patient. They verbalized understanding. They are stable for discharge. - Vital Signs Vital signs: Temp Pulse Resp BP Pulse Ox 98.3 F 69 18 177/89 H 98 09/25/19 00:50 09/25/19 00:50 09/25/19 00:50 09/25/19 00:50 09/25/19 00:50 - Laboratory Result Diagrams: 09/24/19 23:00 09/24/19 23:00 Laboratory results interpreted by me: 09/24/19 09/24/19 23:00 23:00 WBC 12.9 H RDW 14.6 H Lymph % (Auto) 12.8 L Absolute Neuts (auto) 9.8 H BUN 5 L Calcium 10.5 H - EKG Interpretation by Me Additional EKG results interpreted by me: 09/24/19 Sinus bradycardia. Rate 58. DC 168; QRS 84; QT 460; QTc 452. No ST elevations or depressions noted. Discharge - Discharge Clinical Impression: Sinus congestion Hypertension Qualifiers: Hypertension type: unspecified Qualified Code(s): I10 - Essential (primary) hypertension Otitis media Qualifiers: Otitis media type: mucoid Chronicity: acute Laterality: bilateral Qualified Code(s): H65.113 - Acute and subacute allergic otitis media (mucoid) (sanguinous) (serous), bilateral Condition: Stable Disposition: HOME, SELF-CARE Instructions: Anxiety ([facility]) Additional Instructions: You were seen today in the emergency department for sinus congestion and not quite feeling right. Please continue your doxycycline. It may take to 5 days for you to start feeling better. Please continue your nasal rinses. After you rinse your nose in the morning, spray 2 sprays of your Flonase to both nostrils. Your blood pressure will come down once your infection clears. You also have an ear infection and the doxycycline will help clear your ear infection. Referrals: SALLY MARTIN MD [Primary Care Provider] - Follow up as needed
[2019-09-25 00:51] VITALS: BP 177/89
--- NOTE | 2019-09-25 09:46 | EKG REPORT ---
SEVERITY:- NORMAL ECG - SINUS RHYTHM : Confirmed by: Paul Cameron 25-Sep-2019 09:46:16
== END 2019-09-25 00:49 | disposition home or self-care (01) ==
LOC: ER 19:41
DX: H65.113 Acute and subacute allergic otitis media (mucoid) (sanguinous) (serous), bilateral (principal); R09.81 Nasal congestion; F41.9 Anxiety disorder, unspecified; I48.91 Unspecified atrial fibrillation; I10 Essential (primary) hypertension; Z88.0 Allergy status to penicillin
CPT/HCPCS: 36415; 80053; 85025; 93005; 93010; 99283

== ENCOUNTER 2019-10-15 14:42 | Emergency (ER) | payer BC ==
[2019-10-15 15:31] VITALS: BP 176/78
--- NOTE | 2019-10-15 15:56 | ER Document Report ---
ED Medical Screen (RME) - General Chief Complaint: Allergic Reaction Stated Complaint: REACTION TO DEPRESSION PILL Time Seen by Provider: 10/15/19 15:49 Primary Care Provider: SALLY MARTIN MD [Primary Care Provider] - Follow up tomorrow Notes: 59-year-old female presented to ED for complaint of feeling weird crazy different depressed and cannot think straight. She states she just started on a new psych medicine sertraline 2 days ago after the second dose she started feeling all these changes. She states she is also having pressure in her face pressure in her sinuses and some pressure in her ear. She states she has been taking her allergy medicine. Patient is alert oriented respirations regular nonlabored speaking in full sentences at this time. I did speak with Dr. Hernandez who recommended Benadryl for sleep tonight and for her to follow-up with the primary doctor Dr. Martin first thing in the morning to discuss her medications. I have discussed this with the patient. TRAVEL OUTSIDE OF THE [place] IN LAST 30 DAYS: No - HPI Onset: This morning Onset/Duration: Intermittent Quality of pain: Achy, Pressure Severity: Mild Pain Level: 1 Associated Symptoms: Rhinorrhea, Sinus pain/drainage, Other - Feeling crazy we ird out of her head Exacerbated by: Denies Relieved by: Denies Similar symptoms previously: Yes Recently seen / treated by doctor: Yes - Related Data Smoking: Quit greater than 1 year Frequency of alcohol use: Rare Drug Abuse: None Allergies/Adverse Reactions: Penicillins Allergy (Intermediate, Verified 10/15/19 15:52) Swelling, itching Past Medical History - General Information source: Patient - Social History Cigarette use (# per day): No - Former Frequency of alcohol use: Rare Drug Abuse: None Lives with: Family Family history: Reviewed & Not Pertinent - Past Medical History Cardiac Medical History: Reports: Hx Atrial Fibrillation, Hx Hypercholesterolemia, Hx Hypertension - Controlled with meds Pulmonary Medical History: Reports: None EENT Medical History: Reports: None Neurological Medical History: Reports: None Endocrine Medical History: Reports: None Renal/ Medical History: Reports: None Malignancy Medical History: Reports: None GI Medical History: Reports: Hx Colonoscopy, Hx Endoscopy Musculoskeltal Medical History: Reports None Skin Medical History: Reports None Psychiatric Medical History: Reports: Hx Anxiety, Hx Depression Traumatic Medical History: Reports: None Infectious Medical History: Reports: None Past Surgical History: Reports: Hx Breast Surgery - Biopsy, Hx Gynecologic Surgery - Uterine fibroids removed, Hx Orthopedic Surgery - Right knee meniscus repair, Other - Immunizations Hx Diphtheria, Pertussis, Tetanus Vaccination: Yes Review of Systems - Review of Systems Constitutional: No symptoms reported EENT: Nose congestion, Nose discharge, Sinus pressure, Sinus discharge Cardiovascular: No symptoms reported Respiratory: No symptoms reported Gastrointestinal: No symptoms reported Genitourinary: No symptoms reported Female Genitourinary: No symptoms reported Musculoskeletal: No symptoms reported Skin: No symptoms reported Hematologic/Lymphatic: No symptoms reported Neurological/Psychological: No symptoms reported -: Yes All other systems reviewed and negative Physical Exam - Vital signs Vitals: Temp Pulse Resp BP Pulse Ox 98.0 F 48 L 18 176/78 H 97 10/15/19 15:30 10/15/19 15:30 10/15/19 15:30 10/15/19 15:30 10/15/19 15:30 Interpretation: Normal - General General appearance: Appears well, Alert - HEENT Head: Normocephalic, Atraumatic Eyes: Normal Pupils: PERRL Ears: Normal External canal: Normal Tympanic membrane: Normal Sinus: Normal Nasal: Purulent discharge, Swelling Mouth/Lips: Normal Mucous membranes: Normal Pharynx: Normal Neck: Normal - Respiratory Respiratory status: No respiratory distress Chest status: Nontender Breath sounds: Nonproductive cough Chest palpation: Normal - Cardiovascular Rhythm: Regular Heart sounds: Normal auscultation Murmur: No - Abdominal Inspection: Normal Distension: No distension Bowel sounds: Normal Tenderness: Nontender Organomegaly: No organomegaly - Back Back: Normal, Nontender - Extremities General upper extremity: Normal inspection, Nontender, Normal color, Normal ROM, Normal temperature General lower extremity: Normal inspection, Nontender, Normal color, Normal ROM, Normal temperature, Normal weight bearing. No: Faby's sign - Neurological Neuro grossly intact: Yes Cognition: Normal Orientation: AAOx4 [place] Coma Scale Eye Opening: Spontaneous [place] Coma Scale Verbal: Oriented [place] Coma Scale Motor: Obeys Commands [place] Coma Scale Total: 15 Speech: Normal Motor strength normal: LUE, RUE, LLE, RLE Sensory: Normal - Psychological Associated symptoms: Normal affect, Normal mood - Skin Skin Temperature: Warm Skin Moisture: Dry Skin Color: Normal Course - Vital Signs Vital signs: Temp Pulse Resp BP Pulse Ox 98.0 F 48 L 18 176/78 H 97 10/15/19 15:30 10/15/19 15:30 10/15/19 15:30 10/15/19 15:30 10/15/19 15:30 Doctor's Discharge - Discharge Clinical Impression: Reaction to mental health medicine URI (upper respiratory infection) Qualifiers: URI type: unspecified viral URI Qualified Code(s): J06.9 - Acute upper respiratory infection, unspecified Condition: Stable Disposition: HOME, SELF-CARE Additional Instructions: UPPER RESPIRATORY ILLNESS: You have a viral infection of the respiratory passages -- a "cold." This common infection causes nasal congestion, drainage, and often sore throat and cough. It is highly contagious. The disease usually lasts about 10 to 14 days. There is no "cure" for the viral infection -- it must run its course. If there is a complication, such as bacterial infection in the nose, sinuses, middle ear, or bronchial tubes, antibiotics may be required. The antibiotics won't affect the virus. Drink plenty of fluids. A humidifier may help. An expectorant medication or decongestant may make you more comfortable. Use acetaminophen or ibuprofen for fever or aches. See the doctor if fever persists over two days, if there is any significant worsening of your symptoms, or if you simply fail to improve as expected. You have been recommended with Coricidin HBP. You could also use Flonase which is [id number] 1 spray each nostril twice a day. You could also use salt soda solution gargles. These will help to remove the drainage from the back your throat. Chloraseptic spray was [id number] that will also help with your sore throat. Salt and soda solution gargle 1 quart of water 1 tablespoon of salt 1 teaspoon of baking soda Mixed 3 ingredients together and boil for 1 minute Placed in a covered quart jar Use 1/2 ounce of cold solution to gargle 3 times a day USE OF ACETAMINOPHEN (Tylenol): Acetaminophen may be taken for pain relief or fever control. It's much safer than aspirin, offering a wider range of "safe" dosages. It is safe during . Some brand names are Tylenol, Panadol, Datril, Anacin 3, Tempra, and Liquiprin. Acetaminophen can be repeated every four hours. The following are maximum recommended dosages: >89 pounds or adults 650 mg to 900 mg Acetaminophen can be repeated every four hours. Maximum dose not to exceed 4000 mg a day. Diphenhydramine The use of diphenhydramine (Benadryl) has been recommended to control allergic symptoms. The 25 mg strength is available over- the-counter, as well as the elixir. This antihistamine is used for many symptoms. It's useful for itching, watering eyes and nose, allergic swelling, hives, and insect stings. The medication can be repeated four times daily. Age Elixir (12.5 mg/tsp) 25 mg pill 1 yr 1/4 tsp 2-3 yr 1/2 tsp 4-8 yr 1 tsp 9-14 yr 2 tsp one tab adult 1-2 tabs Antihistamines may cause drowsiness, especially with the first dose. Do not operate machinery or drive while under the effects of the medication. Do not combine the medication with alcohol, or with any other medication without talking to your doctor. FOLLOW-UP CARE: If you have been referred to a physician for follow-up care, call the physicians office for an appointment as you were instructed or within the next two days. If you experience worsening or a significant change in your symptoms, notify the physician immediately or return to the Emergency Department at any time for re-evaluation. Forms: Elevated Blood Pressure Referrals: SALLY MARTIN MD [Primary Care Provider] - Follow up tomorrow
== END 2019-10-15 16:23 | disposition home or self-care (01) ==
LOC: ER 14:42
DX: R29.818 Other symptoms and signs involving the nervous system (principal); T50.905A Adverse effect of unspecified drugs, medicaments and biological substances, initial encounter; F32.9 Major depressive disorder, single episode, unspecified; J06.9 Acute upper respiratory infection, unspecified; B97.89 Other viral agents as the cause of diseases classified elsewhere; J34.89 Other specified disorders of nose and nasal sinuses; R09.81 Nasal congestion; R05 Cough; I10 Essential (primary) hypertension; Z87.891 Personal history of nicotine dependence; Z79.899 Other long term (current) drug therapy; Z88.0 Allergy status to penicillin
CPT/HCPCS: 99283